=== PATIENT | female | born 1950 | race Caucasian/White ===

== ENCOUNTER 2019-10-21 15:59 | Outpatient (CLI) | payer MEDICARE, OTHER, SELFPAY ==
--- NOTE | ~2019-10-21 | XR_ITS ---
EXAMINATION: XR chest 2V EXAM DATE: 10/21/2019 17:05 INDICATION: Chronic cough. TECHNIQUE: Frontal and lateral projections of the chest obtained and reviewed. Comparison is made to prior examination from 03/25/2009. FINDINGS: The lungs are clear. There are no pleural effusions. The cardiomediastinal silhouette is within normal limits. There is no pneumothorax suspected. The bones and soft tissues are unremarkab le. IMPRESSION: Unremarkable chest x-ray exam. Reviewed, dictated and finalized at location A. AL ADMINISTRATOR
--- NOTE | ~2019-10-21 | XR_ITS ---
EXAMINATION: XR sinus <3V EXAM DATE: 10/21/2019 17:05 INDICATION: Chronic cough. TECHNIQUE: Frontal, lateral, submentovertex projections of the skull. There is no prior study for c omparison. FINDINGS: There is hyperostosis frontalis. Nearly completely opacified left maxillary sinus, with so me aeration identified at the cephalad most portion, could indicate that some of this opacity is flui d. There may be mild right maxillary sinus mucoperiosteal disease, but otherwise sinuses and mastoid air cells appear well-aerated. Orbits are unremarkable. Dental crowns. IMPRESSION: Nearly completely opacified left frontal sinus. Reviewed, dictated and finalized at location A. ESTRATOR
[2019-10-21 16:36] LABS: Basophils Absolute Auto 0.1 K/mm3 (0.0-0.1); Basophils Percent Auto 0.9 % (0.2-1.2); Eosinophils Absolute Auto 0.1 K/mm3 (0-0.3); Eosinophils Percent Auto 0.9 % (0-4.4); Hematocrit 39.3 % (37.0-47.0); Immature Granulocyte Absolute 0.04 K/mm3 (0.00-0.031); Immature Granulocyte Percent A 0.6 % (0-0.5); Lymphocytes Absolute Auto 0.99 K/mm3 (0.9-3.2); Lymphocytes Percent Auto 14.8 % (18.3-44.2); Mean Corpuscular HGB Conc 35.6 g/dl (32-36); Mean Corpuscular Hemoglobin 35.4 pg (26-34); Mean Corpuscular Volume 99.2 fl (80-100); Mean Platelet Volume 9.5 fl (7.4-10.4); Monocytes Absolute Auto 0.8 K/mm3 (0.1-0.6); Monocytes Percent Auto 11.9 % (2.6-8.5); Neutrophils Absolute Auto 4.8 K/mm3 (1.3-6.7); Neutrophils Percent Auto 70.9 % (45.5-73.1); Platelet Count Result 274 k/mm3 (150-375); Red Blood Count 3.96 M/mm3 (4.2-5.4); Red Cell Distribution Width 12.5 % (11.5-14.5); White Blood Count 6.7 K/mm3 (4.5-10.0)
[2019-10-21 16:48] LABS: Alanine Aminotransferase 70 U/L (4-35); Albumin Level 4.8 g/dL (3.5-5.1); Alkaline Phosphatase 156 U/L (38-126); Aspartate Amino Transferase 99 U/L (14-36); Bilirubin,Total 1.1 mg/dL (0.2-1.3); Blood Urea Nitrogen 12 mg/dL (7-17); Calcium 9.1 mg/dL (8.4-10.2); Carbon Dioxide 20 mmol/L (22-30); Chloride 87 mmol/L (98-107); Estimated Glomerular Filt Rate > 60; Glucose 95 mg/dL (65-105); Potassium 4.5 mmol/L (3.4-5.0); Sodium 124 mmol/L (137-145)
[2019-10-21 17:25] LABS: Free T4 Free Thyroxine 1.54 ng/mL (0.78-2.19)
[2019-10-21 17:59] LABS: Folic Acid > 20.0 ng/mL (2.76->20)
== END 2019-10-21 16:00 | disposition home or self-care (01) ==
LOC: ANHLAB 16:05
PROVIDERS: PCP Internal Medicine; Visit Provider Internal Medicine
DX: E53.8 Deficiency of other specified B group vitamins (principal); I10 Essential (primary) hypertension; Z79.899 Other long term (current) drug therapy; R05 Cough; J32.9 Chronic sinusitis, unspecified
CPT/HCPCS: 36415; 70210; 71046; 80053; 82607; 82746; 84439; 84443; 85025

== ENCOUNTER 2019-10-28 08:44 | Outpatient (CLI) | payer MEDICARE, OTHER, SELFPAY ==
--- NOTE | ~2019-10-28 | XR_ITS ---
XR UGIAC w barium swallow DATE: 10/28/2019 09:41 INDICATION: Cough, nausea TECHNIQUE: Single contrast upper gastrointestinal series COMPARISON: 11/11/2016 air contrast upper gastrointestinal series FINDINGS: There is a sliding hiatal hernia. Status post partial gastrectomy with patent afferent and efferent loops. No stricture, ulceration, o bstruction. The small bowel appears normal. IMPRESSION: Small sliding hiatal hernia Partial gastrectomy Status post lumbar surgical fusion Reviewed, dictated and finalized at Location A. Reviewed, dictated and finalized at location A.
== END 2019-10-28 08:45 | disposition home or self-care (01) ==
PROVIDERS: PCP Internal Medicine; Visit Provider Internal Medicine
DX: R05 Cough (principal); K44.9 Diaphragmatic hernia without obstruction or gangrene; Z90.49 Acquired absence of other specified parts of digestive tract; Z98.1 Arthrodesis status
CPT/HCPCS: 74246

== ENCOUNTER 2019-10-31 09:26 | Outpatient (CLI) | payer MEDICARE, OTHER, SELFPAY ==
--- NOTE | ~2019-10-31 | US_ITS ---
US abdomen complete DATE: 10/31/2019 10:15 INDICATION: Elevated liver enzymes TECHNIQUE: Real-time imaging and Doppler analysis of the abdomen COMPARISON: 05/15/2017 CT abdomen 02/14/2017 complete abdominal ultrasound examination FINDINGS: There is hepatic steatosis. No hepatic or pancreatic space-occupying mass lesion is evident . Normal hepatic portal venous flow direction. Status post cholecystectomy. The common bile duct measures approximately 4.5 mm-7 diameter, which may be within normal range considering cholecystectomy. Recommend correlation with serum bilirubin level . Right kidney measures approximately 9.6 cm length. Left kidney measures approximately 10 cm length. N o renal mass lesion or hydronephrosis. Normal caliber of the abdominal aorta. Inferior vena cava is u nremarkable. Normal splenic size. IMPRESSION: Hepatic steatosis Status post cholecystectomy; this may account for common bile duct diameter up to 7 mm. Recommend cor relation with serum bilirubin level. Reviewed, dictated and finalized at Location A. Reviewed, dictated and finalized at location A. IMPRESSION: Hepatic steatosis Status post cholecystectomy; this may account for common bile duct diameter up to 7 mm. Recommend correlation with serum bilirubin level.
== END 2019-10-31 09:27 | disposition home or self-care (01) ==
PROVIDERS: PCP Internal Medicine; Visit Provider Internal Medicine
DX: R74.8 Abnormal levels of other serum enzymes (principal); K76.0 Fatty (change of) liver, not elsewhere classified
CPT/HCPCS: 76700

== ENCOUNTER 2020-01-27 15:07 | Inpatient (IN) | payer MEDICARE, OTHER, SELFPAY ==
[2020-01-27] VITALS (25 sets, daily range): BP systolic 117–140; BP diastolic 68–114; PULSE 90–110; RESP 12–30; TEMP 36.2–37; O2SAT 98–100; BMI 28.5
--- NOTE | 2020-01-27 15:32 | ECG_ITS ---
Measurements Intervals [place] Rate: 101 P: 24 DC: 168 QRS: -16 QRSD: 88 T: 30 QT: 349 QTc: 454 Interpretive Statements SINUS TACHYCARDIA INCOMPLETE RIGHT BUNDLE BRANCH BLOCK LOW QRS VOLTAGE IN PRECORDIAL LEADS BORDERLINE R WAVE PROGRESSION, ANTERIOR LEADS MINIMAL Q WAVES- HIGH LATERAL LEADS BORDERLINE T WAVE ABNORMALITY- ANTERIOR LEADS ABNORMAL ECG Electronically Signed On 01-27-2020 15:49:25 CDT by Marciano Dominguez D.O.
--- NOTE | 2020-01-27 15:58 | ED.GIBLEED ---
HPI - GI Bleed General Chief complaint: GI Bleed Stated complaint: low blood pressure Time Seen by Provider: 01/27/20 15:28 Source: patient Mode of arrival: ambulatory Limitations: no limitations History of Present Illness HPI Narrative: This patient is a 69 year old female who prsents for evaluation for dark stools and lightheadness. Patient states she started noticing a change in her BM 3 weeks ago. She reports constipation and when she has a BM it is black. She reports her last BM was yesterday and it was black. She reports intermittent epigastic burning pain for 3 weeks as well. She has lightheadedness with position. She states before all these symptoms she was having issues with nausea and vomiting. She denies vomiting in 3 weeks. She also states she fell three weeks ago and she suffered a thoracic fracture. She was sent to ER by her PCP due to her appearing pale with HR 111. He also reports patient had blood pressure 86 systolic palp. She takes protonix daily. MD complaint: melena Related Data Home Medications Medication Instructions Recorded Confirmed albuterol sulfate 90 mcg/actuation 1 puff INHALATION Q4H PRN 06/22/19 10/21/19 aerosol inhaler bupropion HCl 150 mg tablet,12 hr 150 mg PO QAM 06/22/19 10/21/19 sustained-release fluticasone propionate 50 1 spray NASAL DAILY 06/22/19 10/21/19 mcg/actuation nasal spray,suspension folic acid 1 mg tablet 1 mg PO DAILY 06/22/19 10/21/19 mecobalamin (vitamin B12) 1,000 1,000 mcg SUBLINGUAL DAILY 06/22/19 10/21/19 mcg disintegrating tablet,sublingual multivitamin 1 tablet PO DAILY 06/22/19 10/21/19 ketoconazole 2 % shampoo 1 applic TOPICAL 2XW 10/21/19 10/21/19 pantoprazole 40 mg tablet,delayed 40 mg PO BID tablet 10/21/19 10/21/19 release vortioxetine 20 mg tablet 20 mg PO DAILY 10/21/19 10/21/19 oxycodone-acetaminophen 5 mg-325 1 tablet PO Q6H PRN 01/27/20 mg tablet pimecrolimus 1 % topical cream 1 applic TOPICAL BID 01/27/20 Allergies Allergy/AdvReac Type Severity Reaction Status Date / Time tetanus immune globulin Allergy Severe FEVER, FLU Verified 01/27/20 18:16 SX. adhesive tape Allergy Unknown Rash Verified 10/21/19 15:13 cefaclor Allergy Unknown Hives Verified 10/21/19 15:13 tetanus toxoid, adsorbed Allergy Unknown Unknown Verified 10/21/19 15:13 Tetanus Vaccines and Toxoid Allergy Unknown Unknown Verified 10/21/19 15:13 Review of Systems Review of Systems: All systems reviewed & are unremarkable except as noted in HPI and below Constitutional: Constitutional: Denies chills and Denies fever(s) ENT: Denies epistaxis Cardiovascular: Cardiovascular: Denies chest pain Respiratory: Respiratory: Denies cough and Denies dyspnea Gastrointestinal: Gastrointestinal: Reports abdominal pain, Reports melena, Reports constipation and Denies vomiting Neurologic: Reports dizziness and Denies focal weakness PMF Past Medical History Medical History (Updated 01/27/20 @ 19:49 by Leslie Galvan MD) Anxiety with depression Basal cell carcinoma of nose Benign essential hypertension Benign fundic gland polyps of stomach (~05/2017) Chronic sinusitis Eczema Gastroesophageal reflux disease Hyperplastic polyp of sigmoid colon Restless leg syndrome Vitamin B12 deficiency Vitamin D deficiency Surgical History Surgical History (Updated 01/27/20 @ 17:11 by Jyothi Silva PA-C) History of appendectomy History of cholecystectomy History of exploratory laparotomy (~10/2003) Removal of anterior abdominal wall mass (benign fibroid), adhesiolysis, and bilateral salpingo-oophorectomy with bladder repair. History of gastric bypass History of lumbar fusion History of vaginal hysterectomy Status post functional endoscopic sinus surgery And bilateral maxillary antrostomy. Status post surgical removal of malignant neoplasm of skin Excision basal cell carcinoma from the bridge of the nose. Family History Family History (Updat
[2020-01-27 16:17] LABS: Basophils Absolute Auto 0.1 K/mm3 (0.0-0.1); Basophils Percent Auto 0.8 % (0.2-1.2); Eosinophils Absolute Auto 0.2 K/mm3 (0-0.3); Eosinophils Percent Auto 1.4 % (0-4.4); Hematocrit 27.2 % (37.0-47.0); Hemoglobin 9.2 g/dL (12.0-15.0); Immature Granulocyte Absolute 0.18 K/mm3 (0.00-0.031); Immature Granulocyte Percent A 1.5 % (0-0.5); Lymphocytes Absolute Auto 0.88 K/mm3 (0.9-3.2); Lymphocytes Percent Auto 7.5 % (18.3-44.2); Mean Corpuscular HGB Conc 33.8 g/dl (32-36); Mean Corpuscular Hemoglobin 36.4 pg (26-34); Mean Corpuscular Volume 107.5 fl (80-100); Mean Platelet Volume 11.6 fl (7.4-10.4); Monocytes Absolute Auto 0.9 K/mm3 (0.1-0.6); Monocytes Percent Auto 7.5 % (2.6-8.5); Neutrophils Absolute Auto 9.6 K/mm3 (1.3-6.7); Neutrophils Percent Auto 81.3 % (45.5-73.1); Nucleated Red Blood Cells Perc 0.2 % (0.0-0.2); Platelet Count Result 456 k/mm3 (150-375); Red Blood Count 2.53 M/mm3 (4.2-5.4); Red Cell Distribution Width 14.5 % (11.5-14.5); White Blood Count 11.8 K/mm3 (4.5-10.0)
[2020-01-27 16:27] LABS: Prothrombin Time 12.6 Seconds (11.1-14.7)
[2020-01-27 16:28] LABS: Partial Thromboplastin Time 28.9 SECONDS (22.3-36.8)
[2020-01-27 16:30] LABS: Alanine Aminotransferase 14 U/L (4-35); Albumin Level 3.8 g/dL (3.5-5.1); Alkaline Phosphatase 152 U/L (38-126); Aspartate Amino Transferase 22 U/L (14-36); Bilirubin,Total 0.3 mg/dL (0.2-1.3); Blood Urea Nitrogen 9 mg/dL (7-17); Calcium 8.8 mg/dL (8.4-10.2); Carbon Dioxide 24 mmol/L (22-30); Chloride 101 mmol/L (98-107); Estimated CRCL calculation 52 ml/min; Estimated Glomerular Filt Rate 55; Glucose 100 mg/dL (65-105); Lactic Acid Reflex 0.9 mmol/L (0.7-2.1); Sodium 132 mmol/L (137-145)
--- NOTE | 2020-01-27 17:03 | PM.IMHP ---
H&P: HPI History of Present Illness Chief complaint: ?Low blood pressure.? Narrative: Juliet Weinstein is a 69-year-old female with a medical history significant for hypertension and GERD who presented to the emergency department earlier this afternoon from Dr. Klein' office for evaluation of ?low blood pressure.? She has had longstanding problems with constipation, and typically has a bowel movement 2 times per week, however has been more constipated recently. In the last 3 weeks, she has only had 2 bowel movements and she had to take stool softeners and milk of magnesia in order to make that happen. Her stools with both of those bowel movements were very dark, and she made an appointment with Dr. Klein today for evaluation of such. On arrival, her blood pressure was reportedly 88 over palpable and she was directed to the emergency department. There she was found to have a drop in her hemoglobin (14.0 --> 9.2) in approximately 3 months time. With further questioning, she is been having GI issues for the past several months and in fact had and upper GI with barium swallow on 10/28/2019 for evaluation of nausea and coughing with solids. That study was unremarkable, however she continues to have symptoms which also include belching and abdominal bloating. She does suffer from GERD, and says that is not necessarily any worse than usual, for which she takes a PPI and Tums on occasion. Coffee seems to upset her stomach and she has been avoiding that for the last several months. She drinks perhaps 1 glass of wine in evening. She also mentions having dizzy spells, mainly with position changes, and in fact she is wondering if her dizziness may have caused her fall several weeks ago, in which she sustained a compression fracture. She was given muscle relaxers and narcotics for pain without much benefit. Instead, she has been taking Advil 600 to 800 milligrams 3 times a day for the past 3 weeks. She has no history of peptic ulcers. She denies significant abdominal pain, only occasional upper abdominal burning which she attributes to GERD. No recent hematemesis but she does report a small amount of bright red blood while retching a couple of weeks ago. Review of Systems Review of Systems: Narrative: Twelve systems were reviewed with pertinent positives and negatives as per HPI. No fever, chills, or sweats. She does suffer from seasonal rhinitis this time of year. She denies cold and flu symptoms. No chest pain or palpitations. No shortness of breath. She has been a bit more fatigued recently. Except as documented, all other systems were reviewed and are negative. [facility] Past Medical History Medical History (Updated 01/27/20 @ 19:49 by Leslie Galvan MD) Anxiety with depression Basal cell carcinoma of nose Benign essential hypertension Benign fundic gland polyps of stomach (~05/2017) Chronic sinusitis Eczema Gastroesophageal reflux disease Hyperplastic polyp of sigmoid colon Restless leg syndrome Vitamin B12 deficiency Vitamin D deficiency Surgical History Surgical History History of appendectomy History of cholecystectomy History of exploratory laparotomy (~10/2003) Removal of anterior abdominal wall mass (benign fibroid), adhesiolysis, and bilateral salpingo-oophorectomy with bladder repair. History of gastric bypass History of lumbar fusion History of vaginal hysterectomy Status post functional endoscopic sinus surgery And bilateral maxillary antrostomy. Status post surgical removal of malignant neoplasm of skin Excision basal cell carcinoma from the bridge of the nose. Family History Family History Sibling Family history of lung cancer Patient's sister is Father Family history of malignant melanoma Acute myocardial infarction Family history of throat cancer Mother Family history of lung cancer Other Fa
[2020-01-27 17:44] LABS: Hematocrit 23.9 % (37.0-47.0)
--- NOTE | 2020-01-27 18:29 | ADMGEN ---
This patient, Juliet Weinstein, was admitted to Medical Room 243-. Patient/family oriented to hospital policies and general routines including ID bracelet, bed and alarms, visiting hours, pain management, procedures, bathroom and other care routines, personal items, smoking policy, room service/diet, and visiting hours. Valuables list has been completed. Information on how to activate the Rapid Response Team has been discussed. Patient/Family are encouraged to report perceived risks to care and to ask questions if they do not understand what they are told or what they should do.
[2020-01-27] MEDS: LACTATED RINGERS 1,000 ML 125 ML IV CONT (18:51)
[2020-01-27] MEDS: LORAZEPAM 1 MG TABLET PO (22:19)
[2020-01-27] MEDS: PANTOPRAZOLE SODIUM IV 40 MG VIAL IV PUSH (22:20)
[2020-01-27 23:25] LABS: Hematocrit 21.1 % (37.0-47.0)
[2020-01-27 23:27] LABS: Hemoglobin 6.9 g/dL (12.0-15.0)
[2020-01-27 23:40] LABS: Blood Urea Nitrogen 10 mg/dL (7-17); Calcium 7.8 mg/dL (8.4-10.2); Carbon Dioxide 24 mmol/L (22-30); Chloride 106 mmol/L (98-107); Estimated CRCL calculation 58 ml/min; Estimated Glomerular Filt Rate > 60; Glucose 117 mg/dL (65-105); Magnesium 1.9 mg/dL (1.6-2.3); Potassium 3.2 mmol/L (3.4-5.0); Sodium 134 mmol/L (137-145)
[2020-01-27 23:54] LABS: Iron 24 ug/dL (37-170)
[2020-01-28] VITALS (17 sets, daily range): BP systolic 106–151; BP diastolic 58–87; PULSE 68–80; RESP 16–20; TEMP 35.8–36.8; O2SAT 95–100; BMI 28.5
[2020-01-28 00:04] LABS: Percent Iron Saturation 9 % (20-50)
[2020-01-28] MEDS: SODIUM CHLORIDE 0.9% IV 250 ML 30 ML IV CONT (00:50)
[2020-01-28 00:52] LABS: Vitamin B12 > 1000.0 pg/mL (239-931)
[2020-01-28] MEDS: LACTATED RINGERS 1,000 ML 125 ML IV CONT (04:16)
[2020-01-28 08:18] LABS: Hematocrit 31.8 % (37.0-47.0); Hemoglobin 10.8 g/dL (12.0-15.0)
[2020-01-28] MEDS: KCL 20 MEQ/SW 100 ML 100 ML 50 MEQ IVPB (08:21)
[2020-01-28] MEDS: PANTOPRAZOLE SODIUM IV 40 MG VIAL IV PUSH ×2 (08:22→19:58)
[2020-01-28 08:31] LABS: Blood Urea Nitrogen 8 mg/dL (7-17); Carbon Dioxide 24 mmol/L (22-30); Chloride 109 mmol/L (98-107); Estimated CRCL calculation 65 ml/min; Estimated Glomerular Filt Rate > 60; Glucose 92 mg/dL (65-105); Potassium 3.6 mmol/L (3.4-5.0); Sodium 135 mmol/L (137-145)
--- NOTE | 2020-01-28 10:25 | PC.NURSE ---
Pt to GI lab via stretcher, IV intact. Judy sent with patient.
[2020-01-28] MEDS: LACTATED RINGERS 1,000 ML 150 ML IV CONT (10:34)
--- NOTE | 2020-01-28 10:35 | WPDANESEPPF ---
Anes - Initial Pre Proc Eval Procedure: Operation Date: 01/28/20 11:30 Proposed Procedures p Esophagogastroduodenoscopy - Adiel Lofton MD Date/Time: 01/28/20 10:35 Surgeon: Brianna Dick PA-C Pre Op Diagnosis: ?Low blood pressure.? Patient Data Age: 69 Gender: F Height: 5 ft 7 in Weight: 82.7 kg Last Vital Signs Temp 36.2 C L 01/28/20 06:58 Pulse 78 01/28/20 06:58 Resp 18 01/28/20 06:58 BP 123/71 01/28/20 06:58 Pulse Ox 99 01/28/20 06:58 Allergies Allergy/AdvReac Type Severity Reaction Status Date / Time tetanus immune globulin Allergy Severe FEVER, FLU Verified 01/28/20 10:31 SX. adhesive tape Allergy Unknown Rash Verified 01/28/20 10:31 cefaclor Allergy Unknown Hives Verified 01/28/20 10:31 tetanus toxoid, adsorbed Allergy Unknown Unknown Verified 01/28/20 10:31 Tetanus Vaccines and Toxoid Allergy Unknown Unknown Verified 01/28/20 10:31 Home Medications Medication Instructions Recorded Confirmed Type albuterol sulfate 90 mcg/actuation 1 puff INHALATION Q4H PRN 06/22/19 01/27/20 History aerosol inhaler bupropion HCl 150 mg tablet,12 hr 150 mg PO QAM 06/22/19 01/27/20 History sustained-release fluticasone propionate 50 1 spray NASAL DAILY 06/22/19 01/27/20 History mcg/actuation nasal spray,suspension folic acid 1 mg tablet 1 mg PO DAILY 06/22/19 01/27/20 History mecobalamin (vitamin B12) 1,000 1,000 mcg SUBLINGUAL DAILY 06/22/19 01/27/20 History mcg disintegrating tablet,sublingual multivitamin 1 tablet PO DAILY 06/22/19 01/27/20 History hydrochlorothiazide 12.5 mg tablet 12.5 mg PO DAILY #90 tablet 08/03/19 01/27/20 Rx ketoconazole 2 % shampoo 1 applic TOPICAL 2XW 10/21/19 01/27/20 History pantoprazole 40 mg tablet,delayed 40 mg PO DAILY tablet 10/21/19 01/27/20 History release vortioxetine 20 mg tablet 20 mg PO DAILY 10/21/19 01/27/20 History benazepril 40 mg tablet 40 mg PO DAILY #90 tablet 12/27/19 01/27/20 Rx Cetaphil 1 applic TOPICAL BID 01/27/20 01/27/20 History betamethasone dipropionate 1 applic TOPICAL BID 01/27/20 01/27/20 History brexpiprazole [Rexulti] 1 mg PO DAILY 01/27/20 01/27/20 History duloxetine 30 mg PO DAILY 01/27/20 01/27/20 History ibuprofen 200 mg PO Q6-8H PRN 01/27/20 01/27/20 History lorazepam 1 mg PO HS 01/27/20 01/27/20 History montelukast 10 mg PO HS 01/27/20 01/27/20 History oxycodone-acetaminophen 5 mg-325 1 tablet PO Q6H PRN 01/27/20 01/27/20 History mg tablet pimecrolimus 1 % topical cream 1 applic TOPICAL BID 01/27/20 01/27/20 History triamcinolone acetonide 1 applic TOPICAL BID 01/27/20 01/27/20 History vitamin B complex [B-Complex] 1 tablet PO DAILY 01/27/20 01/27/20 History Laboratory Tests 01/27/20 01/27/20 01/27/20 16:11 16:11 16:11 WBC 11.8 K/mm3 H K/mm3 (4.5-10.0) RBC 2.53 M/mm3 L M/mm3 (4.2-5.4) Hgb 9.2 g/dL L D g/dL (12.0-15.0) Hct 27.2 % L % (37.0-47.0) MCV 107.5 fl H fl (80-100) MCH 36.4 pg H pg (26-34) MCHC 33.8 g/dl g/dl (32-36) RDW 14.5 % % (11.5-14.5) Plt Count 456 k/mm3 H D k/mm3 (150-375) MPV 11.6 fl H fl (7.4-10.4) Immature Gran % (Auto) 1.5 % H % (0-0.5) Neut % (Auto) 81.3 % H % (45.5-73.1) Lymph % (Auto) 7.5 % L % (18.3-44.2) George % (Auto) 7.5 % % (2.6-8.5) Eos % (Auto) 1.4 % % (0-4.4) Baso % (Auto) 0.8 % % (0.2-1.2) Lymph # (Auto) 0.88 K/mm3 L K/mm3 (0.9-3.2) George # (Auto) 0.9 K/mm3 H K/mm3 (0.1-0.6) Eos # (Auto) 0.2 K/mm3 K/mm3 (0-0.3) Baso # (Auto) 0.1 K/mm3 K/mm3 (0.0-0.1) Abs Immat Gran (auto) 0.18 K/mm3 H K/mm3 (0.00-0.031) Absolute Neuts (auto) 9.6 K/mm3 H K/mm3 (1.3-6.7) Absolute Nucleated RBC 0.0 K/mm3 K/mm3 (0.0-0.012) Nucleated RBC % 0.2 % % (0.0-0.2) PT 12.6 Seconds Seconds (11.1-14.
--- NOTE | 2020-01-28 11:09 | WPDGICN ---
Assessment and Plan Assessment and plan (1) Acute upper GI bleed: Code(s): K92.2 - Gastrointestinal hemorrhage, unspecified Status: Acute Assessment and Plan: Patient is suspected of having upper GI bleeding because of black melenic stools that are Hemoccult positive. Significant decline in hemoglobin. Plan is to follow hemoglobin closely treat with proton pump inhibitor. EGD will be performed to assess this today. (2) Hx of gastric bypass: Code(s): Z98.84 - Bariatric surgery status Status: Acute Assessment and Plan: Patient has a prior history of gastric bypass. GI Consult Note Consult date/time: 01/28/20 11:09 HPI: Juliet Weinstein is a 69 year old female Seen in evaluation at the request of the hospitalist service. Patient followed by Dr. Klein as an outpatient. Patient reports progressive weakness over last several weeks. She present to the emergency room last evening found to have significant decline in hemoglobin. Black melenic stools have been noted for about 2 days. Patient's past history is significant for gastric bypass. Review of Systems Review of Systems: All systems reviewed & are unremarkable except as noted in HPI and below PMFSH Past Medical History Medical History Anxiety with depression Basal cell carcinoma of nose Benign essential hypertension Benign fundic gland polyps of stomach (~05/2017) Chronic sinusitis Eczema Gastroesophageal reflux disease Hyperplastic polyp of sigmoid colon Restless leg syndrome Vitamin B12 deficiency Vitamin D deficiency Surgical History Surgical History History of appendectomy History of cholecystectomy History of exploratory laparotomy (~10/2003) Removal of anterior abdominal wall mass (benign fibroid), adhesiolysis, and bilateral salpingo-oophorectomy with bladder repair. History of gastric bypass History of lumbar fusion History of vaginal hysterectomy Status post functional endoscopic sinus surgery And bilateral maxillary antrostomy. Status post surgical removal of malignant neoplasm of skin Excision basal cell carcinoma from the bridge of the nose. Family History Family History Sibling Family history of lung cancer Patient's sister is Father Family history of malignant melanoma Acute myocardial infarction Family history of throat cancer Mother Family history of lung cancer Other Family history of congestive heart failure Family history of malignant neoplasm Social History Social History Social History: Surrogate decision maker: Vernon Rapien, . Code status: Full code. Smoking status: Never smoker Alcohol intake: current Drinks per week: 8 Substance use: never Additional living arrangements comments: Lives with spouse in [place]. Their 13-year-old grandson also lives with them. 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 Gender identity (if verbalized by the patient): Female Spiritual care concerns: No Meds Home Medications and Allergies Home Medications Medication Instructions Recorded Confirmed Type albuterol sulfate 90 mcg/actuation 1 puff INHALATION Q4H PRN 06/22/19 01/27/20 History aerosol inhaler bupropion HCl 150 mg tablet,12 hr 150 mg PO QAM 06/22/19 01/27/20 History sustained-release fluticasone propionate 50 1 spray NASAL DAILY 06/22/19 01/27/20 History mcg/actuation nasal spray,suspension folic acid 1 mg tablet 1 mg PO DAILY 06/22/19 01/27/20 History mecobalamin (vitamin B12) 1,000 1,000 mcg SUBLINGUAL DAILY 06/22/19 01/27/20 History mcg disintegrating tablet,sublingual multivitamin 1 tablet PO DAILY 06/22/19 01/27/20 History
[2020-01-28] MEDS: BENZOCAINE (*SP) 60 ML SPRAY CAN (HURRICAINE) 1 SPRAY MUCOUS MEM (11:22)
[2020-01-28 12:29] LABS: Hematocrit 38.1 % (37.0-47.0); Hemoglobin 12.1 g/dL (12.0-15.0)
[2020-01-28] MEDS: CYANOCOBALAMIN 1,000 MCG TABLET 1000 MCG PO (12:37)
[2020-01-28] MEDS: DULOXETINE HCL 30 MG CAPSULE.DR PO (12:37)
[2020-01-28] MEDS: buPROPion HCL XL (24 HR) 150 MG TABCR PO (12:37)
[2020-01-28] MEDS: MULTIVITAMINS THERAPEUTIC TAB (*BKC) 1 TABLET PO (12:37)
[2020-01-28] MEDS: VITAMIN B COMPLEX CAPSULE 1 CAP PO (12:37)
[2020-01-28] MEDS: FOLIC ACID 1 MG TABLET PO (12:37)
[2020-01-28] MEDS: PEG (High)/E-LYTE SOLN 4,000 ML BTL 4000 ML PO (12:38)
--- NOTE | 2020-01-28 14:37 | PM.IMPN ---
Progress Note: A&P Assessment and Plan (1) Dark stools: Code(s): R19.5 - Other fecal abnormalities Status: Acute Assessment and Plan: -----patient has a significant drop from her hemoglobin in October which was 14.0 down to 6.9 last night. She was transfused 2 units and now her hemoglobin is 12.1. This makes me question the validity of the initial hemoglobin of 6.9. Nevertheless, the patient is doing well in the EGD was normal. Continue PPI. Plan for colonoscopy tomorrow. Likely discharge tomorrow. (2) Macrocytic anemia: Code(s): D53.9 - Nutritional anemia, unspecified Status: Acute Assessment and Plan: -----patient appears iron deficient and is probably not absorbing much because her gastric bypass. Will do IV iron today. May need IV iron transfusions 3 hematology outpatient if this continues. (3) Gastroesophageal reflux disease: Code(s): K21.9 - Gastro-esophageal reflux disease without esophagitis Status: Acute Assessment and Plan: -----continue PPI (4) Hypotension: Code(s): I95.9 - Hypotension, unspecified Status: Acute Assessment and Plan: -----Systolic blood pressure was reportedly [address] Klein' office. She has not had any recurrence of this and her last systolic blood pressure was 134. (5) Electrolyte imbalance: Code(s): E87.8 - Other disorders of electrolyte and fluid balance, not elsewhere classified Status: Acute Assessment and Plan: -----improved. Sodium today was 134 and her potassium was 3.6. (6) Benign essential hypertension: Code(s): I10 - Essential (primary) hypertension Status: Acute Assessment and Plan: -----still holding antihypertensives at this time. Will likely be discharged on her regular home meds (7) Anxiety with depression: Code(s): F41.8 - Other specified anxiety disorders Status: Acute Assessment and Plan: -----some her medications are not formulary, she will likely be discharged early tomorrow and can resume them at home Time Spent With Patient Time with patient: 25 - 35 minutes Subjective Date/time seen: 01/28/20 14:37 Interval history: Pt is a 69-year-old female here for melena and with significant anemia patient. Patient was seen today and says that she has some burning across her abdomen but other than that she feels okay. She said about 2 weeks ago she threw up bright red blood but has not had any issues since. She continues to have dark stool but has not had a bowel movement in a week. She had a colonoscopy a year ago which showed 1 polyp. Although she has had epigastric burning for a couple months, she has not tried to take any Tums or Prilosec. She denies lightheadedness, dizziness, chest pain, fevers, chills, nausea or vomiting. Review of Systems Review of Systems: All systems reviewed & are unremarkable except as noted in HPI and below Exam Narrative: Exam Narrative: General: Well developed well nourished patient resting comfortably in bed in NAD HEENT: normocephalic Neck: supple Neuro: Alert and oriented x 4. CV:RRR Resp:CTA Abd: Soft, non distended. No pain to palpation. Positive bowel sounds Extremities: No swelling, erythema, or pain to palpation. Objective Data Vital Signs Vital Signs: Vital Signs - 24 hr 01/27/20 15:13 01/27/20 15:17 01/27/20 15:18 Temperature 98.6 F Pulse Rate 110 H 106 H 104 H Respiratory Rate 16 18 17 Blood Pressure 140/91 H 135/82 Pulse Oximetry 100 01/27/20 15:30 01/27/20 15:31 01/27/20 15:32 Temperature Pulse Rate 100 101 H 100 Respiratory Rate 21 H 19 16 Blood Pressure 129/68 Pulse Oximetry 01/27/20 15:53 01/27/20 16:00 01/27/20 16:01 Temperature Pulse Rate 93 95 93 Respiratory Rate 21 H 18 22 H Blood Pressure 125/77 Pulse Oximetry 01/27/20 16:15 01/27/20 16:16 01/27/20 16:17 Temperature
[2020-01-28 14:58] LABS: IFOB Positive Control Positive; Immunochemical Fecal Occult Bl Negative (N)
[2020-01-28] MEDS: IRON SUCROSE COMPLEX 100 MG in SODIUM CHLORIDE 0.9% IV 50 ML 220 MG IVPB (15:18)
[2020-01-28] MEDS: LACTATED RINGERS 1,000 ML 80 ML IV CONT (17:57)
[2020-01-28 18:22] LABS: Hemoglobin 11.2 g/dL (12.0-15.0)
[2020-01-28] MEDS: LIDOCAINE 5% PATCH TRANSDERM (19:53)
[2020-01-28] MEDS: LORAZEPAM 1 MG TABLET PO (19:58)
[2020-01-29 06:00] VITALS: BP 118/70; PULSE 78; RESP 20; TEMP 36.4; O2SAT 98
[2020-01-29 06:06] LABS: Hematocrit 30.1 % (37.0-47.0); Hemoglobin 10.4 g/dL (12.0-15.0); Mean Corpuscular HGB Conc 34.6 g/dl (32-36); Mean Corpuscular Hemoglobin 35.3 pg (26-34); Mean Platelet Volume 9.7 fl (7.4-10.4); Platelet Count Result 359 k/mm3 (150-375); Red Blood Count 2.95 M/mm3 (4.2-5.4); White Blood Count 6.1 K/mm3 (4.5-10.0)
[2020-01-29 06:24] LABS: Blood Urea Nitrogen 5 mg/dL (7-17); Calcium 8.2 mg/dL (8.4-10.2); Carbon Dioxide 25 mmol/L (22-30); Chloride 106 mmol/L (98-107); Estimated CRCL calculation 73 ml/min; Estimated Glomerular Filt Rate > 60; Glucose 97 mg/dL (65-105); Lactate Dehydrogenase 380 U/L (313-618); Potassium 3.7 mmol/L (3.4-5.0); Sodium 135 mmol/L (137-145)
[2020-01-29 06:33] VITALS: BP 148/94; PULSE 80; RESP 20; TEMP 36.7; O2SAT 98
[2020-01-29] MEDS: LACTATED RINGERS 1,000 ML 150 ML IV CONT (06:39)
--- NOTE | 2020-01-29 06:58 | WPDANESEFPP ---
Anes - Eval Final PreProcedure Day of Procedure 01/29/20 06:58 Patient weight: overweight Heart: regular rate and rhythm Lungs: clear to auscultation Airway: Mallampati scale class II Neurological: alert and oriented Last oral intake: >/= 8 hours ASA classification: III Emergent: no Anesthetic plan: proceed Anesthesia type and monitoring: general GIVS and standard monitoring Informed Consent: The patient's anesthetic plan and its attendant risks and benefits were discussed with the patient/family/POA. Questions were solicited and answers provided to the satisfaction of the patient/family/POA.
[2020-01-29 07:11] VITALS: BP 98/56; PULSE 70; RESP 22; O2SAT 98
[2020-01-29 07:21] VITALS: BP 115/79; PULSE 68; RESP 18; O2SAT 100
[2020-01-29 07:31] VITALS: BP 123/65; PULSE 69; RESP 18; O2SAT 99
[2020-01-29 07:45] VITALS: BP 131/68; PULSE 67; RESP 16; TEMP 36.4; O2SAT 98
[2020-01-29] MEDS: buPROPion HCL XL (24 HR) 150 MG TABCR PO (09:33)
[2020-01-29] MEDS: LIDOCAINE 5% PATCH TRANSDERM (09:33)
[2020-01-29] MEDS: DULOXETINE HCL 30 MG CAPSULE.DR PO (09:34)
[2020-01-29] MEDS: FOLIC ACID 1 MG TABLET PO (09:34)
[2020-01-29] MEDS: MULTIVITAMINS THERAPEUTIC TAB (*BKC) 1 TABLET PO (09:34)
[2020-01-29] MEDS: FLUTICASONE PROPIONATE 0.05% NA SPR 16 GM BTL (*BKC) 1 SPRAY NASAL (09:34)
[2020-01-29] MEDS: CYANOCOBALAMIN 1,000 MCG TABLET 1000 MCG PO (09:34)
[2020-01-29] MEDS: VITAMIN B COMPLEX CAPSULE 1 CAP PO (09:34)
[2020-01-29] MEDS: PANTOPRAZOLE SODIUM IV 40 MG VIAL IV PUSH (09:34)
--- NOTE | 2020-01-29 10:59 | WPDANESPN ---
Anes - Prog Note Post-Op Date/Time: 01/29/20 10:59 Cardiovascular status: normal Respiratory status: normal Airway patency: baseline Mental status: baseline Post-Op hydration status: normal Vital Signs: Last Vital Signs Temp 36.4 C 01/29/20 07:45 Pulse 67 01/29/20 07:45 Resp 16 01/29/20 07:45 BP 131/68 01/29/20 07:45 Pulse Ox 98 01/29/20 07:45 I/O: Intake & Output 01/28/20 01/29/20 01/29/20 23:59 07:59 15:59 Intake Total 50 240 Balance 50 240 Laboratory Tests 01/29/20 06:01 01/29/20 06:01 01/28/20 01/28/20 01/28/20 12:23 14:27 17:59 WBC RBC Hgb 12.1 11.2 L Hct 38.1 33.0 L MCV MCH MCHC RDW Plt Count MPV Sodium Potassium Chloride Carbon Dioxide BUN Creatinine Estim Creat Clear Calc Estimated GFR Glucose Calcium Lactate Dehydrogenase Stl Occult Blood (IFOB) Negative 01/29/20 01/29/20 06:01 06:01 WBC 6.1 RBC 2.95 L Hgb 10.4 L Hct 30.1 L MCV 102.0 H D MCH 35.3 H MCHC 34.6 RDW 15.0 H Plt Count 359 MPV 9.7 Sodium 135 L Potassium 3.7 Chloride 106 Carbon Dioxide 25 BUN 5 L Creatinine 0.70 Estim Creat Clear Calc 73 Estimated GFR > 60 Glucose 97 Calcium 8.2 L Lactate Dehydrogenase 380 Stl Occult Blood (IFOB) Post-procedural complaints: none Patient Feedback: Patient satisfied with anesthetic care.
--- NOTE | 2020-01-29 12:13 | PM.DS ---
DS: Admitting Diagnosis Admitting Diagnosis Admitting Diagnosis: Other fecal abnormalities DS: Discharge Diagnosis Discharge Diagnosis (1) Dark stools: Code(s): R19.5 - Other fecal abnormalities Status: Acute (2) Macrocytic anemia: Code(s): D53.9 - Nutritional anemia, unspecified Status: Acute (3) Gastroesophageal reflux disease: Code(s): K21.9 - Gastro-esophageal reflux disease without esophagitis Status: Acute (4) Hypotension: Code(s): I95.9 - Hypotension, unspecified Status: Acute (5) Electrolyte imbalance: Code(s): E87.8 - Other disorders of electrolyte and fluid balance, not elsewhere classified Status: Acute (6) Benign essential hypertension: Code(s): I10 - Essential (primary) hypertension Status: Acute (7) Anxiety with depression: Code(s): F41.8 - Other specified anxiety disorders Status: Acute DS: Summary Hospital Course Reason for hospitalization: Dark stools, symptomatic anemia Hospital Course: Patient is 69-year-old female who presented emergency room for evaluation for dark stools, lightheadedness and dyspnea on exertion. Patient was seen in our system in October with a hemoglobin of 14.0. When she arrived to the ER on January 26, her hemoglobin was 9.2 and dropped down to 6.9. The patient was transfused 2 units which brought her hemoglobin up to 12.1, which makes me question the accuracy of the 6.9 hemoglobin. Nevertheless, the patient underwent an EGD and colonoscopy which were essentially negative for etiology. The colonoscopy did show some diverticulosis that were nonbleeding and hemorrhoids. She looks to be iron deficient and since she had a gastric bypass, she should continue on iron supplementation which I do not think she was doing. Her B12, LDH and folate were normal. No signs of hemolytic anemia. The patient sees Dr. Klein outpatient is going to have a repeat hemoglobin and hematocrit outpatient. If she drops again, she should see a cancer registrar. I discussed this with her. She also might consider a capsule study if she continues to be anemic as well. Overall, her shortness of breath and weakness had improved. She felt ready for discharge. Patient was educated about the worrisome signs and symptoms come back to emergency room for was discharged stable condition. Status at Discharge Functional status at discharge: independent ambulation Overall status at discharge: patient is back to baseline Time Spent with Patient Time attestation: Total time spent providing and/or coordinating discharge services:32 min Time spent: Greater than 30 minutes Exam Narrative: Exam Narrative: General: Well developed well nourished patient resting comfortably in bed in NAD HEENT: normocephalic Neck: supple Neuro: Alert and oriented x 4. CV:RRR Resp:CTA Abd: Soft, non distended. No pain to palpation. Positive bowel sounds Extremities: No swelling, erythema, or pain to palpation. DS: Data Data Completed and Pending Labs on day of discharge: Labs from last 24 hours 01/29/20 01/29/20 01/28/20 06:01 06:01 17:59 WBC 6.1 RBC 2.95 L Hgb 10.4 L 11.2 L Hct 30.1 L 33.0 L MCV 102.0 H D MCH 35.3 H MCHC 34.6 RDW 15.0 H Plt Count 359 MPV 9.7 Sodium 135 L Potassium 3.7 Chloride 106 Carbon Dioxide 25 BUN 5 L Creatinine 0.70 Estim Creat Clear Calc 73 Estimated GFR > 60 Glucose 97 Calcium 8.2 L Lactate Dehydrogenase 380 Stl Occult Blood (IFOB) 01/28/20 01/28/20 14:27 12:23 WBC RBC Hgb 12.1 Hct 38.1 MCV MCH MCHC RDW Plt Count MPV Sodium Potassium Chloride Carbon Dioxide BUN Creatinine Estim Creat Clear Calc Estimated GFR Glucose Calcium Lactate Dehydrogenase Stl Occult Blood (IFOB) Negative Discharge Plan Discharge Attending physician on discharge: Yaw Aguillon
== END 2020-01-29 12:55 | disposition home or self-care (01) | DRG 378 ==
LOC: ANHED 17:06 → ANH2MED 17:54
PROVIDERS: Internal Medicine Gastroenterology; Physician Assistant; Admitting Provider Family Medicine; Emergency Provider General Practice; PCP Internal Medicine; Visit Provider Family Medicine
PROC: 0DJ08ZZ Inspection of Upper Intestinal Tract, Via Natural or Artificial Opening Endoscopic (ICD-10-PCS; CPT 43235; principal; 2020-01-28 11:30)
PROC: 0DJD8ZZ Inspection of Lower Intestinal Tract, Via Natural or Artificial Opening Endoscopic (ICD-10-PCS; CPT 45378; principal; 2020-01-29 07:00)
DX: K92.2 Gastrointestinal hemorrhage, unspecified (principal); E87.1 Hypo-osmolality and hyponatremia; D50.9 Iron deficiency anemia, unspecified; K57.30 Diverticulosis of large intestine without perforation or abscess without bleeding; K64.8 Other hemorrhoids; D53.9 Nutritional anemia, unspecified; K21.9 Gastro-esophageal reflux disease without esophagitis; E87.6 Hypokalemia; G25.81 Restless legs syndrome; E55.9 Vitamin D deficiency, unspecified; E53.8 Deficiency of other specified B group vitamins; I95.9 Hypotension, unspecified; J32.9 Chronic sinusitis, unspecified; I10 Essential (primary) hypertension; L30.9 Dermatitis, unspecified; F41.8 Other specified anxiety disorders; Z85.828 Personal history of other malignant neoplasm of skin; Z90.49 Acquired absence of other specified parts of digestive tract; Z98.84 Bariatric surgery status; Z90.710 Acquired absence of both cervix and uterus; Z98.1 Arthrodesis status
CPT/HCPCS: 36415; 36430; 80048; 80053; 82274; 82607; 82728; 82746; 83540; 83550; 83605; 83615; 83735; 84443; 85014; 85018; 85025; 85027; 85610; 85730; 86850; 86900; 86901; 86923; 93005; 99285; A9270; C9113; J1756; J2704; J3480; J7050; J7120; P9016

== ENCOUNTER 2020-02-21 12:58 | Outpatient (CLI) | payer MEDICARE, SELFPAY ==
--- NOTE | ~2020-02-21 | MR_ITS ---
EXAMINATION: MR thoracic spine wo con DATE: 02/21/2020 14:11 INDICATION: Thoracic compression fracture. Back pain. TECHNIQUE: Magnetic resonance imaging (MRI) of the thoracic spine was performed without intravenous c ontrast. Sagittal localizer T1-weighted FSE of the cervical spine was obtained. Thoracic spine sequen melany included sagittal T2-weighted FSE, sagittal T1-weighted FSE, sagittal STIR FSE, and axial T2-weig hted FSE. COMPARISON: Lumbar spine MRI 07/22/2016 FINDINGS: There is 20 degrees levoscoliosis of thoracic spine. There is mild chronic anterior wedging of T5-T8 vertebral bodies. There is a burst fracture of T12 with 3/5 loss of height, bone marrow yancy ma, and retropulsion of bone 6 mm into central spinal canal with mild central canal stenosis. There i s mildly decreased disc height from T4-T5 through T9-T10. At T3-T4, there is a central extrusion with mild central canal stenosis and ventral indentation of the spinal cord. At T5-T6, there is a central extrusion with mild central canal stenosis and ventral indentation of the spinal cord. At T12-L1, th e disc is bulging with mild central canal stenosis. There is multilevel mild facet joint osteoarthrit is. No neural foraminal stenosis. The spinal cord signal intensity is normal. The conus medullaris is at T12-L1. IMPRESSION: 1. Acute/subacute T12 burst fracture. 2. Mild thoracic spondylosis. 3. Thoracic levoscoliosis. Reviewed, dictated and finalized at location A.
== END 2020-02-21 12:59 | disposition home or self-care (01) ==
LOC: ANHIMG 13:05
PROVIDERS: PCP Internal Medicine; Visit Provider Neurological Surgery
DX: S22.080A Wedge compression fracture of T11-T12 vertebra, initial encounter for closed fracture (principal); X58.XXXA Exposure to other specified factors, initial encounter; M47.894 Other spondylosis, thoracic region
CPT/HCPCS: 72146

== ENCOUNTER 2020-03-09 15:56 | Emergency (ER) | payer MEDICARE, SELFPAY ==
--- NOTE | 2020-03-09 15:59 | ECG_ITS ---
Measurements Intervals [place] Rate: 109 P: 20 [place]: 160 QRS: -28 QRSD: 102 T: 12 QT: 334 QTc: 452 Interpretive Statements SINUS TACHYCARDIA LOW QRS VOLTAGE IN PRECORDIAL LEADS POOR R WAVE PROGRESSION, ANTERIOR LEADS MINIMAL Q WAVES- HIGH LATERAL LEADS BORDERLINE T WAVE ABNORMALITY- ANT/INF LEADS BASELINE ARTIFACT- I, III, AVL ABNORMAL ECG Electronically Signed On 03-09-2020 20:14:21 CDT by Marciano Dominguez D.O.
[2020-03-09 16:02] VITALS: RESP 22; O2SAT 99
[2020-03-09 16:10] VITALS: BP 140/112; PULSE 110; RESP 23; TEMP 37.2; O2SAT 99
[2020-03-09 16:29] LABS: Basophils Absolute Auto 0.1 K/mm3 (0.0-0.1); Basophils Percent Auto 0.5 % (0.2-1.2); Eosinophils Percent Auto 0.1 % (0-4.4); Hematocrit 33.4 % (37.0-47.0); Hemoglobin 10.8 g/dL (12.0-15.0); Immature Granulocyte Absolute 0.08 K/mm3 (0.00-0.031); Immature Granulocyte Percent A 0.7 % (0-0.5); Lymphocytes Absolute Auto 0.74 K/mm3 (0.9-3.2); Lymphocytes Percent Auto 6.8 % (18.3-44.2); Mean Corpuscular HGB Conc 32.3 g/dl (32-36); Mean Corpuscular Hemoglobin 34.2 pg (26-34); Mean Corpuscular Volume 105.7 fl (80-100); Mean Platelet Volume 9.7 fl (7.4-10.4); Monocytes Absolute Auto 0.8 K/mm3 (0.1-0.6); Neutrophils Absolute Auto 9.2 K/mm3 (1.3-6.7); Neutrophils Percent Auto 84.9 % (45.5-73.1); Platelet Count Result 347 k/mm3 (150-375); Red Blood Count 3.16 M/mm3 (4.2-5.4); Red Cell Distribution Width 14.9 % (11.5-14.5); White Blood Count 10.9 K/mm3 (4.5-10.0)
[2020-03-09 16:40] LABS: Prothrombin Time 12.8 Seconds (11.1-14.7)
[2020-03-09 16:41] LABS: Partial Thromboplastin Time 32.6 SECONDS (22.3-36.8)
[2020-03-09 16:45] LABS: Lactic Acid Reflex 1.3 mmol/L (0.7-2.1)
[2020-03-09 16:47] LABS: Alanine Aminotransferase 46 U/L (4-35); Albumin Level 3.7 g/dL (3.5-5.1); Alkaline Phosphatase 154 U/L (38-126); Anion Gap 18.4 mmol/L (7-16); Aspartate Amino Transferase 56 U/L (14-36); Bilirubin,Total 0.6 mg/dL (0.2-1.3); Blood Urea Nitrogen 10 mg/dL (7-17); CRP 4.3 mg/dL (<1.0); Calcium 8.5 mg/dL (8.4-10.2); Carbon Dioxide 20 mmol/L (22-30); Chloride 93 mmol/L (98-107); Estimated CRCL calculation 57 ml/min; Estimated Glomerular Filt Rate > 60; Glucose 101 mg/dL (65-105); Lipase 86 U/L (23-300); Potassium 4.4 mmol/L (3.4-5.0); Sodium 127 mmol/L (137-145)
[2020-03-09 17:16] LABS: Add Urine Microscopic? YES; Appearance Urine Clear (Clear); Bilirubin Urine Negative (Negative); Blood Urine Negative (Negative); Color Urine Yellow (Yellow); Glucose Urine UA Negative (Negative); Hyaline Casts Urine 20-29 /lpf; Ketones Urine 1+ mg/dL (Negative); Leukocyte Esterase Ur Negative LEU/UL (Negative); Mucus Urine Rare /lpf; Nitrate Urine Negative (Negative); Protein Urine Negative (Negative); RBC Urine 0-2 /hpf (0-2); Specific Grav Ur 1.015 (1.001-1.035); Squamous Epithelial Cell Urine Few /hpf (Few); Urobilinogen Urine Negative mg/dL (<2.0); WBC Urine 0-3 /hpf
[2020-03-09] MEDS: SODIUM CHLORIDE 0.9% IV 1,000 ML 999 ML IV CONT ×2 (17:35→18:37)
--- NOTE | 2020-03-09 17:43 | ED.GENADULT ---
HPI - General Adult General Chief complaint: Recheck/Abnormal Lab/Rx Stated complaint: low blood count Time Seen by Provider: 03/09/20 17:25 Source: patient, old records reviewed and other Mode of arrival: ambulatory Limitations: no limitations History of Present Illness HPI narrative: 68-year-old female Complains of weakness and fatigue and poor appetite for at least a month Slightly over a month ago she had a GI bleed the source of which was never confirmed It sounds like she has not been super compulsive about keeping her scheduled follow-up appointments since that time She was in her doctor's office today with these complaints he thought she looked very pale their measured blood pressure was low and he was concerned for further GI blood loss and referred her over to the ER Interestingly in light of today's lab results, it appears that about 4 months ago she had a blood draw indicating moderate hyponatremia, but unclear what further work-up was pursued and it was normalized on subsequent draws She is also recently had normal thyroid function tests Onset (ago): week(s) Severity: moderate Associated symptoms: loss of appetite and malaise Related Data Home Medications Medication Instructions Recorded Confirmed albuterol sulfate 90 mcg/actuation 1 puff INHALATION Q4H PRN 06/22/19 03/09/20 aerosol inhaler bupropion HCl 150 mg tablet,12 hr 150 mg PO QAM 06/22/19 03/09/20 sustained-release fluticasone propionate 50 1 spray NASAL DAILY 06/22/19 03/09/20 mcg/actuation nasal spray,suspension folic acid 1 mg tablet 1 mg PO DAILY 06/22/19 03/09/20 mecobalamin (vitamin B12) 1,000 1,000 mcg SUBLINGUAL DAILY 06/22/19 03/09/20 mcg disintegrating tablet,sublingual multivitamin 1 tablet PO DAILY 06/22/19 03/09/20 ketoconazole 2 % shampoo 1 applic TOPICAL 2XW 10/21/19 03/09/20 pantoprazole 40 mg tablet,delayed 40 mg PO DAILY tablet 10/21/19 03/09/20 release vortioxetine 20 mg tablet 20 mg PO DAILY 10/21/19 03/09/20 Cetaphil 1 applic TOPICAL BID 01/27/20 03/09/20 Rexulti 1 mg PO DAILY 01/27/20 03/09/20 betamethasone dipropionate 1 applic TOPICAL BID 01/27/20 03/09/20 duloxetine 30 mg PO DAILY 01/27/20 03/09/20 ibuprofen 200 mg PO Q6-8H PRN 01/27/20 03/09/20 lorazepam 1 mg PO HS 01/27/20 03/09/20 montelukast 10 mg PO HS 01/27/20 03/09/20 oxycodone-acetaminophen 5 mg-325 1 tablet PO Q6H PRN 01/27/20 03/09/20 mg tablet pimecrolimus 1 % topical cream 1 applic TOPICAL BID 01/27/20 03/09/20 triamcinolone acetonide 1 applic TOPICAL BID 01/27/20 03/09/20 vitamin B complex [B-Complex] 1 tablet PO DAILY 01/27/20 03/09/20 Allergies Allergy/AdvReac Type Severity Reaction Status Date / Time tetanus immune globulin Allergy Severe FEVER, FLU Verified 03/09/20 15:22 SX. cefaclor Allergy Unknown Hives Verified 03/09/20 15:22 tetanus toxoid, adsorbed Allergy Unknown Unknown Verified 03/09/20 15:22 Tetanus Vaccines and Toxoid Allergy Unknown Unknown Verified 03/09/20 15:22 adhesive tape AdvReac Unknown Other Verified 03/09/20 15:22 Review of Systems Review of Systems: All systems reviewed & are unremarkable except as noted in HPI and below Constitutional: Constitutional: Reports fatigue and Reports weakness Eyes: Eyes: Reports no additional eye complaints Respiratory: Respiratory: Denies cough and Denies dyspnea Gastrointestinal: Gastrointestinal: Denies diarrhea and Denies vomiting Comments: No melena Musculoskeletal: Musculoskeletal: Reports myalgias Neurologic: Reports weakness Psychiatric: Psychiatric: Reports depression Hematologic/Lymphatic: Hematologic/Lymphatic: Denies easy bleeding [facility] Past Medical History Medical History (Updated 03/09/20 @ 18:59 by Adiel Adams MD) Anorexia Anxiety with depression Basal cell carcinoma of nose Benign essential hypertension Benign fundic gland polyps of stomach (~05/2017) Chronic sinusitis Diverticulosis Eczema Fatigue Gastroesophageal reflux disease
[2020-03-09 20:08] LABS: Hematocrit 33.1 % (37.0-47.0); Hemoglobin 10.7 g/dL (12.0-15.0)
[2020-03-09 20:49] VITALS: BP 138/96; PULSE 98; RESP 20; TEMP 36.6; O2SAT 99
== END 2020-03-09 20:50 | disposition home or self-care (01) ==
PROVIDERS: Emergency Medicine Emergency Medical Services; Emergency Provider Emergency Medicine; PCP Internal Medicine
DX: E87.1 Hypo-osmolality and hyponatremia (principal); R63.0 Anorexia; F32.9 Major depressive disorder, single episode, unspecified; F41.8 Other specified anxiety disorders; Z85.828 Personal history of other malignant neoplasm of skin; I10 Essential (primary) hypertension; K21.9 Gastro-esophageal reflux disease without esophagitis; D50.9 Iron deficiency anemia, unspecified; E53.8 Deficiency of other specified B group vitamins; E55.9 Vitamin D deficiency, unspecified; Z98.84 Bariatric surgery status; Z98.1 Arthrodesis status
CPT/HCPCS: 36415; 51701; 80053; 81001; 83605; 83690; 85014; 85018; 85025; 85610; 85730; 86140; 86850; 86900; 86901; 87040; 93005; 96360; 96361; 99283; J7030

== ENCOUNTER 2020-03-22 14:04 | Outpatient (CLI) | payer MEDICARE, OTHER, SELFPAY ==
--- NOTE | ~2020-03-22 | CT_ITS ---
EXAMINATION: CT abdomen pelvis w con INDICATION: Generalized abdominal pain and nausea TECHNIQUE: Computed tomographic images of the abdomen and pelvis were obtained after the administrati on of 100 cc of Omnipaque 350 intravenous contrast. The dose-length product (DLP) was 851.86 mGy-cm. Automated exposure control and iterative reconstruction technique were employed. COMPARISON: 05/15/2017 FINDINGS: Minimal dependent atelectasis is present in the lung bases. The heart size is normal. The l iver is diffusely low in attenuation when compared with the spleen, consistent with hepatic steatosis . Surgical changes in the stomach are consistent with gastric bypass. There is a small sliding hiatal hernia. The gallbladder is surgically absent. There is mild enlargement of the common bile duct and central intrahepatic ducts which is likely due to post cholecystectomy state. Punctate calcifications in an otherwise normal spleen likely represent healed granulomatous disease. The pancreas and adrena l glands are normal. The kidneys are unremarkable. No pathologically enlarged abdominal or pelvic lym ph nodes are identified. There is no free intraperitoneal gas or evidence of bowel obstruction. Colon ic diverticulosis is present without evidence of diverticulitis. There are changes of hysterectomy an d bilateral oophorectomy. 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 A subacute T12 burst fracture is again noted. There are changes of anterior and posterior fusion at L4-5. IMPRESSION: 1. No definite correlate for abdominal pain and nausea. 2. 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 3. Diffuse hepatic steatosis. Reviewed, dictated and finalized at location A.
--- NOTE | ~2020-03-22 | XR_ITS ---
EXAMINATION: XR chest 2V DATE: 03/22/2020 14:53 INDICATION: Shortness of breath TECHNIQUE: PA and lateral views of the chest are obtained. COMPARISON: 10/21/2019 FINDINGS: The lungs are free of acute opacities. Calcified pulmonary nodules are consistent with old granulomatous disease. There is no pleural effusion or pneumothorax. The cardiomediastinal silhouett e is normal. There is thoracolumbar dextroscoliosis. IMPRESSION: 1. No acute cardiopulmonary abnormality. Reviewed, dictated and finalized at location A.
[2020-03-22 15:06] LABS: Alanine Aminotransferase 63 U/L (4-35); Albumin Level 3.7 g/dL (3.5-5.1); Alkaline Phosphatase 120 U/L (38-126); Anion Gap 15.7 mmol/L (7-16); Aspartate Amino Transferase 54 U/L (14-36); Bilirubin,Total 0.7 mg/dL (0.2-1.3); Blood Urea Nitrogen 18 mg/dL (7-17); Calcium 8.7 mg/dL (8.4-10.2); Carbon Dioxide 22 mmol/L (22-30); Chloride 93 mmol/L (98-107); Estimated Glomerular Filt Rate > 60; Glucose 116 mg/dL (65-105); Potassium 4.7 mmol/L (3.4-5.0); Sodium 126 mmol/L (137-145)
[2020-03-22 15:09] LABS: Estimated Glomerular Filt Rate > 60
== END 2020-03-22 14:05 | disposition home or self-care (01) ==
PROVIDERS: PCP Internal Medicine; Visit Provider Internal Medicine
DX: I10 Essential (primary) hypertension (principal); Z79.899 Other long term (current) drug therapy; R10.84 Generalized abdominal pain; K76.0 Fatty (change of) liver, not elsewhere classified
CPT/HCPCS: 36415; 71046; 74177; 80048; 80076; Q9967

== ENCOUNTER 2020-03-28 13:41 | Outpatient (CLI) | payer MEDICARE, OTHER, SELFPAY ==
[2020-03-28 14:37] LABS: Anion Gap 13 mmol/L (8-16); Blood Urea Nitrogen 18 mg/dL (7-17); Calcium 8.8 mg/dL (8.4-10.2); Carbon Dioxide 21 mmol/L (22-30); Chloride 96 mmol/L (98-107); Estimated Glomerular Filt Rate > 60; Glucose 110 mg/dL (65-105); Potassium 3.4 mmol/L (3.4-5.0); Sodium 130 mmol/L (137-145)
== END 2020-03-28 13:42 | disposition home or self-care (01) ==
PROVIDERS: PCP Internal Medicine; Visit Provider Internal Medicine
DX: I10 Essential (primary) hypertension (principal)
CPT/HCPCS: 36415; 80048

== ENCOUNTER 2020-05-12 12:03 | Emergency (ER) | payer MEDICARE, OTHER, SELFPAY ==
--- NOTE | ~2020-05-12 | XR_ITS ---
XR lumbar spine 2-3V 05/12/2020 13:10 Indication: Low back pain after fall Procedure: 3 views lumbar spine Comparison: CT dated 03/22/2020 Findings: There is a chronic burst fracture of T12 with vertebroplasty changes. There is surgical nancy nge consistent with fusion at L4-5 with grade 1 spondylolisthesis at this level. Hardware appears to be intact. Osteopenia. There is dextrocurvature of the thoracolumbar spine. There is mild age-indeter minate superior endplate compression deformity of T11. There is disc narrowing at L5-S1. Impression: 1: Mild age-indeterminate superior endplate compression deformity of T11. 2: Chronic burst fracture T12 with vertebroplasty changes. Reviewed, dictated and finalized at location A. Impression: 1: Mild age-indeterminate superior endplate compression deformity of T11. 2: Chronic burst fracture T12 with vertebroplasty changes.
--- NOTE | ~2020-05-12 | XR_ITS ---
EXAMINATION: XR hip LT 2V w AP pelvis DATE: 05/12/2020 13:10 INDICATION: Left hip pain. TECHNIQUE: An anteroposterior view of the pelvis and 2 views of left hip on 3 radiographs were obtain ed. COMPARISON: None. FINDINGS: Bone alignment is normal. No fracture. There are changes of posterior fusion procedure at L 5-S1 with pedicle screws. There is mild osteoarthritis of the hips. Surgical clips overlie the pelvis . IMPRESSION: 1. Mild osteoarthritis of the hips. Reviewed, dictated and finalized at location A.
[2020-05-12 12:05] VITALS: BP 128/94; PULSE 118; RESP 18; TEMP 35.9; O2SAT 100
[2020-05-12 14:09] VITALS: BP 138/90; PULSE 106; RESP 18; O2SAT 100
--- NOTE | 2020-05-12 14:47 | ED.FALL ---
HPI - Fall General Chief Complaint: Fall <Ryan Nina PA-C - Last Filed: 05/12/20 15:06> Stated Complaint: fall, back pain <Ryan Nina PA-C - Last Filed: 05/12/20 15:06> Time Seen by Provider: 05/12/20 14:10 <Ryan Nina PA-C - Last Filed: 05/12/20 15:06> History of Present Illness HPI Narrative: Patient presents with CC of diffuse low back pain and lateral left hip pain after slipping on her new laminate floors while wearing slick socks on Friday. She reports she falls frequently due to chronic intermittent dizziness, muscle weakness, and neuropathy which is being evaluated by her PCP Ernie. Patient reports 2 years ago she had a lumbar fusion as well as caging. Patient states 2 weeks ago she had a glue applied to a thoracic disc in order to repair it. Patient denies any thoracic pain at this time. Patient reports diffuse lower lumbar discomfort that is not painful with palpation only with range of motion. Patient also reports pain to the lateral aspect of her left hip. She is able to abduct her left hip and ambulate with a walker. Patient denies loss of bowel or bladder function or changes in sensation or strength to her lower extremities. Patient reports her urination and bowel movements have been normal for her. Patient denies head impact, loss of consciousness or changes in vision or hearing. Patient reports that her procedure 2 weeks ago was at [facility] in [place] but states that she does not recall the surgeon's name. <Ryan iNna PA-C - Last Filed: 05/12/20 15:06> Related Data Home Medications: Home Medications Medication Instructions Recorded Confirmed albuterol sulfate 90 mcg/actuation 1 puff INHALATION Q4H PRN 06/22/19 04/20/20 aerosol inhaler fluticasone propionate 50 1 spray NASAL DAILY 06/22/19 04/20/20 mcg/actuation nasal spray,suspension folic acid 1 mg tablet 1 mg PO DAILY 06/22/19 04/20/20 mecobalamin (vitamin B12) 1,000 1,000 mcg SUBLINGUAL DAILY 06/22/19 04/20/20 mcg disintegrating tablet,sublingual multivitamin 1 tablet PO DAILY 06/22/19 04/20/20 Cetaphil 1 applic TOPICAL BID 01/27/20 04/20/20 ibuprofen 200 mg PO Q6-8H PRN 01/27/20 04/20/20 vitamin B complex [B-Complex] 1 tablet PO DAILY 01/27/20 04/20/20 mineral oil 10 ml PO DAILY ml 04/14/20 04/20/20 polyethylene glycol 3350 17 gram 17 gm PO DAILY 04/14/20 04/20/20 oral powder packet alprazolam See Rx Instructions .ROUTE .COMPLEX 05/12/20 05/12/20 <Ryan Nina PA-C - Last Filed: 05/12/20 15:06> Allergies/Adverse Reactions: Allergies Allergy/AdvReac Type Severity Reaction Status Date / Time tetanus immune globulin Allergy Severe FEVER, FLU Verified 05/12/20 12:11 SX. cefaclor Allergy Unknown Hives Verified 05/12/20 12:11 tetanus toxoid, adsorbed Allergy Unknown Unknown Verified 05/12/20 12:11 Tetanus Vaccines and Toxoid Allergy Unknown Unknown Verified 05/12/20 12:11 adhesive tape AdvReac Unknown Other Verified 05/12/20 12:11 <Ryan Nina PA-C - Last Filed: 05/12/20 15:06> Review of Systems Review of Systems: Narrative: CONSTITUTIONAL: Denies fever, chills, or sweats. EYES: Denies visual changes, redness, or discharge. ENT: Denies rhinorrhea, congestion, sore throat, or otalgia. CARDIOVASCULAR: Denies chest pain, palpitations, or edema. RESPIRATORY: Denies cough or dyspnea. GASTROINTESTINAL: Denies abdominal pain, nausea, vomiting, or diarrhea. GENITOURINARY: Denies dysuria or hematuria. SKIN: Denies rash or itching. MUSCULOSKELETAL: Reports back pain and left hip Denies myalgia, or joint pain NEUROLOGIC: Denies headache, numbness, dizziness, or weakness. PSYCHIATRIC: Denies anxiety or depression. <Ryan Nina PA-C - Last Filed: 05/12/20 15:06> [facility] Past Medical History Medical History: Medical History (Updated 05/13/20 @ 00:01 by Background Daemon) Abdominal pain Anorexia Anxiety with depression Basal cell carcinoma of nose Benign ess
[2020-05-12 15:13] VITALS: BP 138/93; PULSE 100; RESP 16; O2SAT 99
== END 2020-05-12 15:27 | disposition home or self-care (01) ==
PROVIDERS: Emergency Provider Emergency Medicine; PCP Internal Medicine
DX: S39.92XA Unspecified injury of lower back, initial encounter (principal); M25.552 Pain in left hip; F41.8 Other specified anxiety disorders; Z85.828 Personal history of other malignant neoplasm of skin; I10 Essential (primary) hypertension; K21.9 Gastro-esophageal reflux disease without esophagitis; J45.909 Unspecified asthma, uncomplicated; G25.81 Restless legs syndrome; E53.8 Deficiency of other specified B group vitamins; E55.9 Vitamin D deficiency, unspecified; Z98.84 Bariatric surgery status; Z98.1 Arthrodesis status; M16.0 Bilateral primary osteoarthritis of hip; W01.0XXA Fall on same level from slipping, tripping and stumbling without subsequent striking against object, initial encounter
CPT/HCPCS: 72100; 73502; 99284

== ENCOUNTER 2020-05-29 15:23 | Outpatient (CLI) | payer MEDICARE, OTHER, SELFPAY ==
[2020-05-29 15:52] LABS: Basophils Absolute Auto 0.1 K/mm3 (0.0-0.1); Basophils Percent Auto 0.5 % (0.2-1.2); Eosinophils Percent Auto 0.1 % (0-4.4); Hematocrit 38.1 % (37.0-47.0); Hemoglobin 11.9 g/dL (12.0-15.0); Immature Granulocyte Absolute 0.08 K/mm3 (0.00-0.031); Immature Granulocyte Percent A 0.8 % (0-0.5); Lymphocytes Absolute Auto 0.75 K/mm3 (0.9-3.2); Lymphocytes Percent Auto 7.7 % (18.3-44.2); Mean Corpuscular HGB Conc 31.2 g/dl (32-36); Mean Corpuscular Hemoglobin 26.6 pg (26-34); Mean Platelet Volume 9.7 fl (7.4-10.4); Monocytes Absolute Auto 0.6 K/mm3 (0.1-0.6); Monocytes Percent Auto 6.2 % (2.6-8.5); Neutrophils Absolute Auto 8.2 K/mm3 (1.3-6.7); Neutrophils Percent Auto 84.7 % (45.5-73.1); Platelet Count Result 543 k/mm3 (150-375); Red Blood Count 4.48 M/mm3 (4.2-5.4); Red Cell Distribution Width 16.1 % (11.5-14.5); White Blood Count 9.7 K/mm3 (4.5-10.0)
[2020-05-29 16:06] LABS: Alanine Aminotransferase 19 U/L (4-35); Albumin Level 4.7 g/dL (3.5-5.1); Alkaline Phosphatase 175 U/L (38-126); Anion Gap 15 mmol/L (8-16); Aspartate Amino Transferase 25 U/L (14-36); Bilirubin,Total 0.7 mg/dL (0.2-1.3); Blood Urea Nitrogen 15 mg/dL (7-17); Calcium 10.2 mg/dL (8.4-10.2); Carbon Dioxide 20 mmol/L (22-30); Chloride 90 mmol/L (98-107); Estimated Glomerular Filt Rate > 60; Glucose 108 mg/dL (65-105); Potassium 5.1 mmol/L (3.4-5.0); Sodium 125 mmol/L (137-145)
[2020-05-29 16:13] LABS: Prealbumin 22.7 mg/dL (17.6-36.0)
[2020-05-29 16:26] LABS: Iron 94 ug/dL (37-170)
[2020-05-29 16:35] LABS: Percent Iron Saturation 21 % (20-50)
[2020-05-29 17:13] LABS: Folic Acid 3.6 ng/mL (2.76->20)
[2020-06-02 11:49] LABS: Vitamin B6 <2.0 ng/mL (2.1-21.7)
[2020-06-03 11:21] LABS: Vitamin B1 <6 nmol/L (8-30)
[2020-06-03 17:09] LABS: Vitamin B2 <5.0 nmol/L (6.2-39.0)
== END 2020-05-29 15:24 | disposition home or self-care (01) ==
LOC: ANHLAB 15:26
PROVIDERS: PCP Internal Medicine; Visit Provider Internal Medicine
DX: R53.1 Weakness (principal); Z98.84 Bariatric surgery status; Z79.899 Other long term (current) drug therapy; D64.9 Anemia, unspecified; I10 Essential (primary) hypertension; E53.8 Deficiency of other specified B group vitamins
CPT/HCPCS: 36415; 80053; 82607; 82728; 82746; 83540; 83550; 84134; 84207; 84252; 84425; 85025

== ENCOUNTER 2020-06-01 17:06 | Inpatient (IN) | payer MEDICARE, OTHER, SELFPAY ==
[2020-06-01] VITALS (7 sets, daily range): BP systolic 132–168; BP diastolic 72–117; PULSE 80–134; RESP 18–20; TEMP 36.2–36.9; O2SAT 96–100; BMI 22.5
--- NOTE | ~2020-06-01 | MR_ITS ---
EXAMINATION: MR lumbar spine wo/w con EXAM DATE: 06/05/2020 15:23 INDICATION: lower extremity weakness TECHNIQUE: Multi-sequential, multiplanar MR images of the lumbar spine were obtained without contrast . Sagittal T1, T2, T2 fat saturation images. Axial T2 weighted images. Axial T1 weighted sequence. Patient was then injected with 13 mL Multihance intravenous contrast and reimaged. Postcontrast axi al and sagittal T1-weighted fat saturation sequences were obtained. Comparison is made to prior exami nation from 07/22/2016. Correlation was made with lumbar x-ray from 05/12/2020. FINDINGS: There is chronic a moderate burst fracture of the T12 vertebral body which has been treated with methylmethacrylate. There is subacute mild to moderate compression fracture of the T11 vertebra l body, with bone marrow edema. These findings were present on a lumbar x-ray last month, but are new compared to 2016 MRI examination. There is posterior and interbody fusion at the L4-5 level, grade 1 anterolisthesis. There is a rudimentary L5-S1 disc. Mild lumbar disc disease. L4-5 laminectomies. Th e conus medullaris terminates at the T12-L1 level and has normal signal intensity and morphology. Postcontrast sagittal sequence significantly limited from motion. There is enhancement in the T11 and T12 vertebral bodies, which could be due to the edema from recently compressed, treated respectively . Paraspinal soft tissue is unremarkable. Level by level evaluation: T11-12: There is a mild diffuse disc bulge. Facet arthropathy: Mild. Neural foraminal stenosis: No stenosis. Central canal stenosis: Mild, from T12 superior endplate retropulsion. T12-L1: There is a mild diffuse disc bulge. Facet arthropathy: Mild. Neural foraminal stenosis: No stenosis. Central canal stenosis: No stenosis. L1-L2: There is a mild diffuse disc bulge. Facet arthropathy: Mild. Neural foraminal stenosis: No stenosis. Central canal stenosis: No stenosis. L2-L3: There is a mild diffuse disc bulge. Facet arthropathy: Mild to moderate. Neural foraminal stenosis: No stenosis. Central canal stenosis: No stenosis. L3-L4: There is a mild diffuse disc bulge. Facet arthropathy: Mild. Neural foraminal stenosis: Mild bilateral. Central canal stenosis: No stenosis. L4-L5: This level is fused. Facet arthropathy: Poorly visualized. Neural foraminal stenosis: Probably moderate right, mild left. Central canal stenosis: Posterior decompression. L5-S1: There is a congenitally narrowed disc space. Facet arthropathy: Mild bilateral. Neural foraminal stenosis: No stenosis. Central canal stenosis: No stenosis. IMPRESSION: 1. Edema, enhancement in the T11 compression and T12 treated burst fractures. 2. L4-5 grade 1 anterolisthesis, moderate right neural foraminal stenosis. Reviewed, dictated and finalized at location A.
--- NOTE | ~2020-06-01 | XR_ITS ---
EXAMINATION: XR chest 1V portable DATE: 06/02/2020 13:15 INDICATION: Hyponatremia. TECHNIQUE: A single frontal view of the chest was obtained. COMPARISON: Chest 2 views 03/22/2020, CT abdomen and pelvis 09/22/2019 FINDINGS: The chest demonstrates clear lungs without pneumonia, pleural effusion, or pneumothorax. Th e heart size is normal. There are changes of vertebroplasty at T12. IMPRESSION: 1. No acute cardiopulmonary disease. Reviewed, dictated and finalized at location A.
--- NOTE | ~2020-06-01 | CT_ITS ---
EXAMINATION: CT brain wo con EXAM DATE: 06/01/2020 20:56 INDICATION: Frequent falls. Weakness. TECHNIQUE: Spiral CT of the head was performed without contrast. Axial, coronal and sagittal images were reviewed. The dose-length product (DLP) for this examination was 1135.00 mGy-cm. The exposure was tailored according to patient size, and iterative reconstruction (ASIR) was used as additional do se reduction technique. There is no prior study for comparison. FINDINGS: There is no acute intraparenchymal hemorrhage. No evidence of intraparenchymal brain mass lesion. No evidence of acute infarction. Please note that initial head CT has limited sensitivity f or small or acute infarctions. There is mild to moderate periventricular and subcortical hypodensity, nonspecific but probably related to small vessel ischemic disease. There is moderate prominence of the sulci and ventricles related to cerebral atrophy. There is intracranial carotid arterioscleros is. There are no extra-axial collections. There is no mass effect or midline shift. The orbits are unremarkable. Soft tissue is unremarkable. Bilateral maxillary sinus window procedures. The left m axillary sinus is nearly opacified. Mastoid air cells are well aerated. IMPRESSION: 1. No acute intracranial findings. 2. Chronic age related findings. 3. Nearly opacified left maxillary sinus. Reviewed, dictated and finalized at location A.
--- NOTE | ~2020-06-01 | MR_ITS ---
EXAMINATION: MR cervical spine wo/w con DATE: 06/05/2020 15:22 INDICATION: Lower extremity weakness. TECHNIQUE: Magnetic resonance imaging (MRI) of the cervical spine was performed without and with 13 m L MultiHance intravenous contrast. Sequences included sagittal and axial T2-weighted FSE, sagittal ST IR FSE, and sagittal and axial T1-weighted FSE. Postcontrast sequences included sagittal and axial T1 -weighted FS FSE. COMPARISON: Cervical spine MRI 09/23/2011 FINDINGS: There is levoscoliosis of thoracic spine. Vertebral body heights are normal. There is mildl y decreased disc height at C2-C3. The spinal cord signal intensity is normal. The following disc leve ls are specifically discussed: C2-C3: The disc does not extend beyond the endplate margin. There is no uncovertebral joint osteoarth ritis. There is ankylosis of the facet joints without hypertrophy. There is no neural foraminal steno sis. There is no central canal stenosis. C3-C4: There is a central protrusion. There is mild left uncovertebral joint osteoarthritis. There is mild right and severe left facet joint osteoarthritis. There is mild left neural foraminal stenosis. There is no central canal stenosis. C4-C5: The disc does not extend beyond the endplate margin. There is no uncovertebral joint osteoarth ritis. There is mild bilateral facet joint osteoarthritis. There is no neural foraminal stenosis. The re is no central canal stenosis. C5-C6: There is a central protrusion. There is mild bilateral uncovertebral joint osteoarthritis. The re is mild right and moderate left facet joint osteoarthritis. There is mild left neural foraminal st enosis. There is mild central canal stenosis. C6-C7: There is a central protrusion. There is no uncovertebral joint osteoarthritis. There is no fac et joint osteoarthritis. There is no neural foraminal stenosis. There is no central canal stenosis. C7-T1: The disc does not extend beyond the endplate margin. There is no uncovertebral joint osteoarth ritis. There is mild bilateral facet joint osteoarthritis. There is no neural foraminal stenosis. The re is no central canal stenosis. IMPRESSION: 1. Mild cervical spondylosis, stable from 09/23/2011. Reviewed, dictated and finalized at location A.
--- NOTE | ~2020-06-01 | MR_ITS ---
EXAMINATION: MR brain/brain stem wo con EXAM DATE: 06/02/2020 18:04 INDICATION: Unsteady gait and bilateral lower extremity weakness. TECHNIQUE: Magnetic resonance imaging (MRI) of the brain/brain stem obtained without contrast. Sagitt al T1, axial diffusion, gradient echo (T2*), T1, T2, FLAIR sequences obtained. Comparison is made to prior examination from 07/21/2007. FINDINGS: There are no areas of restricted diffusion to suggest acute infarction. There is no acute hemorrhage seen on the T2*, a hemosiderin sensitive sequence. No intraparenchymal brain mass lesion. There is mild to moderate periventricular and subcortical T2/FLAIR signal hyperintensity, nonspecifi c but probably related to small vessel ischemic disease (microangiopathy). There is mild prominence of the sulci and ventricles related to cerebral atrophy. There are no extra-axial collections. Fl ow voids are seen in the cerebral arteries on the T2-weighted sequences consistent with their expecte d patency. The orbits are unremarkable. Soft tissue is unremarkable. Nearly Opacified left maxilla ry sinus. IMPRESSION: 1. No acute intracranial findings. 2. Chronic age related findings. Reviewed, dictated and finalized at location A.
--- NOTE | 2020-06-01 17:16 | ECG_ITS ---
Measurements Intervals [place] Rate: 110 P: 34 [place]: 143 QRS: 92 QRSD: 88 T: -1 QT: 331 QTc: 450 Interpretive Statements SINUS TACHYCARDIA RIGHT AXIS DEVIATION BORDERLINE ST-T WAVE ABNORMALITY- INFERIOR LEADS BASELINE ARTIFACT- I, II, AVR, AVL, AVF, V3, V6 ABNORMAL ECG Electronically Signed On 06-01-2020 19:33:49 CDT by Marciano Dominguez D.O.
--- NOTE | 2020-06-01 17:17 | ED.GENADULT ---
HPI - General Adult General Chief complaint: Weakness Stated complaint: WEAKNESS Time Seen by Provider: 06/01/20 17:13 Source: patient and family () Mode of arrival: wheelchair Limitations: no limitations History of Present Illness HPI narrative: Patient is a 70-year-old female who presents reporting generalized weakness. Patient sees Dr. Klein, who sent patient in because of low sodium per . Patient denies pain, denies nausea, vomiting or diarrhea. She reports weakness in bilateral legs and is having a hard time getting around because of weakness. She denies pain or other complaints. complaint: Weakness Related Data Home Medications Medication Instructions Recorded Confirmed albuterol sulfate 90 mcg/actuation 1 puff INHALATION Q4H PRN 06/22/19 05/31/20 aerosol inhaler fluticasone propionate 50 1 spray NASAL DAILY 06/22/19 05/31/20 mcg/actuation nasal spray,suspension mecobalamin (vitamin B12) 1,000 1,000 mcg SUBLINGUAL DAILY 06/22/19 05/31/20 mcg disintegrating tablet,sublingual multivitamin 1 tablet PO DAILY 06/22/19 05/31/20 ibuprofen 200 mg PO Q6-8H PRN 01/27/20 05/31/20 vitamin B complex [B-Complex] 1 tablet PO DAILY 01/27/20 05/31/20 polyethylene glycol 3350 17 gram 17 gm PO DAILY 04/14/20 05/31/20 oral powder packet alprazolam See Rx Instructions .ROUTE .COMPLEX 05/12/20 05/31/20 Allergies Allergy/AdvReac Type Severity Reaction Status Date / Time tetanus immune globulin Allergy Severe FEVER, FLU Verified 05/30/20 15:12 SX. cefaclor Allergy Unknown Hives Verified 05/30/20 15:12 tetanus toxoid, adsorbed Allergy Unknown Unknown Verified 05/30/20 15:12 Tetanus Vaccines and Toxoid Allergy Unknown Unknown Verified 05/30/20 15:12 adhesive tape AdvReac Unknown Other Verified 05/30/20 15:12 Review of Systems Review of Systems: Narrative: CONSTITUTIONAL: Denies fever, chills, or sweats. EYES: Denies visual changes, redness, or discharge. ENT: Denies rhinorrhea, congestion, sore throat, or otalgia. CARDIOVASCULAR: Denies chest pain, palpitations, or edema. RESPIRATORY: Denies cough or dyspnea. GASTROINTESTINAL: Denies abdominal pain, nausea, vomiting, or diarrhea. GENITOURINARY: Denies dysuria or hematuria. SKIN: Denies rash or itching. MUSCULOSKELETAL: Denies back pain, joint pain, or myalgia. NEUROLOGIC: Denies headache, numbness, dizziness, or weakness. PSYCHIATRIC: Denies anxiety or depression. [facility] Past Medical History Medical History Abdominal pain Anorexia Anxiety with depression Basal cell carcinoma of nose Benign essential hypertension Benign fundic gland polyps of stomach (~05/2017) BMI 25.0-25.9,adult Burst fracture of T12 vertebra Chronic nausea Chronic sinusitis Debility Diverticulosis Eczema Elevated homocysteine Elevated LFTs Fatigue Follow up Gastroesophageal reflux disease History of hypertension Hyperplastic polyp of sigmoid colon Hyponatremia Iron deficiency anemia Mild reactive airways disease Physical debility Restless leg syndrome Sinusitis SOB (shortness of breath) Unsteady gait Vitamin B12 deficiency Vitamin D deficiency Weakness Weight loss Surgical History Surgical History History of appendectomy History of cholecystectomy History of exploratory laparotomy (~10/2003) Removal of anterior abdominal wall mass (benign fibroid), adhesiolysis, and bilateral salpingo-oophorectomy with bladder repair. History of gastric bypass History of lumbar fusion History of vaginal hysterectomy Status post functional endoscopic sinus surgery And bilateral maxillary antrostomy. Status post surgical removal of malignant neoplasm of skin Excision basal cell carcinoma from the bridge of the nose. Family History Family History Sibling Family history of lung cancer Patient's sister is de
[2020-06-01 17:50] LABS: Basophils Percent Auto 0.4 % (0.2-1.2); Eosinophils Percent Auto 0.1 % (0-4.4); Hematocrit 36.8 % (37.0-47.0); Hemoglobin 11.5 g/dL (12.0-15.0); Immature Granulocyte Absolute 0.08 K/mm3 (0.00-0.031); Immature Granulocyte Percent A 0.9 % (0-0.5); Lymphocytes Absolute Auto 0.88 K/mm3 (0.9-3.2); Lymphocytes Percent Auto 9.8 % (18.3-44.2); Mean Corpuscular HGB Conc 31.3 g/dl (32-36); Mean Corpuscular Volume 86.4 fl (80-100); Mean Platelet Volume 9.7 fl (7.4-10.4); Monocytes Absolute Auto 0.7 K/mm3 (0.1-0.6); Monocytes Percent Auto 7.5 % (2.6-8.5); Neutrophils Absolute Auto 7.3 K/mm3 (1.3-6.7); Neutrophils Percent Auto 81.3 % (45.5-73.1); Platelet Count Result 464 k/mm3 (150-375); Red Blood Count 4.26 M/mm3 (4.2-5.4); Red Cell Distribution Width 16.5 % (11.5-14.5)
[2020-06-01 18:02] LABS: Alanine Aminotransferase 18 U/L (4-35); Albumin Level 4.5 g/dL (3.5-5.1); Alkaline Phosphatase 163 U/L (38-126); Anion Gap 17 mmol/L (8-16); Aspartate Amino Transferase 23 U/L (14-36); Bilirubin,Total 0.5 mg/dL (0.2-1.3); Blood Urea Nitrogen 21 mg/dL (7-17); Carbon Dioxide 20 mmol/L (22-30); Chloride 96 mmol/L (98-107); Estimated CRCL calculation 73 ml/min; Estimated Glomerular Filt Rate > 60; Glucose 111 mg/dL (65-105); Potassium 4.4 mmol/L (3.4-5.0); Sodium 133 mmol/L (137-145)
[2020-06-01] MEDS: SODIUM CHLORIDE 0.9% IV 1,000 ML 999 ML IV CONT (19:50)
[2020-06-01 19:58] LABS: Add Urine Microscopic? YES; Appearance Urine Clear (Clear); Bacteria Urine Trace /hpf; Bilirubin Urine Negative (Negative); Blood Urine Negative (Negative); Color Urine Yellow (Yellow); Glucose Urine UA Negative (Negative); Ketones Urine 1+ mg/dL (Negative); Leukocyte Esterase Ur Negative LEU/UL (Negative); Mucus Urine Heavy /lpf; Nitrate Urine Negative (Negative); Protein Urine Negative (Negative); RBC Urine 0-2 /hpf (0-2); Specific Grav Ur 1.024 (1.001-1.035); Squamous Epithelial Cell Urine Occasional /hpf (Few); WBC Urine 0-3 /hpf
--- NOTE | 2020-06-01 22:50 | ADMGEN ---
This patient, Juliet Weinstein, was admitted to [facility] Surg Room 302-01. Patient/family oriented to hospital policies and general routines including ID bracelet, bed and alarms, visiting hours, pain management, procedures, bathroom and other care routines, personal items, smoking policy, room service/diet, and visiting hours. Information on how to activate the Rapid Response Team has been discussed. Patient/Family are encouraged to report perceived risks to care and to ask questions if they do not understand what they are told or what they should do.
[2020-06-02] MEDS: SODIUM CHLORIDE 0.9% IV 1,000 ML 125 ML IV CONT ×3 (00:15→16:57)
[2020-06-02 06:00] VITALS: BP 123/83; PULSE 82; RESP 20; TEMP 36.4; O2SAT 96
--- NOTE | 2020-06-02 07:35 | PM.IMHP ---
H&P: HPI History of Present Illness Date/Time: 06/02/20 07:35 This is a 70 yo female with PMHx significant for Anorexia, Gastric Bypass, HTN, Chronic abdominal pain/nausea, Anxiety and depression, Chronic vertebrae fx, Chronic Hyponatremia, Restless leg syndrome, vit B 12 deficiency, unsteady gait. Patient presented to ED faster she was found to have low levels of sodium by her PCP whom she has seen for the past several weeks for unsteady gait and falls. Patient had a sodium level at 125 no fevers, no rigors, no chills, no sob, no cough, no sputum production no chest pain. She states that she is very weak, no LOC, no syncope, no near syncope. Preliminary work up is essentially non revealing. Chief complaint: weakness Narrative: Juliet Weinstein is a 70 year old female with PMHx significant for Gastric bypass, multiple problems. Sodium level was found to be 125. Review of Systems Review of Systems: Narrative: Feeling very weak, states that can't walk. Constitutional: Comments: no chills, no rigors, no fevers. Eyes: Comments: no visual changes. ENT: Comments: no ear ache, no throat ache, no nasal discharge or congestion. Cardiovascular: Comments: no pnd, no sob, no leg swelling. Respiratory: Comments: no cough, no sputum production, no sob. Gastrointestinal: Comments: nausea, vomiting, abdominal pain. Genitourinary: Comments: urinary retention. Musculoskeletal: Musculoskeletal: Reports abnormal gait and Reports numbness Integumentary/Breasts: Comments: no rashes, no discoloration. Neurologic: Reports numbness and Reports weakness Comments: B/L LE weakness. Hematologic/Lymphatic: Comments: No LAP PMFSH Past Medical History Medical History Abdominal pain Anorexia Anxiety with depression Basal cell carcinoma of nose Benign essential hypertension Benign fundic gland polyps of stomach (~05/2017) BMI 25.0-25.9,adult Burst fracture of T12 vertebra Chronic nausea Chronic sinusitis Debility Diverticulosis Eczema Elevated homocysteine Elevated LFTs Fatigue Follow up Gastroesophageal reflux disease History of hypertension Hyperplastic polyp of sigmoid colon Hyponatremia Iron deficiency anemia Mild reactive airways disease Physical debility Restless leg syndrome Sinusitis SOB (shortness of breath) Unsteady gait Vitamin B12 deficiency Vitamin D deficiency Weakness Weight loss Surgical History Surgical History History of appendectomy History of cholecystectomy History of exploratory laparotomy (~10/2003) Removal of anterior abdominal wall mass (benign fibroid), adhesiolysis, and bilateral salpingo-oophorectomy with bladder repair. History of gastric bypass History of lumbar fusion History of vaginal hysterectomy Status post functional endoscopic sinus surgery And bilateral maxillary antrostomy. Status post surgical removal of malignant neoplasm of skin Excision basal cell carcinoma from the bridge of the nose. Family History Family History (Updated 06/01/20 @ 23:40 by Kaylynn Potter RN) Sibling Family history of lung cancer Patient's sister is Father Family history of malignant melanoma Acute myocardial infarction Family history of throat cancer Family history of congestive heart failure Family history of type 1 diabetes mellitus Mother Family history of lung cancer Family history of congestive heart failure Family history of type 1 diabetes mellitus Other Family history of malignant neoplasm Social History Social History Social History: Surrogate decision maker: Vernon Fletcherien, . Code status: Full code. Smoking status: Never smoker Second hand tobacco smoke exposure: No Alcohol intake: current Drinks per week: 3 Substance use: never Additional living arrangements comments: Lives with spou
[2020-06-02 13:12] LABS: Sodium 130 mmol/L (137-145)
[2020-06-02 14:00] VITALS: BP 110/76; PULSE 94; RESP 16; TEMP 36.6; O2SAT 100
[2020-06-02 14:15] LABS: Creatine Kinase 36 U/L (30-135)
--- NOTE | 2020-06-02 15:04 | PM.CNNEP ---
Assessment and Plan Assessment and plan (1) Hyponatremia: Code(s): E87.1 - Hypo-osmolality and hyponatremia Status: Chronic Assessment and Plan: chronic issue/problems since earlier this year (appears to be have started/noted in October 2019) has fluctuated anywhere from 124 - 135mmol/L etiology of weakness and falls(?) risk factors include narcotic use and reactive airway disease along with suboptimal oral intake; urinary retention playing a role? will check SPEP, UPEP, TSH, cortisol level, serum/urine immunofixation as well as urine electrolytes - if these tests are unrevealing, may need to consider malignancy work-up CXR and head CT is negative sodium appears relatively stable (2) Generalized weakness: Code(s): R53.1 - Weakness Status: Acute Assessment and Plan: related to #1(?) further testing ordered (aldolase, MRI of brain/spine, EMG) given hx of gastric bypass surgery - possible vitamin deficiency(?) Neurology consulted as well (3) Anorexia: Code(s): R63.0 - Anorexia Status: Acute Assessment and Plan: playing a role with #1 follow-up on urine electrolytes on gentle IVFs at this time (4) Anemia: Code(s): D64.9 - Anemia, unspecified Status: Acute Assessment and Plan: check iron studies, B12, and folate follow trend of H/H (5) Benign essential hypertension: Code(s): I10 - Essential (primary) hypertension Status: Chronic Assessment and Plan: BP well controlled continue current medications diuretics on hold due to #1 Will continue to follow. History of Present Illness Reason for Consult Consult date: 06/02/20 Reason for consult: hyponatremia Chief Complaint Chief complaint: weakness History of Present Illness Narrative: The patient is a 70-year-old female with a past medical history as outlined below who presented to [facility] ER with complaints of generalized weakness. For about the last month, she has been having issues with ambulation associated with gait instability with near falls. On the day of admission, her reportedly caught the patient before another fall. She denied any other symptoms with regard to nausea, vomiting, diarrhea, fevers or chills. She does admit to bilateral lower extremity weakness making it difficult to walk. Apparently, she a bit noncompliant with the vitamins she is suppose to take secondary to her gastric bypass surgery and her PCP reports that she does not eat that well in general. Work-up and evaluation in the ER demonstrated the patient to be hemodynamically stable but she refused to stand due to her weakness and hence, orthostatic vitals were not obtained. Routine blood work demonstrated consistent with her hyponatremia as well as mild anemia. IVFs were started and given the severity of her weakness, she was admitted to the hospital for further evaluation. Renal consultation was requested due to her hyponatremia and concern this maybe the etiology of her weakness and falls.Is difficult to assess if her hyponatremia correlates with her weakness as it seems that her weakness was more profound than last month were asked her how low sodium level became an issue in October of 2019. Potential risk factors for her hyponatremia include poor oral intake, narcotic use and possible volume depletion. aside from the generalized weakness, she has no other neurological sequelae from the chronic hyponatremia with regard to altered mental status, confusion, seizure disorder, or forgetfulness. Currently, at the time my visit, she appears to be in no acute distress. Review of Systems Review of Systems: Narrative: As per HPI. [facility] Past Medical History Medical History Abdominal pain Anorexia Anxiety with depression Basal cell carcinoma of nose Benign essential hypertension Benign fundic gland kaylene
--- NOTE | 2020-06-02 16:18 | WPDNEURCNPN ---
Assessment and Plan Assessment and plan (1) Generalized weakness: Code(s): R53.1 - Weakness Status: Acute (2) History of hypertension: Code(s): Z86.79 - Personal history of other diseases of the circulatory system Status: Acute (3) Unsteady gait: Code(s): R26.81 - Unsteadiness on feet Status: Acute (4) Debility: Code(s): R53.81 - Other malaise Status: Acute (5) Elevated homocysteine: Code(s): R79.89 - Other specified abnormal findings of blood chemistry Status: Acute (6) Abdominal pain: Qualifiers: Abdominal location: generalized Qualified Code(s): R10.84 - Generalized abdominal pain Code(s): R10.9 - Unspecified abdominal pain Status: Acute (7) Weight loss: Code(s): R63.4 - Abnormal weight loss Status: Acute (8) Iron deficiency anemia: Qualifiers: Iron deficiency anemia type: unspecified iron deficiency Qualified Code(s): D50.9 - Iron deficiency anemia, unspecified Code(s): D50.9 - Iron deficiency anemia, unspecified Status: Acute (9) Anxiety with depression: Code(s): F41.8 - Other specified anxiety disorders Status: Acute (10) Gastroesophageal reflux disease: Code(s): K21.9 - Gastro-esophageal reflux disease without esophagitis Status: Acute (11) Vitamin B12 deficiency: Code(s): E53.8 - Deficiency of other specified B group vitamins Status: Acute (12) Hx of gastric bypass: Code(s): Z98.84 - Bariatric surgery status Status: Acute Additional Plan if the brain MRI and cervical MRI is negative then the pursue a laguna for neuromuscular disease will be warranted likewise an MRI of the lumbosacral spine may be warranted to see exactly what is going on in her lower back I will be following periodically she does have a clinical evidence of the neuropathy superimposed from multiple radiculopathies from the previous back surgeries and previous history of having had lumbar burst fracture Consult date: 06/02/20 Time Seen: 13:30 HPI: Juliet Weinstein is a 70 year old female who is disoriented and is admitted because of generalized weakness the was present and he mentions that this has been going on for several months particularly the confusional state and generalized weakness which is primarily much more evident in the lower extremities more so than the upper extremities she is status post multiple back surgeries when os specifically she complains of the back discomfort in the back pain and she had had catheterization to remove 1300 cubic centimeters of the urine from or bladder the patient is also status post gastric bypass and has been followed by the primary care physician according to the the patient has had scans of her back done on and nothing daily stand out to be corrected more important thing as I am seeing her is the fact that her mental status is not quite as good as 1 would like to see in a 70-year-old and also the fact that is it FUR DRESSER disease or primary neuromuscular disease affecting lower extremities more so than the upper extremities superimposed on the multiple back surgeries with the absent reflexes on the physical examination in the lower extremities and bladder distension Review of Systems Review of Systems: All systems reviewed & are unremarkable except as noted in HPI and below PMFSH Past Medical History Medical History Abdominal pain Anorexia Anxiety with depression Basal cell carcinoma of nose Benign essential hypertension Benign fundic gland polyps of stomach (~05/2017) BMI 25.0-25.9,adult Burst fracture of T12 vertebra Chronic nausea Chronic sinusitis Debility Diverticulosis Eczema Elevated homocysteine Elevated LFTs Fatigue Follow up Gastroesophageal reflux disease History of hypertension Hyperplastic polyp of sigmoid colon Hyponatremia Iron deficiency anemia Mild
[2020-06-02 16:20] LABS: Creatinine Urine 29.6 mg/dL; Total Protein Urine Random 11 mg/dL
[2020-06-02 16:23] LABS: Sodium Urine Random 71 meq/L
[2020-06-02] MEDS: DOXYCYCLINE HYCLATE 100 MG TABLET PO (16:57)
[2020-06-02] MEDS: PANTOPRAZOLE 40 MG TABLET PO (16:57)
[2020-06-02 22:00] VITALS: BP 119/75; PULSE 84; RESP 16; TEMP 36.3; O2SAT 100
[2020-06-03] MEDS: SODIUM CHLORIDE 0.9% IV 1,000 ML 125 ML IV CONT ×3 (01:54→17:29)
[2020-06-03 06:00] VITALS: BP 147/84; PULSE 78; RESP 18; TEMP 36.2; O2SAT 100
[2020-06-03 06:49] LABS: Albumin Level 3.5 g/dL (3.5-5.1); Anion Gap 12 mmol/L (8-16); Blood Urea Nitrogen 11 mg/dL (7-17); Calcium 8.9 mg/dL (8.4-10.2); Carbon Dioxide 18 mmol/L (22-30); Chloride 104 mmol/L (98-107); Estimated CRCL calculation 86 ml/min; Estimated Glomerular Filt Rate > 60; Glucose 92 mg/dL (65-105); Phosphorus 3.3 mg/dL (2.5-4.5); Potassium 3.5 mmol/L (3.4-5.0); Sodium 134 mmol/L (137-145)
--- NOTE | 2020-06-03 07:43 | PM.IMPN ---
Progress Note: A&P Assessment and Plan (1) Weakness generalized: Code(s): R53.1 - Weakness Status: Acute Assessment and Plan: PT/OT consult Patient is deconditioned Overall poor functional status Appreciate Neurology note Will consider repeat MRI of Lumbar area. (2) History of hypertension: Code(s): Z86.79 - Personal history of other diseases of the circulatory system Status: Acute Assessment and Plan: Continue to monitor (3) Unsteady gait: Code(s): R26.81 - Unsteadiness on feet Status: Acute Assessment and Plan: PT/OT will try and get patient out of bed I did discuss with patient he need to work so we can make further decisions. (4) Weakness: Code(s): R53.1 - Weakness Status: Acute Assessment and Plan: Supportive care. Seems to be more pronounced of the proximal flexors at the hip and pelvic area. Patient states that this has been present now for about a year (5) Mild reactive airways disease: Qualifiers: Asthma persistence: unspecified Qualified Code(s): J45.909 - Unspecified asthma, uncomplicated Code(s): J45.909 - Unspecified asthma, uncomplicated Status: Acute Assessment and Plan: Stable. (6) Hyponatremia: Code(s): E87.1 - Hypo-osmolality and hyponatremia Status: Chronic Assessment and Plan: Improved Appreciate Nephrology note. (7) Abdominal pain: Qualifiers: Abdominal location: generalized Qualified Code(s): R10.84 - Generalized abdominal pain Code(s): R10.9 - Unspecified abdominal pain Status: Acute Assessment and Plan: Did not complain of abdominal pain today Stated that she feels well. (8) Burst fracture of T12 vertebra: Code(s): S22.081A - Stable burst fracture of T11-T12 vertebra, initial encounter for closed fracture Status: Acute Assessment and Plan: S/p multiple surgeries Will consider MRI (9) Urinary retention: Code(s): R33.9 - Retention of urine, unspecified Status: Acute Assessment and Plan: Sommers was placed had 1300 cc out. Patient and state that prior to coming to the hospital she was urinating just once a day and that this has been going on for the last 6 months or so. Subjective Date/time seen: 06/03/20 07:43 Review of Systems Review of Systems: Narrative: Unsteady gait. All systems reviewed & are unremarkable except as noted in HPI and below (HPI) Constitutional: Comments: no fevers, no rigors, no chills. Eyes: Comments: no vision changes. ENT: Comments: no ear ache, no throat ache, no nasal discharge or congestion. Cardiovascular: Comments: no chest pain, no sob, no leg swelling. Respiratory: Comments: no sob, no cough, no sputum production. Gastrointestinal: Comments: no n/v/diarrhea. Musculoskeletal: Musculoskeletal: Reports abnormal gait and Reports back pain Integumentary/Breasts: Comments: no rashes. Neurologic: Comments: B/L LE subjective weakness. Hematologic/Lymphatic: Comments: No LAP Exam Narrative: Exam Narrative: Chronically ill looking.Generalized pallor. Const: General: cooperative, comfortable, no acute distress, alert and awake Nutritional Appearance: average body habitus and well nourished Orientation/consciousness: patient oriented x3 HENMT: Head: normal to inspection and normocephalic Ears: hearing grossly normal bilaterally General nose exam: Normal external nose present Face and sinus: normal facial exam Mouth: Yes Normal oral and palatal mucosa present Eyes: General: appearance normal, both eyes and all related structures Pupils: Equal, round and reactive pupils present EOM: EOMs intact bilaterally Neck: Neck: normal visual inspection, no lymphadenopathy and no JVD Resp: Auscultation: clear to auscultation bilaterally Cardio: Jugular venous distension: no JVD Rate: regular rate Rhythm: regular rhythm Heart sounds: S1
--- NOTE | 2020-06-03 08:39 | PCOTNOTE ---
Attempted to see patient for occupational therapy treatment session at 8:37. Attempted to arouse patient with calling her name, sitting her bed up and asking her date of . Pt. would open eyes minimally and shake head, but would not answer questions appropriately d/t drowsiness. will attempt again later today.
[2020-06-03] MEDS: lisinopriL 20 MG TABLET 40 MG PO (09:33)
[2020-06-03] MEDS: FERROUS SULFATE 324 MG TABLET PO (09:34)
[2020-06-03] MEDS: PANTOPRAZOLE 40 MG TABLET PO ×2 (09:34→15:46)
[2020-06-03] MEDS: MULTIVITAMINS THERAPEUTIC TAB (*BKC) 1 TABLET PO (09:34)
[2020-06-03] MEDS: polyethylene glycoL 3350 17 GM POWD.PACK PO (09:34)
[2020-06-03] MEDS: FOLIC ACID 1 MG TABLET PO (09:34)
[2020-06-03] MEDS: DOXYCYCLINE HYCLATE 100 MG TABLET PO ×2 (09:34→15:46)
--- NOTE | 2020-06-03 10:45 | P.PNNP_ITS ---
Progress Note: A&P Assessment and Plan (1) Hyponatremia: Code(s): E87.1 - Hypo-osmolality and hyponatremia Status: Chronic Assessment and Plan: * chronic issue/problems since earlier this year (appears to be have started/noted in October 2019) * has fluctuated anywhere from 124 - 135mmol/L * It seems to rise and fall quickly. * CXR and head CT is negative * The patient is up-to-date for cancer screening except that she does have a colonoscopy which is pending. * TSH okay. * Cortisol level borderline low. Considering her weakness and anorexia will check a Cortrosyn stim. * SPEP is pending. * Etiology could be pre renal azotemia from her anorexia, or possibly something going on in the colon. * Narcotics could be playing a role as well or possibly chronic pain. * She was not taking diuretics at home. * sodium appears to be slowly improving although zigzag course continues. * Check another level this afternoon and tomorrow. (2) Generalized weakness: Code(s): R53.1 - Weakness Status: Acute Assessment and Plan: * related to #1(?) * further testing ordered (aldolase, MRI of brain/spine, EMG) * given hx of gastric bypass surgery - possible vitamin deficiency(?) * Neurology on board (3) Anorexia: Code(s): R63.0 - Anorexia Status: Acute Assessment and Plan: * playing a role with #1 * follow-up on urine electrolytes * on gentle IVFs at this time (4) Anemia: Code(s): D64.9 - Anemia, unspecified Status: Acute Assessment and Plan: * T sat, B12, folate are okay. * Hemoglobin stable (5) Benign essential hypertension: Code(s): I10 - Essential (primary) hypertension Status: Chronic Assessment and Plan: * BP well controlled * continue current medications * diuretics on hold due to #1 Subjective Date/time seen: 06/03/20 10:45 Interval history: Patient is alert. She is feeling okay today. Eating and drinking okay. No chest pain or shortness of breath Review of Systems Cardiovascular: Cardiovascular: Reports no additional cardiovascular complaints Respiratory: Respiratory: Reports no additional respiratory complaints Gastrointestinal: Gastrointestinal: Reports no additional gastrointestinal complaints Genitourinary: Genitourinary: Reports no additional female genitourinary complaints Exam Narrative: Exam Narrative: WDWN in NAD skin no rash head ncat lungs clear cor reg no rub or gallop abd BS+ nontender and soft ext no edema or cyanosis. Objective Data Vital Signs Vital Signs: Vital Signs - 24 hr 06/02/20 14:00 06/02/20 22:00 06/03/20 06:00 Temperature 36.6 C 36.3 C L 36.2 C L Pulse Rate 94 84 78 Respiratory Rate 16 16 18 Blood Pressure 110/76 119/75 147/84 H Pulse Oximetry 100 100 100 Intake/Output Intake/Output: Intake & Output 05/31/20 06/01/20 06/02/20 06/03/20 23:59 23:59 23:59 23:59 Intake Total 1000 3420 2050 Output Total 2900 850 Balance 4005 820 2778 Meds/Results Medications: Active Medications Generic Name Dose Route Start Last Admin Trade Name Freq PRN Reason Stop Dose Admin Albuterol 2 puff 06/02/20 12:44 Albuterol Sulfate (*Sp) Aerosol 1 Puff INHALATIO
--- NOTE | 2020-06-03 10:45 | PM.PNNEP ---
Progress Note: A&P Assessment and Plan (1) Hyponatremia: Code(s): E87.1 - Hypo-osmolality and hyponatremia Status: Chronic Assessment and Plan: chronic issue/problems since earlier this year (appears to be have started/noted in October 2019) has fluctuated anywhere from 124 - 135mmol/L It seems to rise and fall quickly. CXR and head CT is negative The patient is up-to-date for cancer screening except that she does have a colonoscopy which is pending. TSH okay. Cortisol level borderline low. Considering her weakness and anorexia will check a Cortrosyn stim. SPEP is pending. Etiology could be pre renal azotemia from her anorexia, or possibly something going on in the colon. Narcotics could be playing a role as well or possibly chronic pain. She was not taking diuretics at home. sodium appears to be slowly improving although zigzag course continues. Check another level this afternoon and tomorrow. (2) Generalized weakness: Code(s): R53.1 - Weakness Status: Acute Assessment and Plan: related to #1(?) further testing ordered (aldolase, MRI of brain/spine, EMG) given hx of gastric bypass surgery - possible vitamin deficiency(?) Neurology on board (3) Anorexia: Code(s): R63.0 - Anorexia Status: Acute Assessment and Plan: playing a role with #1 follow-up on urine electrolytes on gentle IVFs at this time (4) Anemia: Code(s): D64.9 - Anemia, unspecified Status: Acute Assessment and Plan: T sat, B12, folate are okay. Hemoglobin stable (5) Benign essential hypertension: Code(s): I10 - Essential (primary) hypertension Status: Chronic Assessment and Plan: BP well controlled continue current medications diuretics on hold due to #1 Subjective Date/time seen: 06/03/20 10:45 Interval history: Patient is alert. She is feeling okay today. Eating and drinking okay. No chest pain or shortness of breath Review of Systems Cardiovascular: Cardiovascular: Reports no additional cardiovascular complaints Respiratory: Respiratory: Reports no additional respiratory complaints Gastrointestinal: Gastrointestinal: Reports no additional gastrointestinal complaints Genitourinary: Genitourinary: Reports no additional female genitourinary complaints Exam Narrative: Exam Narrative: WDWN in NAD skin no rash head ncat lungs clear cor reg no rub or gallop abd BS+ nontender and soft ext no edema or cyanosis. Objective Data Vital Signs Vital Signs: Vital Signs - 24 hr 06/02/20 14:00 06/02/20 22:00 06/03/20 06:00 Temperature 36.6 C 36.3 C L 36.2 C L Pulse Rate 94 84 78 Respiratory Rate 16 16 18 Blood Pressure 110/76 119/75 147/84 H Pulse Oximetry 100 100 100 Intake/Output Intake/Output: Intake & Output 05/31/20 06/01/20 06/02/20 06/03/20 23:59 23:59 23:59 23:59 Intake Total 1000 3420 2050 Output Total 2900 850 Balance 6674 145 6499 Meds/Results Medications: Active Medications Generic Name Dose Route Start Last Admin Trade Name Freq PRN Reason Stop Dose Admin Albuterol 2 puff 06/02/20 12:44 Albuterol Sulfate (*Sp) Aerosol 1 Puff INHALATION Q4-6H PRN Shortness Of Breath Alprazolam 0.25 mg 06/02/20 12:44 Alprazolam (*Crx) 0.25 Mg Tablet PO BID PRN Anxiety Doxycycline Hyclate 100 mg 06/02/20 17:00 06/03/20 09:34 Doxycycline Hyclate 100 Mg Tablet PO 06/08/20 17:01 100 mg BID RASHID Administration Ferrous Sulfate 324 mg 06/03/20 09:00 06/03/20 09:34 Ferrous Sulfate 324 Mg Tablet PO 324 mg DAILY RASHID Administration Folic Acid 1 mg 06/03/20 09:00 06/03/20 09:34 Folic Acid 1 Mg Tablet PO 1 mg DAILY RASHID Administration Sodium Chloride 1,000 mls @ 125 mls/hr 06/01/20 21:35 06/03/20 09:33 Normal Saline Iv IV CONT 125 mls/hr .Q8H RASHID Administration Ibuprofen 200 mg 06/02/20 12:44 Ibuprofen 200 Mg Tablet
[2020-06-03 14:00] VITALS: BP 95/67; PULSE 102; RESP 18; TEMP 36.6; O2SAT 100
[2020-06-03] MEDS: ALPRAZolam (*CRX) 0.25 MG TABLET PO (15:45)
[2020-06-03] MEDS: traMADol HCL (*CRX) 50 MG TABLET PO (15:45)
--- NOTE | 2020-06-03 16:13 | WPDNEUROPN ---
Progress Note: A&P Assessment and Plan (1) Generalized weakness: Code(s): R53.1 - Weakness Status: Acute (2) Unsteady gait: Code(s): R26.81 - Unsteadiness on feet Status: Acute (3) Debility: Code(s): R53.81 - Other malaise Status: Acute (4) Hyponatremia: Code(s): E87.1 - Hypo-osmolality and hyponatremia Status: Chronic (5) Burst fracture of T12 vertebra: Code(s): S22.081A - Stable burst fracture of T11-T12 vertebra, initial encounter for closed fracture Status: Acute (6) Weight loss: Code(s): R63.4 - Abnormal weight loss Status: Acute (7) Anorexia: Code(s): R63.0 - Anorexia Status: Acute (8) Anxiety with depression: Code(s): F41.8 - Other specified anxiety disorders Status: Acute (9) Electrolyte imbalance: Code(s): E87.8 - Other disorders of electrolyte and fluid balance, not elsewhere classified Status: Acute Additional Plan knowing the improvement in her physical state I think she will benefit from the PT and OT and if she does not then repeat MRI of her lumbosacral spine might be warranted to see what is happening in her lumbar area which she has had multiple surgeries performed and also has a history of a burst fracture in 1 of the lumbar vertebra Review of Systems Review of Systems: All systems reviewed & are unremarkable except as noted in HPI and below Exam Narrative: Exam Narrative: patient is awake and alert oriented x3 follows all commands she has not any distress has relatively running low blood pressure her eyes ears nose throat normal neck is supple Kernig's and Brudzinski signs are negative lungs are clear to auscultation abdomen is soft not tender extremities reveal no deformities she does have evidence of peripheral neuropathy with absent reflexes in the lower extremities and only trace in the upper extremities overall significant improvement by my examination between yesterday and today Objective Data Vital Signs Vital Signs: Vital Signs - 24 hr 06/02/20 22:00 06/03/20 06:00 06/03/20 14:00 Temperature 36.3 C L 36.2 C L 36.6 C Pulse Rate 84 78 102 H Respiratory Rate 16 18 18 Blood Pressure 119/75 147/84 H 95/67 L Pulse Oximetry 100 100 100 Intake/Output Intake/Output: Intake & Output 05/31/20 06/01/20 06/02/20 06/03/20 23:59 23:59 23:59 23:59 Intake Total 1000 3420 2290 Output Total 2900 850 Balance 2490 067 6747 Meds/Results Medications: Active Medications Generic Name Dose Route Start Last Admin Trade Name Freq PRN Reason Stop Dose Admin Albuterol 2 puff 06/02/20 12:44 Albuterol Sulfate (*Sp) Aerosol 1 Puff INHALATION Q4-6H PRN Shortness Of Breath Alprazolam 0.25 mg 06/02/20 12:44 06/03/20 15:45 Alprazolam (*Crx) 0.25 Mg Tablet PO 0.25 mg BID PRN Administration Anxiety Doxycycline Hyclate 100 mg 06/02/20 17:00 06/03/20 15:46 Doxycycline Hyclate 100 Mg Tablet PO 06/08/20 17:01 100 mg BID RASHID Administration Ferrous Sulfate 324 mg 06/03/20 09:00 06/03/20 09:34 Ferrous Sulfate 324 Mg Tablet PO 324 mg DAILY RASHID Administration Folic Acid 1 mg 06/03/20 09:00 06/03/20 09:34 Folic Acid 1 Mg Tablet PO 1 mg DAILY RASHID Administration Sodium Chloride 1,000 mls @ 125 mls/hr 06/01/20 21:35 06/03/20 09:33 Normal Saline Iv IV CONT 125 mls/hr .Q8H RASHID Administration Ibuprofen 200 mg 06/02/20 12:44 Ibuprofen 200 Mg Tablet PO Q6-8H PRN Pain 1-3 Lisinopril 40 mg 06/03/20 09:00 06/03/20 09:33 Lisinopril 20 Mg Tablet PO 07/03/20 09:01 40 mg DAILY RASHID Administration Lorazepam 1 mg 06/02/20 17:10 Lorazepam (*Crx) 1 Mg Tablet PO 07/02/20 21:01 HS PRN Restless LEG SYNDROME Multivitamins Therapeutic 1 tablet 06/03/20 09:00 06/03/20 09:34 Multivitamins Therapeutic Tab (*Bkc) PO 1 tablet DAILY RASHID Administration Oxycodone/Acetaminophen 1 tabl
[2020-06-03 21:00] VITALS: PULSE 78; RESP 18; O2SAT 99
[2020-06-03 22:00] VITALS: BP 115/75; PULSE 78; RESP 18; TEMP 36.2; O2SAT 99
[2020-06-04] MEDS: SODIUM CHLORIDE 0.9% IV 1,000 ML 125 ML IV CONT (00:51)
[2020-06-04] MEDS: ALPRAZolam (*CRX) 0.25 MG TABLET PO (00:52)
[2020-06-04 06:00] VITALS: BP 99/78; PULSE 64; RESP 18; TEMP 36.3; O2SAT 100
[2020-06-04] MEDS: polyethylene glycoL 3350 17 GM POWD.PACK PO (08:47)
[2020-06-04] MEDS: PANTOPRAZOLE 40 MG TABLET PO ×2 (08:47→17:28)
[2020-06-04] MEDS: DOXYCYCLINE HYCLATE 100 MG TABLET PO ×2 (08:48→17:28)
[2020-06-04] MEDS: FERROUS SULFATE 324 MG TABLET PO (08:48)
[2020-06-04] MEDS: MULTIVITAMINS THERAPEUTIC TAB (*BKC) 1 TABLET PO (08:48)
[2020-06-04] MEDS: FOLIC ACID 1 MG TABLET PO (08:48)
[2020-06-04] MEDS: COSYNTROPIN 0.25 MG/ML VIAL IV PUSH (10:35)
[2020-06-04 10:55] LABS: Anion Gap 9 mmol/L (8-16); Blood Urea Nitrogen 14 mg/dL (7-17); Calcium 8.7 mg/dL (8.4-10.2); Carbon Dioxide 18 mmol/L (22-30); Chloride 108 mmol/L (98-107); Estimated CRCL calculation 64 ml/min; Estimated Glomerular Filt Rate > 60; Glucose 119 mg/dL (65-105); Sodium 135 mmol/L (137-145)
--- NOTE | 2020-06-04 11:18 | P.PNNP_ITS ---
Progress Note: A&P Assessment and Plan (1) Hyponatremia: Code(s): E87.1 - Hypo-osmolality and hyponatremia Status: Chronic Assessment and Plan: * chronic issue/problems since earlier this year (appears to be have started/noted in October 2019) * CXR and head CT is negative * The patient is up-to-date for cancer screening except that she does have a colonoscopy which is pending. * TSH okay. * Cortisol level borderline low. Considering her weakness and anorexia will check a Cortrosyn stim. * SPEP is pending. * Etiology could be pre renal azotemia from her anorexia, or possibly something going on in the colon. * Narcotics could be playing a role as well or possibly chronic pain. * Sodium level has improved. Currently is up to 135 * currently on IV fluids and fluid restriction. Will stop IV fluids. If sodiu m level is okay and Cortrosyn stimulation test is okay she can go home tomorrow. (2) Generalized weakness: Code(s): R53.1 - Weakness Status: Acute Assessment and Plan: * related to #1(?) * further testing ordered (aldolase, MRI of brain/spine, EMG) * given hx of gastric bypass surgery - possible vitamin deficiency(?) * Neurology on board (3) Anorexia: Code(s): R63.0 - Anorexia Status: Acute Assessment and Plan: * playing a role with #1 (4) Anemia: Code(s): D64.9 - Anemia, unspecified Status: Acute Assessment and Plan: * T sat, B12, folate are okay. * Hemoglobin stable (5) Benign essential hypertension: Code(s): I10 - Essential (primary) hypertension Status: Chronic Assessment and Plan: * BP well controlled * continue current medications * diuretics on hold due to #1 Subjective Date/time seen: 06/04/20 11:18 Interval history: Patient is alert. She is feeling okay today. Working with physical therapy to help mobilize Review of Systems Cardiovascular: Cardiovascular: Reports no additional cardiovascular complaints Respiratory: Respiratory: Reports no additional respiratory complaints Gastrointestinal: Gastrointestinal: Reports no additional gastrointestinal complaints Genitourinary: Genitourinary: Reports no additional female genitourinary complaints Exam Narrative: Exam Narrative: WDWN in NAD skin no rash head ncat lungs clear cor reg no rub or gallop abd BS+ nontender and soft ext no edema or cyanosis. Objective Data Vital Signs Vital Signs: Vital Signs - 24 hr 06/03/20 14:00 06/03/20 21:00 06/03/20 22:00 Temperature 36.6 C 36.2 C L Pulse Rate 102 H 78 78 Respiratory Rate 18 18 18 Blood Pressure 95/67 L 115/75 Pulse Oximetry 100 99 99 06/04/20 06:00 Temperature 36.3 C L Pulse Rate 64 Respiratory Rate 18 Blood Pressure 99/78 L Pulse Oximetry 100 Intake/Output Intake/Output: Intake & Output 06/01/20 06/02/20 06/03/20 06/04/20 23:59 23:59 23:59 23:59 Intake Total 1000 3420 3790 1440 Output Total 2900 2200 300 Balance 6382 330 5622 1140 Meds/Results Medications: Active Medications Generic Name Dose Route Start Last Admin Trade Name Freq PRN Reason Stop Dose Admin Albuterol 2 puff 05/18
--- NOTE | 2020-06-04 11:18 | PM.PNNEP ---
Progress Note: A&P Assessment and Plan (1) Hyponatremia: Code(s): E87.1 - Hypo-osmolality and hyponatremia Status: Chronic Assessment and Plan: chronic issue/problems since earlier this year (appears to be have started/noted in October 2019) CXR and head CT is negative The patient is up-to-date for cancer screening except that she does have a colonoscopy which is pending. TSH okay. Cortisol level borderline low. Considering her weakness and anorexia will check a Cortrosyn stim. SPEP is pending. Etiology could be pre renal azotemia from her anorexia, or possibly something going on in the colon. Narcotics could be playing a role as well or possibly chronic pain. Sodium level has improved. Currently is up to 135 currently on IV fluids and fluid restriction. Will stop IV fluids. If sodium level is okay and Cortrosyn stimulation test is okay she can go home tomorrow. (2) Generalized weakness: Code(s): R53.1 - Weakness Status: Acute Assessment and Plan: related to #1(?) further testing ordered (aldolase, MRI of brain/spine, EMG) given hx of gastric bypass surgery - possible vitamin deficiency(?) Neurology on board (3) Anorexia: Code(s): R63.0 - Anorexia Status: Acute Assessment and Plan: playing a role with #1 (4) Anemia: Code(s): D64.9 - Anemia, unspecified Status: Acute Assessment and Plan: T sat, B12, folate are okay. Hemoglobin stable (5) Benign essential hypertension: Code(s): I10 - Essential (primary) hypertension Status: Chronic Assessment and Plan: BP well controlled continue current medications diuretics on hold due to #1 Subjective Date/time seen: 06/04/20 11:18 Interval history: Patient is alert. She is feeling okay today. Working with physical therapy to help mobilize Review of Systems Cardiovascular: Cardiovascular: Reports no additional cardiovascular complaints Respiratory: Respiratory: Reports no additional respiratory complaints Gastrointestinal: Gastrointestinal: Reports no additional gastrointestinal complaints Genitourinary: Genitourinary: Reports no additional female genitourinary complaints Exam Narrative: Exam Narrative: WDWN in NAD skin no rash head ncat lungs clear cor reg no rub or gallop abd BS+ nontender and soft ext no edema or cyanosis. Objective Data Vital Signs Vital Signs: Vital Signs - 24 hr 06/03/20 14:00 06/03/20 21:00 06/03/20 22:00 Temperature 36.6 C 36.2 C L Pulse Rate 102 H 78 78 Respiratory Rate 18 18 18 Blood Pressure 95/67 L 115/75 Pulse Oximetry 100 99 99 06/04/20 06:00 Temperature 36.3 C L Pulse Rate 64 Respiratory Rate 18 Blood Pressure 99/78 L Pulse Oximetry 100 Intake/Output Intake/Output: Intake & Output 06/01/20 06/02/20 06/03/20 06/04/20 23:59 23:59 23:59 23:59 Intake Total 1000 3420 3790 1440 Output Total 2900 2200 300 Balance 2121 056 9430 1140 Meds/Results Medications: Active Medications Generic Name Dose Route Start Last Admin Trade Name Freq PRN Reason Stop Dose Admin Albuterol 2 puff 06/02/20 12:44 Albuterol Sulfate (*Sp) Aerosol 1 Puff INHALATION Q4-6H PRN Shortness Of Breath Alprazolam 0.25 mg 06/02/20 12:44 06/04/20 00:52 Alprazolam (*Crx) 0.25 Mg Tablet PO 0.25 mg BID PRN Administration Anxiety Doxycycline Hyclate 100 mg 06/02/20 17:00 06/04/20 08:48 Doxycycline Hyclate 100 Mg Tablet PO 06/08/20 17:01 100 mg BID RASHID Administration Ferrous Sulfate 324 mg 06/03/20 09:00 06/04/20 08:48 Ferrous Sulfate 324 Mg Tablet PO 324 mg DAILY RASHID Administration Folic Acid 1 mg 06/03/20 09:00 06/04/20 08:48 Folic Acid 1 Mg Tablet PO 1 mg DAILY RASHID Administration Ibuprofen 200 mg 06/02/20 12:44 Ibuprofen 200 Mg Tablet PO Q6-8H PRN Pain 1-3 Lisinopril 40 mg 06/03/20 09:00 06/03/20 09:33 Lisinopril
--- NOTE | 2020-06-04 11:46 | PM.IMPN ---
Progress Note: A&P Assessment and Plan (1) Weakness generalized: Code(s): R53.1 - Weakness Status: Acute Assessment and Plan: Seems to be chronic generalized weakness that has been getting worse over last 1 year that has to do with her multiple back surgeries and deconditioning over time. PT/OT consult and recommend her going to an SNF for further therapy. Family is looking into [facility] recommends getting MRI Cervical and Lumbar with/without contrast for further evaluation of lower extremity weakness. Continue monitoring (2) Unsteady gait: Code(s): R26.81 - Unsteadiness on feet Status: Acute Assessment and Plan: Could be secondary to chronic back pain in issues from surgeries verses deconditioning verses new acute changes to her lower back or cervical spine. PT/OT continue working with the patient Will get MRI of cervical and lumbar spine for further evaluation Continue monitoring. (3) Hypokalemia: Code(s): E87.6 - Hypokalemia Status: Acute Assessment and Plan: Potassium was low at 3.0 today. This was replenished. Mag was normal at 1.8. Will recheck Potassium in the morning. Most likely due to dilution. (4) Hyponatremia: Code(s): E87.1 - Hypo-osmolality and hyponatremia Status: Chronic Assessment and Plan: Could be secondary to anorexia versus dehydration. She was receiving IV fluids which improved her sodium to 135 today. Nephrology is on board and recommends discontinuing IV fluids at this time Nephrology found her cortisol level was borderline and is doing a Cortrosyn stim test. Will recheck BMP in the morning and ensure sodium does not drop significantly. Continue monitoring. Appreciate Nephrology note. (5) Mild reactive airways disease: Qualifiers: Asthma persistence: unspecified Qualified Code(s): J45.909 - Unspecified asthma, uncomplicated Code(s): J45.909 - Unspecified asthma, uncomplicated Status: Acute Assessment and Plan: Stable. Continue inhalers as needed (6) Abdominal pain: Qualifiers: Abdominal location: generalized Qualified Code(s): R10.84 - Generalized abdominal pain Code(s): R10.9 - Unspecified abdominal pain Status: Acute Assessment and Plan: Did not complain of abdominal pain today Stated that she feels well. Eating and drinking without any issues. (7) Burst fracture of T12 vertebra: Code(s): S22.081A - Stable burst fracture of T11-T12 vertebra, initial encounter for closed fracture Status: Acute Assessment and Plan: Chronic. S/p multiple surgeries We are getting an MRI of her cervical and lumbar spines (8) Urinary retention: Code(s): R33.9 - Retention of urine, unspecified Status: Acute Assessment and Plan: Patient and state that prior to coming to the hospital she was urinating just once a day and that this has been going on for the last 6 months or so. Sommers was placed had 1650 cc out. Continue monitoring intake and output. She may need to leave Sommers catheter in place and follow-up with urology as an outpatient for further testing. (9) History of hypertension: Code(s): Z86.79 - Personal history of other diseases of the circulatory system Status: Acute Assessment and Plan: Blood pressure has been running well. This morning it was slightly low at 99/78 but she was not symptomatic with any lightheadedness or dizziness. Continue to monitor Time Spent W
[2020-06-04 12:14] LABS: Magnesium 1.8 mg/dL (1.6-2.3)
[2020-06-04] MEDS: POTASSIUM CHLORIDE 20 MEQ TABLET 40 MEQ PO (12:34)
[2020-06-04] MEDS: traMADol HCL (*CRX) 50 MG TABLET PO (12:34)
[2020-06-04 14:00] VITALS: BP 101/81; PULSE 70; RESP 18; TEMP 36.5; O2SAT 100
--- NOTE | 2020-06-04 16:28 | WPDNEUROPN ---
Progress Note: A&P Assessment and Plan (1) Hypokalemia: Code(s): E87.6 - Hypokalemia Status: Acute (2) Urinary retention: Code(s): R33.9 - Retention of urine, unspecified Status: Acute (3) Generalized weakness: Code(s): R53.1 - Weakness Status: Acute (4) Weakness generalized: Code(s): R53.1 - Weakness Status: Acute (5) History of hypertension: Code(s): Z86.79 - Personal history of other diseases of the circulatory system Status: Acute (6) Unsteady gait: Code(s): R26.81 - Unsteadiness on feet Status: Acute (7) Debility: Code(s): R53.81 - Other malaise Status: Acute (8) Hyponatremia: Code(s): E87.1 - Hypo-osmolality and hyponatremia Status: Chronic (9) Burst fracture of T12 vertebra: Code(s): S22.081A - Stable burst fracture of T11-T12 vertebra, initial encounter for closed fracture Status: Acute (10) Weight loss: Code(s): R63.4 - Abnormal weight loss Status: Acute (11) Anorexia: Code(s): R63.0 - Anorexia Status: Acute (12) Fatigue: Code(s): R53.83 - Other fatigue Status: Acute (13) Gastroesophageal reflux disease: Code(s): K21.9 - Gastro-esophageal reflux disease without esophagitis Status: Acute (14) Vitamin B12 deficiency: Code(s): E53.8 - Deficiency of other specified B group vitamins Status: Acute (15) Hx of gastric bypass: Code(s): Z98.84 - Bariatric surgery status Status: Acute (16) Benign essential hypertension: Code(s): I10 - Essential (primary) hypertension Status: Chronic Additional Plan I have discussed this with the hospitalist we should get the MRI of the cervical and the lumbar spine rest of the management as before Review of Systems Review of Systems: All systems reviewed & are unremarkable except as noted in HPI and below Exam Narrative: Exam Narrative: patient is awake and alert well oriented mild short-term memory deficit fluent speech with normal cranial examination normal midline tongue generalized weakness lower extremities more so than the upper extremities but better in the past couple of days absent reflexes in the lower extremities with sensory deficit and also diminished reflexes in the upper extremities Objective Data Vital Signs Vital Signs: Vital Signs - 24 hr 06/03/20 21:00 06/03/20 22:00 06/04/20 06:00 Temperature 36.2 C L 36.3 C L Pulse Rate 78 78 64 Respiratory Rate 18 18 18 Blood Pressure 115/75 99/78 L Pulse Oximetry 99 99 100 Intake/Output Intake/Output: Intake & Output 06/01/20 06/02/20 06/03/20 06/04/20 23:59 23:59 23:59 23:59 Intake Total 1000 3420 3790 1560 Output Total 2900 2200 300 Balance 4844 617 5785 1260 Meds/Results Medications: Active Medications Generic Name Dose Route Start Last Admin Trade Name Freq PRN Reason Stop Dose Admin Albuterol 2 puff 06/02/20 12:44 Albuterol Sulfate (*Sp) Aerosol 1 Puff INHALATION Q4-6H PRN Shortness Of Breath Alprazolam 0.25 mg 06/02/20 12:44 06/04/20 00:52 Alprazolam (*Crx) 0.25 Mg Tablet PO 0.25 mg BID PRN Administration Anxiety Docusate Sodium 100 mg 06/04/20 21:00 Docusate Sodium 100 Mg Capsule PO Q12HR RASHID Doxycycline Hyclate 100 mg 06/02/20 17:00 06/04/20 08:48 Doxycycline Hyclate 100 Mg Tablet PO 06/08/20 17:01 100 mg BID RASHID Administration Ferrous Sulfate 324 mg 06/03/20 09:00 06/04/20 08:48 Ferrous Sulfate 324 Mg Tablet PO 324 mg DAILY RASHID Administration Folic Acid 1 mg 06/03/20 09:00 06/04/20 08:48 Folic Acid 1 Mg Tablet PO 1 mg DAILY RASHID Administration Ibuprofen 200 mg 06/02/20 12:44 Ibuprofen 200 Mg Tablet PO Q6-8H PRN Pain 1-3 Lisinopril 40 mg 06/03/20 09:00 06/03/20 09:33 Lisinopril 20 Mg Tablet PO 07/03/20 09:01 40 mg DAILY RASHID Administration Lorazepam 1 mg 06/02
[2020-06-04] MEDS: DOCUSATE SODIUM 100 MG CAPSULE PO (20:49)
[2020-06-04 22:00] VITALS: BP 106/65; PULSE 80; RESP 20; TEMP 36.6; O2SAT 100
[2020-06-05 04:22] LABS: Osmolality, Urine 312 mOsm/kg (50-1200)
[2020-06-05 06:00] VITALS: BP 124/82; PULSE 75; RESP 18; TEMP 36.6; O2SAT 98
[2020-06-05 06:50] LABS: Anion Gap 6 mmol/L (8-16); Blood Urea Nitrogen 13 mg/dL (7-17); Calcium 8.5 mg/dL (8.4-10.2); Carbon Dioxide 20 mmol/L (22-30); Chloride 109 mmol/L (98-107); Estimated CRCL calculation 73 ml/min; Estimated Glomerular Filt Rate > 60; Glucose 86 mg/dL (65-105); Magnesium 1.8 mg/dL (1.6-2.3); Potassium 3.4 mmol/L (3.4-5.0); Sodium 135 mmol/L (137-145)
[2020-06-05] MEDS: FOLIC ACID 1 MG TABLET PO (08:15)
[2020-06-05] MEDS: MULTIVITAMINS THERAPEUTIC TAB (*BKC) 1 TABLET PO (08:15)
[2020-06-05] MEDS: FERROUS SULFATE 324 MG TABLET PO (08:15)
[2020-06-05] MEDS: PANTOPRAZOLE 40 MG TABLET PO ×2 (08:15→17:02)
[2020-06-05] MEDS: DOCUSATE SODIUM 100 MG CAPSULE PO ×2 (08:15→20:07)
[2020-06-05] MEDS: polyethylene glycoL 3350 17 GM POWD.PACK PO (08:15)
[2020-06-05] MEDS: DOXYCYCLINE HYCLATE 100 MG TABLET PO ×2 (08:15→17:02)
[2020-06-05 14:00] VITALS: BP 138/88; PULSE 100; RESP 18; TEMP 36.7; O2SAT 100
--- NOTE | 2020-06-05 14:04 | PC.NURSE ---
Patient to MRI per stretcher.
--- NOTE | 2020-06-05 15:25 | PC.NURSE ---
Pt returned from MRI.
--- NOTE | 2020-06-05 15:44 | P.PNNP_ITS ---
Progress Note: A&P Assessment and Plan (1) Hyponatremia: Code(s): E87.1 - Hypo-osmolality and hyponatremia Status: Chronic Assessment and Plan: * chronic issue/problems since earlier this year (appears to be have started/noted in October 2019) * CXR and head CT is negative * The patient is up-to-date for cancer screening except that she does have a colonoscopy which is pending. * TSH okay. * Cortisol level borderline low. Considering her weakness and anorexia will check a Cortrosyn stim. * SPEP is pending. * Etiology could be pre renal azotemia from her anorexia, or possibly something going on in the colon. * Narcotics could be playing a role as well or possibly chronic pain. * Sodium level has improved. Currently is stable at 135 * the patient is on fluid restriction only. * At this point we will just continue the fluid restriction. * She can go home and any time from the kidney standpoint * she can follow up in my office or follow-up with her primary care physician for treatment of hyponatremia going forward. (2) Generalized weakness: Code(s): R53.1 - Weakness Status: Acute Assessment and Plan: * related to #1(?) * further testing ordered (aldolase, MRI of brain/spine, EMG) * given hx of gastric bypass surgery - possible vitamin deficiency(?) * Neurology on board * Getting physical therapy (3) Anorexia: Code(s): R63.0 - Anorexia Status: Acute Assessment and Plan: * playing a role with #1 (4) Anemia: Code(s): D64.9 - Anemia, unspecified Status: Acute Assessment and Plan: * T sat, B12, folate are okay. * Hemoglobin stable last check (5) Benign essential hypertension: Code(s): I10 - Essential (primary) hypertension Status: Chronic Assessment and Plan: * BP well controlled * continue current medications * diuretics on hold due to #1 Subjective Date/time seen: 06/05/20 15:44 Interval history: Patient is alert. Eating and drinking well. No chest pain or shortness of breath Review of Systems Cardiovascular: Cardiovascular: Reports no additional cardiovascular complaints Respiratory: Respiratory: Reports no additional respiratory complaints Gastrointestinal: Gastrointestinal: Reports no additional gastrointestinal complaints Genitourinary: Genitourinary: Reports no additional female genitourinary complaints Exam Narrative: Exam Narrative: WDWN in NAD skin no rash head ncat lungs clear bilaterally cor reg no rub or gallop abd BS+ nontender and soft ext no edema or cyanosis. Objective Data Vital Signs Vital Signs: Vital Signs - 24 hr 06/04/20 22:00 06/05/20 06:00 Temperature 36.6 C 36.6 C Pulse Rate 80 75 Respiratory Rate 20 18 Blood Pressure 106/65 124/82 Pulse Oximetry 100 98 Intake/Output Intake/Output: Intake & Output 06/02/20 06/03/20 06/04/20 06/05/20 23:59 23:59 23:59 23:59 Intake Total 3420 3790 2080 340 Output Total 2900 2200 650 200 Balance 520 1590 1430 140 Meds/Results Medications: Active Medications Generic Name Dose Route Start Last Admin Trade Name Freq PRN Reason Stop Dose Admin Albuterol 2 puff 06/02/20 12:44 Albuterol Sul
--- NOTE | 2020-06-05 15:44 | PM.PNNEP ---
Progress Note: A&P Assessment and Plan (1) Hyponatremia: Code(s): E87.1 - Hypo-osmolality and hyponatremia Status: Chronic Assessment and Plan: chronic issue/problems since earlier this year (appears to be have started/noted in October 2019) CXR and head CT is negative The patient is up-to-date for cancer screening except that she does have a colonoscopy which is pending. TSH okay. Cortisol level borderline low. Considering her weakness and anorexia will check a Cortrosyn stim. SPEP is pending. Etiology could be pre renal azotemia from her anorexia, or possibly something going on in the colon. Narcotics could be playing a role as well or possibly chronic pain. Sodium level has improved. Currently is stable at 135 the patient is on fluid restriction only. At this point we will just continue the fluid restriction. She can go home and any time from the kidney standpoint she can follow up in my office or follow-up with her primary care physician for treatment of hyponatremia going forward. (2) Generalized weakness: Code(s): R53.1 - Weakness Status: Acute Assessment and Plan: related to #1(?) further testing ordered (aldolase, MRI of brain/spine, EMG) given hx of gastric bypass surgery - possible vitamin deficiency(?) Neurology on board Getting physical therapy (3) Anorexia: Code(s): R63.0 - Anorexia Status: Acute Assessment and Plan: playing a role with #1 (4) Anemia: Code(s): D64.9 - Anemia, unspecified Status: Acute Assessment and Plan: T sat, B12, folate are okay. Hemoglobin stable last check (5) Benign essential hypertension: Code(s): I10 - Essential (primary) hypertension Status: Chronic Assessment and Plan: BP well controlled continue current medications diuretics on hold due to #1 Subjective Date/time seen: 06/05/20 15:44 Interval history: Patient is alert. Eating and drinking well. No chest pain or shortness of breath Review of Systems Cardiovascular: Cardiovascular: Reports no additional cardiovascular complaints Respiratory: Respiratory: Reports no additional respiratory complaints Gastrointestinal: Gastrointestinal: Reports no additional gastrointestinal complaints Genitourinary: Genitourinary: Reports no additional female genitourinary complaints Exam Narrative: Exam Narrative: WDWN in NAD skin no rash head ncat lungs clear bilaterally cor reg no rub or gallop abd BS+ nontender and soft ext no edema or cyanosis. Objective Data Vital Signs Vital Signs: Vital Signs - 24 hr 06/04/20 22:00 06/05/20 06:00 Temperature 36.6 C 36.6 C Pulse Rate 80 75 Respiratory Rate 20 18 Blood Pressure 106/65 124/82 Pulse Oximetry 100 98 Intake/Output Intake/Output: Intake & Output 06/02/20 06/03/20 06/04/20 06/05/20 23:59 23:59 23:59 23:59 Intake Total 3420 3790 2080 340 Output Total 2900 2200 650 200 Balance 520 1590 1430 140 Meds/Results Medications: Active Medications Generic Name Dose Route Start Last Admin Trade Name Freq PRN Reason Stop Dose Admin Albuterol 2 puff 06/02/20 12:44 Albuterol Sulfate (*Sp) Aerosol 1 Puff INHALATION Q4-6H PRN Shortness Of Breath Alprazolam 0.25 mg 06/02/20 12:44 06/04/20 00:52 Alprazolam (*Crx) 0.25 Mg Tablet PO 0.25 mg BID PRN Administration Anxiety Docusate Sodium 100 mg 06/04/20 21:00 06/05/20 08:15 Docusate Sodium 100 Mg Capsule PO 100 mg Q12HR RASHID Administration Doxycycline Hyclate 100 mg 06/02/20 17:00 06/05/20 08:15 Doxycycline Hyclate 100 Mg Tablet PO 06/08/20 17:01 100 mg BID RASHID Administration Ferrous Sulfate 324 mg 06/03/20 09:00 06/05/20 08:15 Ferrous Sulfate 324 Mg Tablet PO 324 mg DAILY RASHID Administration Folic Acid 1 mg 06/03/20 09:00 06/05/20 08:15 Folic Acid 1 Mg Tablet PO 1 mg DAILY RASHID Administration
--- NOTE | 2020-06-05 16:50 | PM.IMPN ---
Progress Note: A&P Assessment and Plan (1) Weakness generalized: Code(s): R53.1 - Weakness Status: Acute Assessment and Plan: Seems to be chronic generalized weakness that has been getting worse over last 1 year that has to do with her multiple back surgeries and deconditioning over time. PT/OT consult and recommend her going to an SNF for further therapy. Family is looking into [facility] recommends getting MRI Cervical and Lumbar with/without contrast which showed mild cervical spondylosis which is stable from 09/23/2011 and lumbar spine showed edema, enhancement in the T11 compression in T12 treated burst fractures. L4-L5 grade 1 anterior listhesis and moderate right neural foraminal stenosis. I called the patient's neurosurgeon at [facility], Dr. Felice Luna who knows the patient well and saw her a few months ago. At that time he states she had become gradually weaker and she was found to have lumbar compression fractures which were treated with kyphoplasty. I went over the patient's MRI results with him and he recommended due to her T11 and T12 compression fractures that she have a TLSO brace placed for support and help with pain control. He has an appointment set up for her already scheduled on 06/08/2020 and he would like for a follow-up at that time for further evaluation and she may need to be sent for another kyphoplasty for her compression fractures. He also recommended workup for osteoporosis due to her multiple spinal fractures and starting her on vitamin D. He also recommended a bone scan which can be completed as an outpatient by her primary care provider. We are ordering the TLSO brace from [facility] which will take 24 hours as well as further testing for osteoporosis Hopefully tomorrow if we get the back brace she can then be discharged to her SNF for further evaluation, PT/OT and make sure that she follows up with her neurosurgeon on . (2) Burst fracture of T12 vertebra: Code(s): S22.081A - Stable burst fracture of T11-T12 vertebra, initial encounter for closed fracture Status: Acute Assessment and Plan: Chronic. S/p multiple surgeries See under generalized weakness. (3) Hyponatremia: Code(s): E87.1 - Hypo-osmolality and hyponatremia Status: Chronic Assessment and Plan: Could be secondary to anorexia versus dehydration. She was receiving IV fluids which improved her sodium to 135 today. Nephrology is on board and recommends discontinuing IV fluids at this time Nephrology found her cortisol level was borderline and is doing a Cortrosyn stim test. Will recheck BMP in the morning and ensure sodium does not drop significantly. Continue monitoring. Appreciate Nephrology note. (4) Unsteady gait: Code(s): R26.81 - Unsteadiness on feet Status: Acute Assessment and Plan: Could be secondary to chronic back pain in issues from surgeries verses deconditioning verses new acute changes to her lower back or cervical spine. PT/OT continue working with the patient Continue monitoring. (5) Hypokalemia: Code(s): E87.6 - Hypokalemia Status: Acute Assessment and Plan: Potassium was low normal at 3.4 today. Mag was normal at 1.8. Will recheck Potassium and magnesium in the morning. Most likely due to dilution. (6) Mild reactive airways disease: Qualifiers: Asthma persistence: unspecified Qualified Code(s): J45.909 - Unspecified asthma, uncomplicated Code(s): J45.909 - Unspecified asthma, uncomplicated Status: Acute Assessment and Plan: Stable. Continue inhalers as needed (7) Abdominal pain:
[2020-06-05 18:28] LABS: Vitamin D 25 Hydroxy 18.4 ng/mL
[2020-06-05] MEDS: traMADol HCL (*CRX) 50 MG TABLET PO (20:07)
[2020-06-05 22:00] VITALS: BP 135/82; PULSE 85; RESP 18; TEMP 36.9; O2SAT 97
[2020-06-06 06:00] VITALS: BP 132/87; PULSE 74; RESP 18; TEMP 37.1; O2SAT 98
[2020-06-06 06:04] LABS: Potassium 3.7 mmol/L (3.4-5.0)
[2020-06-06 06:11] LABS: Anion Gap 4 mmol/L (8-16); Blood Urea Nitrogen 13 mg/dL (7-17); Calcium 8.8 mg/dL (8.4-10.2); Carbon Dioxide 27 mmol/L (22-30); Chloride 106 mmol/L (98-107); Estimated CRCL calculation 73 ml/min; Estimated Glomerular Filt Rate > 60; Glucose 87 mg/dL (65-105); Magnesium 1.8 mg/dL (1.6-2.3); Sodium 137 mmol/L (137-145)
[2020-06-06] MEDS: polyethylene glycoL 3350 17 GM POWD.PACK PO (09:00)
[2020-06-06] MEDS: PANTOPRAZOLE 40 MG TABLET PO (09:00)
[2020-06-06] MEDS: CHOLECALCIFEROL 1,000 UNITS TABLET 1000 UNITS PO (09:00)
[2020-06-06] MEDS: FOLIC ACID 1 MG TABLET PO (09:00)
[2020-06-06] MEDS: DOCUSATE SODIUM 100 MG CAPSULE PO (09:00)
[2020-06-06] MEDS: MULTIVITAMINS THERAPEUTIC TAB (*BKC) 1 TABLET PO (09:00)
[2020-06-06] MEDS: DOXYCYCLINE HYCLATE 100 MG TABLET PO (09:00)
[2020-06-06] MEDS: FERROUS SULFATE 324 MG TABLET PO (09:00)
--- NOTE | 2020-06-06 10:30 | PM.DS ---
DS: Admitting Diagnosis Admitting Diagnosis Admitting Diagnosis: weakness DS: Discharge Diagnosis Discharge Diagnosis (1) Weakness generalized: Code(s): R53.1 - Weakness Status: Acute Assessment and Plan: Seems to be chronic generalized weakness that has been getting worse over last 1 year that has to do with her multiple back surgeries and deconditioning over time. PT/OT consulted and recommend SNF for further therapy. Neurology consulted and recommended MRI cervical/lumbar spine w/wo contrast which showed mild cervical spondylosis, stable from 09/23/2011 and lumbar spine showed edema and enhancement in the T11 compression and T12 treated burst fractures; this was discussed with Dr. Luna who knows patient well and recommended a TLSO brace which was delivered today; He recommended f/u with him on 06/08/20 for further management. Today, patient states she is feeling better. D/c today to SNF for PT/OT F/u with Dr. Luna on 06/08/20 F/u with PCP (2) Burst fracture of T12 vertebra: Code(s): S22.081A - Stable burst fracture of T11-T12 vertebra, initial encounter for closed fracture Status: Acute Assessment and Plan: Chronic. S/p multiple surgeries. see above a/p (3) Hyponatremia: Code(s): E87.1 - Hypo-osmolality and hyponatremia Status: Chronic Assessment and Plan: Could be secondary to anorexia versus dehydration. Na 137 today. Nephrology following and appreciate recommendations. Nephrology found her cortisol level was borderline and is doing a Cortrosyn stim test. Will recheck BMP later this week Will do 1200 mL fluid restriction per Nephrology recommendations F/u with PCP (4) Unsteady gait: Code(s): R26.81 - Unsteadiness on feet Status: Acute Assessment and Plan: Could be secondary to chronic back pain in issues from surgeries verses deconditioning verses new acute changes to her lower back or cervical spine. PT/OT SNF placement F/u with PCP and Dr. Luna (5) Hypokalemia: Code(s): E87.6 - Hypokalemia Status: Acute Assessment and Plan: Potassium was low normal at 3.7 today. Mag was normal at 1.8. Will do BMP later this week for further evaluation. (6) Mild reactive airways disease: Qualifiers: Asthma persistence: unspecified Qualified Code(s): J45.909 - Unspecified asthma, uncomplicated Code(s): J45.909 - Unspecified asthma, uncomplicated Status: Acute Assessment and Plan: Stable. Continue inhalers as needed (7) Abdominal pain: Qualifiers: Abdominal location: generalized Qualified Code(s): R10.84 - Generalized abdominal pain Code(s): R10.9 - Unspecified abdominal pain Status: Acute Assessment and Plan: Stable, no pain today. Tolerating PO today. F/u with PCP (8) Urinary retention: Code(s): R33.9 - Retention of urine, unspecified Status: Acute Assessment and Plan: Patient and state that prior to coming to the hospital she was urinating just once a day and that this has been going on for the last 6 months or so. Sommers was placed during stay. Will instruct SNF facility to perform voiding trial in 1-2 days and to follow up with Urology for further testing if needed. (9) History of hypertension: Code(s): Z86.79 - Personal history of other diseases of the circulatory system Status: Acute Assessment and Plan: Blood pressure has stable - 130s sys today. F/u with PCP (10) Vi
[2020-06-06 14:18] LABS: Creatinine, Random Urine 30 mg/dL (20-275); Total Protein/Creatinine Ratio 167 mg/g creat (21-161)
[2020-06-06 16:27] LABS: Chloride Rand Ur 76 mmol/L (32-290); Chloride/Creatinine Rand Ur 253 (38-318); Creatinine Random Urine 30 mg/dL (20-275)
--- NOTE | 2020-06-06 20:57 | P.PNNP_ITS ---
Progress Note: A&P Assessment and Plan (1) Hyponatremia: Code(s): E87.1 - Hypo-osmolality and hyponatremia Status: Chronic Assessment and Plan: * chronic issue/problems since earlier this year (appears to be have started/noted in October 2019) * CXR and head CT is negative * The patient is up-to-date for cancer screening except that she does have a colonoscopy which is pending. * TSH okay. * Cortisol level borderline low. Considering her weakness and anorexia will check a Cortrosyn stim. * SPEP is pending. * Etiology could be pre renal azotemia from her anorexia, or possibly something going on in the colon. * Narcotics could be playing a role as well or possibly chronic pain. * Sodium level has improved. Currently is now normal. * okay to drink a little more fluid * She can go home and any time from the kidney standpoint * she can follow up in my office or follow-up with her primary care physician for treatment of hyponatremia going forward. (2) Generalized weakness: Code(s): R53.1 - Weakness Status: Acute Assessment and Plan: * Getting physical therapy (3) Anorexia: Code(s): R63.0 - Anorexia Status: Acute (4) Anemia: Code(s): D64.9 - Anemia, unspecified Status: Acute Assessment and Plan: * T sat, B12, folate are okay. * Hemoglobin stable last check (5) Benign essential hypertension: Code(s): I10 - Essential (primary) hypertension Status: Chronic Assessment and Plan: * BP well controlled * continue current medications * avoid diuretics going forward. If pushed in this regard for edema, try only loop diuretics once a day and follow sodium closely Subjective Date/time seen: 06/06/20 20:52 Interval history: Patient is alert. Eating and drinking well. not thirsty especially Review of Systems Cardiovascular: Cardiovascular: Reports no additional cardiovascular complaints Respiratory: Respiratory: Reports no additional respiratory complaints Gastrointestinal: Gastrointestinal: Reports no additional gastrointestinal complaints Genitourinary: Genitourinary: Reports no additional female genitourinary complaints Exam Narrative: Exam Narrative: WDWN in NAD skin no rash or sq ndules head ncat lungs clear bilaterally cor reg no rub or gallop abd BS+ nontender ext no edema or cyanosis. Objective Data Vital Signs Vital Signs: Vital Signs - 24 hr 06/05/20 22:00 06/06/20 06:00 Temperature 36.9 C 37.1 C Pulse Rate 85 74 Respiratory Rate 18 18 Blood Pressure 135/82 132/87 Pulse Oximetry 97 98 Intake/Output Intake/Output: Intake & Output 06/03/20 06/04/20 06/05/20 06/06/20 23:59 23:59 23:59 23:59 Intake Total 3790 2080 1370 340 Output Total 2200 650 1050 200 Balance 1590 1430 320 140 Meds/Results Radiology Results: ITS Impressions Head CT 06/01/20 20:58 IMPRESSION: 1. No acute intracranial findings. 2. Chronic age related findings. 3. Nearly opacified left maxillary sinus. Chest X-Ray 06/02/20 13:27 IMPRESSION: 1. No acute cardiopulmonary disease. Brain MRI 06/02/20 18:09
--- NOTE | 2020-06-06 20:57 | PM.PNNEP ---
Progress Note: A&P Assessment and Plan (1) Hyponatremia: Code(s): E87.1 - Hypo-osmolality and hyponatremia Status: Chronic Assessment and Plan: chronic issue/problems since earlier this year (appears to be have started/noted in October 2019) CXR and head CT is negative The patient is up-to-date for cancer screening except that she does have a colonoscopy which is pending. TSH okay. Cortisol level borderline low. Considering her weakness and anorexia will check a Cortrosyn stim. SPEP is pending. Etiology could be pre renal azotemia from her anorexia, or possibly something going on in the colon. Narcotics could be playing a role as well or possibly chronic pain. Sodium level has improved. Currently is now normal. okay to drink a little more fluid She can go home and any time from the kidney standpoint she can follow up in my office or follow-up with her primary care physician for treatment of hyponatremia going forward. (2) Generalized weakness: Code(s): R53.1 - Weakness Status: Acute Assessment and Plan: Getting physical therapy (3) Anorexia: Code(s): R63.0 - Anorexia Status: Acute (4) Anemia: Code(s): D64.9 - Anemia, unspecified Status: Acute Assessment and Plan: T sat, B12, folate are okay. Hemoglobin stable last check (5) Benign essential hypertension: Code(s): I10 - Essential (primary) hypertension Status: Chronic Assessment and Plan: BP well controlled continue current medications avoid diuretics going forward. If pushed in this regard for edema, try only loop diuretics once a day and follow sodium closely Subjective Date/time seen: 06/06/20 20:52 Interval history: Patient is alert. Eating and drinking well. not thirsty especially Review of Systems Cardiovascular: Cardiovascular: Reports no additional cardiovascular complaints Respiratory: Respiratory: Reports no additional respiratory complaints Gastrointestinal: Gastrointestinal: Reports no additional gastrointestinal complaints Genitourinary: Genitourinary: Reports no additional female genitourinary complaints Exam Narrative: Exam Narrative: WDWN in NAD skin no rash or sq ndules head ncat lungs clear bilaterally cor reg no rub or gallop abd BS+ nontender ext no edema or cyanosis. Objective Data Vital Signs Vital Signs: Vital Signs - 24 hr 06/05/20 22:00 06/06/20 06:00 Temperature 36.9 C 37.1 C Pulse Rate 85 74 Respiratory Rate 18 18 Blood Pressure 135/82 132/87 Pulse Oximetry 97 98 Intake/Output Intake/Output: Intake & Output 06/03/20 06/04/20 06/05/20 06/06/20 23:59 23:59 23:59 23:59 Intake Total 3790 2080 1370 340 Output Total 2200 650 1050 200 Balance 1590 1430 320 140 Meds/Results Radiology Results: ITS Impressions Head CT 06/01/20 20:58 IMPRESSION: 1. No acute intracranial findings. 2. Chronic age related findings. 3. Nearly opacified left maxillary sinus. Chest X-Ray 06/02/20 13:27 IMPRESSION: 1. No acute cardiopulmonary disease. Brain MRI 06/02/20 18:09 IMPRESSION: 1. No acute intracranial findings. 2. Chronic age related findings. Cervical Spine MRI 06/05/20 15:44 IMPRESSION: 1. Mild cervical spondylosis, stable from 09/23/2011. Lumbar Spine MRI 06/05/20 15:45 IMPRESSION: 1. Edema, enhancement in the T11 compression and T12 treated burst fractures. 2. L4-5 grade 1 anterolisthesis, moderate right neural foraminal stenosis. Labs Labs: Laboratory Results - last 24 hr 06/02/20 06/02/20 06/06/20 15:59 15:59 05:33 Sodium 137 Potassium 3.7 Chloride 106 Carbon Dioxide 27 Anion Gap 4 L BUN 13 Creatinine 0.60 L Estim Creat Clear Calc 73 Estimated GFR > 60 Glucose 87 Calcium 8.8 Magnesium 1.8 Ur Random Creatinine 30 30 U Random Total Protein 5 Ur Random Chloride 76
[2020-06-06 22:50] LABS: Albumin 3.2 g/dL (3.8-4.8); Alpha 1 Globulin 0.4 g/dL (0.2-0.3); Alpha 2 Globulin 0.8 g/dL (0.5-0.9); Beta 1 Globulin 0.5 g/dL (0.4-0.6); Gamma Globulin 0.8 g/dL (0.8-1.7); Protein, Total 5.9 g/dL (6.1-8.1)
[2020-06-07 01:51] LABS: Aldolase 4.9 U/L (<=8.1)
[2020-06-09 04:43] LABS: Ionized Calcium 5.3 mg/dL (4.8-5.6)
== END 2020-06-06 12:55 | DRG 552 ==
LOC: ANHED 21:44 → ANH3MEDSUR 23:41
PROVIDERS: Internal Medicine; Internal Medicine Nephrology; Physician Assistant; Admitting Provider Internal Medicine; Emergency Provider Nurse Practitioner; PCP Internal Medicine; Visit Provider Physician Assistant
DX: S22.081A Stable burst fracture of T11-T12 vertebra, initial encounter for closed fracture (principal); E87.1 Hypo-osmolality and hyponatremia; R53.1 Weakness; M47.892 Other spondylosis, cervical region; G89.29 Other chronic pain; M54.89 Other dorsalgia; Z23 Encounter for immunization; J45.909 Unspecified asthma, uncomplicated; E87.6 Hypokalemia; R26.81 Unsteadiness on feet; R10.84 Generalized abdominal pain; R33.9 Retention of urine, unspecified; N31.9 Neuromuscular dysfunction of bladder, unspecified; E53.9 Vitamin B deficiency, unspecified; E55.9 Vitamin D deficiency, unspecified; I10 Essential (primary) hypertension; F41.8 Other specified anxiety disorders; L30.9 Dermatitis, unspecified; K21.9 Gastro-esophageal reflux disease without esophagitis; G25.81 Restless legs syndrome; D50.9 Iron deficiency anemia, unspecified; R63.0 Anorexia; Z98.84 Bariatric surgery status; Z68.22 Body mass index [BMI] 22.0-22.9, adult; Z85.828 Personal history of other malignant neoplasm of skin; Z90.49 Acquired absence of other specified parts of digestive tract; Z98.1 Arthrodesis status
CPT/HCPCS: 36415; 70450; 70551; 71045; 72156; 72158; 80048; 80053; 80069; 81001; 81050; 82085; 82306; 82330; 82436; 82533; 82550; 82570; 82607; 82728; 82746; 83540; 83550; 83735; 83930; 83935; 84134; 84155; 84156; 84165; 84166; 84207; 84252; 84295; 84300; 84425; 84443; 85025; 86335; 90471; 90653; 93005; 96360; 97110; 97162; 97166; 97530; 99285; A9270; A9577; G0008; J0834; J7030; J7040

== ENCOUNTER 2020-06-19 04:16 | Emergency (ER) | payer MEDICARE, OTHER, SELFPAY ==
--- NOTE | ~2020-06-19 | CT_ITS ---
EXAMINATION: CT cervical spine wo con DATE: 06/19/2020 05:01 INDICATION: Neck pain TECHNIQUE: Computed tomography (CT) of the cervical spine was performed without intravenous contrast. The dose-length product (DLP) was 214.10 mGy-cm. Automated exposure control and iterative reconstruc tion technique were employed. COMPARISON: 06/05/2020 FINDINGS: There is no fracture, dislocation, or subluxation. The vertebral body heights are normal. T here is mild loss of intervertebral disc space height at C2-3 with bilateral facet fusion. Mild to mo derate facet and uncovertebral joint osteoarthritis is seen throughout the remainder of the cervical spine. The odontoid is intact. The prevertebral soft tissues are normal. There is near complete opaci fication of the left maxillary sinus. IMPRESSION: 1. Mild cervical spondylosis without acute findings or significant interval change. Reviewed, dictated and finalized at location A. LE CHECKER IMPRESSION: 1. Mild cervical spondylosis without acute findings or significant interval nancy nge.
--- NOTE | ~2020-06-19 | CT_ITS ---
EXAMINATION: CT brain wo con INDICATION: Headache COMPARISON: 06/01/2020 TECHNIQUE: Standard unenhanced head CT. The dose-length product (DLP) was 605.33 mGy-cm. The mA was a djusted according to patient size. Iterative reconstruction technique was employed. FINDINGS: There is no acute intraparenchymal hemorrhage. No evidence of mass lesion. No evidence of a cute infarction. There is mild periventricular and subcortical hypodensity probably related to small vessel ischemic disease. There is mild prominence of the sulci and ventricles related to cerebral atr ophy. Intracranial calcified cerebral atherosclerosis is noted. There are no extra-axial collections. There is no mass effect or midline shift. The orbits and soft tissues are unremarkable. There is ne ar complete opacification of the left maxillary sinus with changes of maxillary antrostomy. IMPRESSION: 1. No acute intracranial abnormality. 2. Age related findings. Reviewed, dictated and finalized at location A. DY DEVELOPER
[2020-06-19 04:17] VITALS: BP 150/81; PULSE 96; RESP 18; TEMP 36.4; O2SAT 99
--- NOTE | 2020-06-19 04:22 | ED.HEATRA ---
HPI - Head Injury General Chief complaint: Head Injury Stated complaint: fall from bed History of Present Illness HPI Narrative: Brought in by EMS fro [facility] home after a fall. She reportedly rolled out of bed this evening while she was sleeping. She struck her head and sustained a small laceration above the left eye. EMS reports logan she was also complaining of pain in multiple other areas. She tells me that she only has pain in her head. Related Data Home Medications Medication Instructions Recorded Confirmed multivitamin 1 tablet PO DAILY 06/22/19 06/02/20 ibuprofen 200 mg PO Q6-8H PRN 01/27/20 06/02/20 polyethylene glycol 3350 17 gram 17 gm PO DAILY 04/14/20 06/02/20 oral powder packet alprazolam 0.25 mg PO DIRECTED PRN 05/12/20 06/02/20 albuterol sulfate [Ventolin HFA] 2 puff INHALATION Q4-6H PRN 06/02/20 06/02/20 lorazepam 1 - 2 mg PO HS 06/02/20 06/02/20 Allergies Allergy/AdvReac Type Severity Reaction Status Date / Time tetanus immune globulin Allergy Severe FEVER, FLU Verified 06/05/20 11:30 SX. cefaclor Allergy Unknown Hives Verified 06/05/20 11:30 tetanus toxoid, adsorbed Allergy Unknown Unknown Verified 06/05/20 11:30 Tetanus Vaccines and Toxoid Allergy Unknown Unknown Verified 06/05/20 11:30 adhesive tape AdvReac Unknown Other Verified 06/05/20 11:30 Review of Systems Review of Systems: ROS unobtainable: Yes unobtainable due to mental status Cardiovascular: Cardiovascular: Denies chest pain Respiratory: Respiratory: Denies dyspnea Gastrointestinal: Gastrointestinal: Denies nausea Neurologic: Reports headache(s) PMFSH Past Medical History Medical History Abdominal pain Anorexia Anxiety with depression Basal cell carcinoma of nose Benign essential hypertension Benign fundic gland polyps of stomach (~05/2017) BMI 25.0-25.9,adult Burst fracture of T12 vertebra Chronic nausea Chronic sinusitis Debility Diverticulosis Eczema Elevated homocysteine Elevated LFTs Fatigue Follow up Gastroesophageal reflux disease History of hypertension Hyperplastic polyp of sigmoid colon Hyponatremia Iron deficiency anemia Mild reactive airways disease Physical debility Restless leg syndrome Sinusitis SOB (shortness of breath) Unsteady gait Vitamin B12 deficiency Vitamin D deficiency Weakness Weight loss Surgical History Surgical History History of appendectomy History of cholecystectomy History of exploratory laparotomy (~10/2003) Removal of anterior abdominal wall mass (benign fibroid), adhesiolysis, and bilateral salpingo-oophorectomy with bladder repair. History of gastric bypass History of lumbar fusion History of vaginal hysterectomy Status post functional endoscopic sinus surgery And bilateral maxillary antrostomy. Status post surgical removal of malignant neoplasm of skin Excision basal cell carcinoma from the bridge of the nose. Family History Family History Sibling Family history of lung cancer Patient's sister is Father Family history of malignant melanoma Acute myocardial infarction Family history of throat cancer Family history of congestive heart failure Family history of type 1 diabetes mellitus Mother Family history of lung cancer Family history of congestive heart failure Family history of type 1 diabetes mellitus Other Family history of malignant neoplasm Social History Social History Social History: Surrogate decision maker: Vernon Fletcherien, . Code status: Full code. Smoking status: Never smoker Second hand tobacco smoke exposure: No Alcohol intake: current Drinks per week: 3 Substance use: never Additional living arrangements comments: Lives with spouse in [place]. Their 13-year-old grandson
[2020-06-19 05:00] VITALS: BP 133/76; PULSE 91; O2SAT 95
[2020-06-19 05:29] LABS: Add Urine Microscopic? YES; Appearance Urine Cloudy (Clear); Bacteria Urine Trace /hpf; Bilirubin Urine Negative (Negative); Blood Urine 1+ (Negative); Color Urine Yellow (Yellow); Glucose Urine UA Negative (Negative); Ketones Urine Negative (Negative); Leukocyte Esterase Ur 2+ LEU/UL (Negative); Nitrate Urine Negative (Negative); Protein Urine Negative (Negative); Specific Grav Ur 1.008 (1.001-1.035); Squamous Epithelial Cell Urine Few /hpf (Few); Urobilinogen Urine Negative mg/dL (<2.0); WBC Urine 51-75 /hpf
[2020-06-19 06:10] VITALS: BP 145/80; PULSE 95; RESP 18; O2SAT 98
[2020-06-19] MEDS: NITROFURANTOIN MONOHYD MACROCR 100 MG CAP PO (06:13)
--- NOTE | 2020-06-19 06:28 | PC.NURSE ---
[facility] accepted return to alf ETA 08:00 Trip # [id number]
--- NOTE | 2020-06-19 06:34 | PC.NURSE ---
Discharge report called to Marylin CARRASCO at [facility] ([place]) Transport called ETA [phone] Patient watching TV, Call dang in reach
--- NOTE | 2020-06-19 07:22 | PC.NURSE ---
Assumed care of pt, pt is alert and upright. Discussed POC. Will order breakfast tray for pt. VSS.
[2020-06-19 07:23] VITALS: BP 115/86; PULSE 98; RESP 16; O2SAT 98
--- NOTE | 2020-06-19 07:29 | PC.NURSE ---
Dietary tray ordered for pt, spoke to Sawyer.
--- NOTE | 2020-06-19 09:04 | PC.NURSE ---
du was called at 0818 to find out the eta. francesco new eta was [phone]. called again at 0905 and was told the eta is at 1030 if there is no more 911 calls
--- NOTE | 2020-06-19 09:18 | PC.NURSE ---
[facility] was contacted and did accept to transfer patient home. eta [id number]
[2020-06-19 09:49] VITALS: BP 122/84; PULSE 68; RESP 19; O2SAT 97
--- NOTE | 2020-06-19 10:00 | PC.NURSE ---
[facility] has arrived.
== END 2020-06-19 10:16 ==
PROVIDERS: Emergency Provider Emergency Medicine; PCP Internal Medicine
DX: S01.112A Laceration without foreign body of left eyelid and periocular area, initial encounter (principal); S09.90XA Unspecified injury of head, initial encounter; F41.8 Other specified anxiety disorders; I10 Essential (primary) hypertension; K21.9 Gastro-esophageal reflux disease without esophagitis; J45.909 Unspecified asthma, uncomplicated; G25.81 Restless legs syndrome; E53.8 Deficiency of other specified B group vitamins; E55.9 Vitamin D deficiency, unspecified; Z98.84 Bariatric surgery status; Z98.1 Arthrodesis status; Z85.828 Personal history of other malignant neoplasm of skin; W06.XXXA Fall from bed, initial encounter
CPT/HCPCS: 70450; 72125; 81001; 87086; 87088; 99284; A9270

== ENCOUNTER 2020-07-17 11:19 | Outpatient (CLI) | payer MEDICARE, OTHER, SELFPAY ==
[2020-07-17 12:14] LABS: Albumin Level 3.3 g/dL (3.5-5.1); Anion Gap 7 mmol/L (8-16); Blood Urea Nitrogen 6 mg/dL (7-17); Calcium 8.6 mg/dL (8.4-10.2); Carbon Dioxide 29 mmol/L (22-30); Chloride 104 mmol/L (98-107); Estimated Glomerular Filt Rate > 60; Glucose 109 mg/dL (65-105); Phosphorus 3.7 mg/dL (2.5-4.5); Potassium 3.4 mmol/L (3.4-5.0); Sodium 140 mmol/L (137-145)
== END 2020-07-17 11:20 | disposition home or self-care (01) ==
LOC: ANHLAB 11:23
PROVIDERS: PCP Internal Medicine; Visit Provider Internal Medicine Nephrology
DX: E87.1 Hypo-osmolality and hyponatremia (principal)
CPT/HCPCS: 36415; 80069; 83930

== ENCOUNTER 2020-07-28 06:51 | Outpatient (CLI) | payer MEDICARE, OTHER, SELFPAY ==
--- NOTE | ~2020-07-28 | CT_ITS ---
EXAMINATION: CT lumbar spine wo con DATE: 07/28/2020 08:17 INDICATION: Low back pain. TECHNIQUE: Computed tomography (CT) of the lumbar spine was performed without intravenous contrast. A utomated exposure control and iterative reconstruction technique were employed. The dose-length produ ct was 886.31 mGy-cm. COMPARISON: Lumbar spine MRI 06/05/2020, chest single view 06/02/2020 FINDINGS: L5 is a transitional segment. There is 5 degrees levocurvature of lumbar spine. There is 6 mm anterolisthesis of L4 on L5. There are changes of anterior and posterior fusion procedures at L4-L 5 with interbody devices and pedicle screws. There are chronic bilateral L4 pars defects. There is a chronic burst fracture of T12 with 3/5 loss of height, changes of vertebroplasty, and retropulsion of bone 5 mm into central spinal canal. Partially visualized is a subacute burst fracture of T11. Inter vertebral disc heights are normal. The following disc levels are specifically discussed: L1-L2: The disc is bulging. There is mild bilateral facet joint osteoarthritis. There is mild bilater al neural foraminal stenosis. There is mild central canal stenosis. L2-L3: The disc is bulging. There is mild bilateral facet joint osteoarthritis. There is mild bilater al neural foraminal stenosis. There is mild central canal stenosis. L3-L4: The disc is bulging. There is mild bilateral facet joint hypertrophy. There is mild bilateral neural foraminal stenosis. There is mild central canal stenosis. L4-L5: There is no facet joint hypertrophy. There is mild right neural foraminal stenosis. There is n o central canal stenosis. There are changes of posterior decompression. L5-S1: The disc does not extend beyond the endplate margin. There is severe bilateral facet joint ost eoarthritis. There is no neural foraminal stenosis. There is no central canal stenosis. IMPRESSION: 1. Partially visualized subacute T11 burst fracture. 2. Stable mild lumbar spondylosis. 3. Anterior and posterior fusion procedures at L4-L5. Reviewed, dictated and finalized at location B. L TELEPHONE OPERATOR
--- NOTE | 2020-08-03 10:29 | WPDNEUROLOGY ---
Neurology EEG Report General Information Date of Study: 07/28/20 TEST EEG DIAGNOSIS confusion CONDITION OF RECORDING awake drowsy and sleep EEG NUMBER [id number] CLINICAL HISTORY patient reported she has been having a lot of confusion in the last couple of months EEG DESCRIPTION basic resting occipital frequency consists of moderate amount of medium voltage 8 to 10 hertz per 2nd alpha admixed with low-voltage 15 to 18 hertz per 2nd beta activity low-voltage beta activity seen diffusely admixed with waxing and waning posterior alpha rhythm. Throughout the tracing right-sided low to medium voltage fast activity seen admixed with the muscle artifacts. Hyperventilation not done. Photic stimulation produced normal drive but again with the persistence of right-sided muscle artifact. Non paroxysmal. Nonfocal. Nonlateralizing. IMPRESSION No significant abnormalities noted
== END 2020-07-28 06:52 | disposition home or self-care (01) ==
PROVIDERS: PCP Internal Medicine; Visit Provider Psychiatry & Neurology Neurology
DX: R41.0 Disorientation, unspecified (principal); M47.896 Other spondylosis, lumbar region; Z98.1 Arthrodesis status
CPT/HCPCS: 72131; 95816

== ENCOUNTER 2020-07-30 17:11 | Inpatient (IN) | payer MEDICARE, OTHER, SELFPAY ==
[2020-07-30] VITALS (7 sets, daily range): BP systolic 100–147; BP diastolic 60–96; PULSE 94–112; RESP 14–24; TEMP 36.4; O2SAT 97–100; BMI 24.0
--- NOTE | ~2020-07-30 | XR_ITS ---
EXAMINATION: XR chest 1V portable INDICATION: Shortness of breath, cough and dizziness TECHNIQUE: Portable AP chest at 1732 hours COMPARISON: 06/02/2020 FINDINGS: Patchy opacities have developed throughout the right lung and in the left lung base. No ple ural effusion or pneumothorax is identified. The cardiomediastinal silhouette is normal. Vertebroplas ty change is noted in the lower thoracic spine. IMPRESSION: 1. Patchy bilateral airspace opacities, right greater than left, likely pneumonia. Reviewed, dictated and finalized at location A. FARM HELPER IMPRESSION: 1. Patchy bilateral airspace opacities, right greater than left, likely pneumon ia.
--- NOTE | ~2020-07-30 | CT_ITS ---
EXAMINATION: CT brain wo con INDICATION: Altered mental status COMPARISON: 06/19/2020 TECHNIQUE: Standard unenhanced head CT. The dose-length product (DLP) was 605.33 mGy-cm. The mA was a djusted according to patient size. Iterative reconstruction technique was employed. FINDINGS: There is no acute intraparenchymal hemorrhage. No evidence of mass lesion. No evidence of a cute infarction. There is mild periventricular and subcortical hypodensity probably related to small vessel ischemic disease. There is mild prominence of the sulci and ventricles related to cerebral atr ophy. Intracranial calcified cerebral atherosclerosis is noted. There are no extra-axial collections. There is no mass effect or midline shift. The orbits and soft tissues are unremarkable. Again noted is chronic left maxillary sinusitis with changes of maxillary antrostomy. IMPRESSION: 1. No acute intracranial abnormality. 2. Age related findings. Reviewed, dictated and finalized at location A. LY MEDICINE PHYSICIAN ASSISTANT
--- NOTE | ~2020-07-30 | CT_ITS ---
EXAMINATION: CTA chest PE protocol DATE: 07/30/2020 19:12 INDICATION: Shortness of breath TECHNIQUE: Computed tomography angiography (CTA) of the chest was performed with 100 mL Omnipaque-350 intravenous contrast timed to evaluate the pulmonary arteries. Coronal maximum intensity projection 3D-reconstructions were created by the technologist. The dose-length product (DLP) was 450.24 mGy-cm. Automated exposure control and iterative reconstruction technique were employed. COMPARISON: None. FINDINGS: The pulmonary arteries are well-opacified. Respiratory motion artifact limits evaluation of peripheral subsegmental pulmonary arterial branches. No pulmonary embolus is identified. There are g roundglass opacities of the right upper lobe and to a lesser extent in the lower lobes. No pleural ef fusion or pneumothorax is identified. No pathologically enlarged thoracic lymph nodes are identified. The heart size is normal. There are chronic burst fractures of T11 and T12 with vertebroplasty valdivia e seen at T12. IMPRESSION: 1. No pulmonary embolism identified, sensitivity slightly limited by motion artifact. 2. Airspace opacities of the right upper lobe and lung bases, likely pneumonia. Reviewed, dictated and finalized at location A. NEERING DESIGN MANAGER IMPRESSION: 1. No pulmonary embolism identified, sensitivity slightly limited by motion art ifact. 2. Airspace opacities of the right upper lobe and lung bases, likely pneumonia.
--- NOTE | 2020-07-30 17:20 | ECG_ITS ---
Measurements Intervals Central Rate: 110 P: 27 DC: 154 QRS: -21 QRSD: 86 T: 41 QT: 360 QTc: 487 Interpretive Statements SINUS TACHYCARDIA BASELINE WANDER- V3-V4 ABNORMAL ECG Electronically Signed On 07-31-2020 6:56:05 TRAINING AND DEVELOPMENT MANAGER by Marciano Dominguez D.O.
[2020-07-30 17:42] LABS: Basophils Percent Auto 0.5 % (0.2-1.2); Eosinophils Percent Auto 0.4 % (0-4.4); Hematocrit 34.5 % (37.0-47.0); Immature Granulocyte Absolute 0.03 K/mm3 (0.00-0.031); Immature Granulocyte Percent A 0.4 % (0-0.5); Lymphocytes Absolute Auto 0.99 K/mm3 (0.9-3.2); Lymphocytes Percent Auto 13.2 % (18.3-44.2); Mean Corpuscular HGB Conc 31.9 g/dl (32-36); Mean Corpuscular Hemoglobin 29.5 pg (26-34); Mean Corpuscular Volume 92.5 fl (80-100); Mean Platelet Volume 10.7 fl (7.4-10.4); Monocytes Absolute Auto 0.6 K/mm3 (0.1-0.6); Neutrophils Absolute Auto 5.8 K/mm3 (1.3-6.7); Neutrophils Percent Auto 77.5 % (45.5-73.1); Platelet Count Result 409 k/mm3 (150-375); Red Blood Count 3.73 M/mm3 (4.2-5.4); Red Cell Distribution Width 18.2 % (11.5-14.5); White Blood Count 7.5 K/mm3 (4.5-10.0)
[2020-07-30 17:47] LABS: Add Urine Microscopic? YES; Appearance Urine Clear (Clear); Bilirubin Urine Negative (Negative); Blood Urine Negative (Negative); Color Urine Yellow (Yellow); Glucose Urine UA Negative (Negative); Ketones Urine Negative (Negative); Leukocyte Esterase Ur 1+ LEU/UL (Negative); Mucus Urine Rare /lpf; Nitrate Urine Negative (Negative); Protein Urine Negative (Negative); Specific Grav Ur 1.011 (1.001-1.035); Squamous Epithelial Cell Urine Many /hpf (Few)
[2020-07-30 17:51] LABS: Alveolar/Arterial O2 Gradient 27.6 mmHg; Base Excess ABG 1.7 mEq/l (+/-2.0); Fractional Inspired Oxygen 21 %; HCO3 ABG 21.1 mEq/l (22.0-26.0); Oxygen Content ABG 15.4 %vol (16.0-22.0); Oxygen Saturation ABG 98.5 % (95.0-100.0); Oxyhemoglobin 97.1 % THb (90.0-100.0); PCO2 ABG 19.9 mmHg (35.0-45.0); PO2 ABG 98.3 mmHg (80.0-100.0); PO2 FiO2 Ratio Arterial Blood 4.68 %; Total Hemoglobin 11.2 g/dL (12.0-18.0)
[2020-07-30 17:52] LABS: Prothrombin Time 13.3 Seconds (11.1-14.7)
[2020-07-30 17:52] LABS: Device ROOM AIR; Modified Allen's Test Pass; Site Drawn RIGHT RADIAL; pH ABG 7.643 (7.350-7.450)
[2020-07-30 17:53] LABS: Partial Thromboplastin Time 33.3 SECONDS (22.3-36.8)
[2020-07-30 17:56] LABS: D Dimer 0.78 ug/mL (<0.48)
[2020-07-30 18:01] LABS: Albumin Level 3.6 g/dL (3.5-5.1); Alkaline Phosphatase 111 U/L (38-126); Anion Gap 12 mmol/L (8-16); Aspartate Amino Transferase 24 U/L (14-36); Bilirubin,Total 0.5 mg/dL (0.2-1.3); Blood Urea Nitrogen 7 mg/dL (7-17); Carbon Dioxide 22 mmol/L (22-30); Chloride 105 mmol/L (98-107); Estimated CRCL calculation 52 ml/min; Estimated Glomerular Filt Rate > 60; Glucose 118 mg/dL (65-105); Potassium 3.2 mmol/L (3.4-5.0); Sodium 139 mmol/L (137-145)
[2020-07-30 18:03] LABS: Alanine Aminotransferase 21 U/L (4-35)
[2020-07-30 18:08] LABS: NT Pro B Type Natriuretic Pept 857 PG/ML (5-100); Troponin I < 0.012 ng/mL (0.000-0.034)
--- NOTE | 2020-07-30 18:11 | ED.GENADULT ---
HPI - General Adult General Chief complaint: Shortness of Breath/Dyspnea <Azar Christopher MD - Last Filed: 07/30/20 18:54> Stated complaint: SOB <Azar hCristopher MD - Last Filed: 07/30/20 18:54> Time Seen by Provider: 07/30/20 17:18 <Azar Christopher MD - Last Filed: 07/30/20 18:54> Source: patient <Azar Christopher MD - Last Filed: 07/30/20 18:54> History of Present Illness HPI narrative: Patient is 70 years old white female presents with anxiety, not feeling well the last few days and hyperventilation. Patient reports that she have a lot of stress at home, kids, grandkids and her who is drinking daily. 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 Patient denies any fever, chills, nausea, vomiting, diarrhea, chest pain, headache. <Azar Christopher MD - Last Filed: 07/30/20 18:54> Related Data Home medications: Home Medications Medication Instructions Recorded Confirmed multivitamin 1 tablet PO DAILY 06/22/19 06/02/20 ibuprofen 200 mg PO Q6-8H PRN 01/27/20 06/02/20 polyethylene glycol 3350 17 gram 17 gm PO DAILY 04/14/20 06/02/20 oral powder packet alprazolam 0.25 mg PO DIRECTED PRN 05/12/20 06/02/20 albuterol sulfate [Ventolin HFA] 2 puff INHALATION Q4-6H PRN 06/02/20 06/02/20 lorazepam 1 - 2 mg PO HS 06/02/20 06/02/20 <Azar Christopher MD - Last Filed: 07/30/20 18:54> Allergies/adverse reactions: Allergies Allergy/AdvReac Type Severity Reaction Status Date / Time tetanus immune globulin Allergy Severe FEVER, FLU Verified 07/30/20 17:21 SX. cefaclor Allergy Unknown Hives Verified 07/30/20 17:21 tetanus toxoid, adsorbed Allergy Unknown Unknown Verified 07/30/20 17:21 Tetanus Vaccines and Toxoid Allergy Unknown Unknown Verified 07/30/20 17:21 adhesive tape AdvReac Unknown Other Verified 07/30/20 17:21 <Azar Christopher MD - Last Filed: 07/30/20 18:54> Review of Systems Review of Systems: Narrative: CONSTITUTIONAL: Denies fever, chills, or sweats. EYES: Denies visual changes, redness, or discharge. ENT: Denies rhinorrhea, congestion, sore throat, or otalgia. CARDIOVASCULAR: Denies chest pain, palpitations, or edema. RESPIRATORY: Complaining of hyperventilation and shortness of breath GASTROINTESTINAL: Intermittent nausea no abdominal pain GENITOURINARY: Denies dysuria or hematuria. SKIN: Denies rash or itching. MUSCULOSKELETAL: Denies back pain, joint pain, or myalgia. NEUROLOGIC: Denies headache, numbness, or weakness. PSYCHIATRIC: Very anxious and distressed <Azar Christopher MD - Last Filed: 07/30/20 18:54> [facility] Past Medical History Medical History: Medical History Abdominal pain Anorexia Anxiety with depression Basal cell carcinoma of nose Benign essential hypertension Benign fundic gland polyps of stomach (~05/2017) BMI 25.0-25.9,adult Burst fracture of T12 vertebra Chronic nausea Chronic sinusitis Debility Diverticulosis Eczema Elevated homocysteine Elevated LFTs Fatigue Follow up Gastroesophageal reflux disease History of hypertension Hyperplastic polyp of sigmoid colon Hyponatremia Iron deficiency anemia Mild reactive airways disease Physical debility Restless leg syndrome Sinusitis SOB (shortness of breath) Unsteady gait Vitamin B12 deficiency Vitamin D deficiency Weakness Weight loss <Azar Christopher MD - Last Filed: 07/30/20 18:54> Surgical History Surgical History: Surgical History History of appendectomy History of cholecystectomy History of exploratory laparotomy (~10/2003) Removal of anterior abdominal wall mass (benign fibroid), adhesiolysis, and bilateral salpingo-oophorectomy with bladder repair. History of gastric bypass History of lumbar fusion History of vaginal hysterectomy Status post functional endoscopic sinus surgery And bilateral maxil
[2020-07-30] MEDS: LORazepam INJ (*CRX) 2 MG/ML VIAL (18:16)
[2020-07-30 18:26] LABS: Ethanol < 10 mg/dL (<10)
[2020-07-30] MEDS: POTASSIUM CHLORIDE 20 MEQ TABLET 40 MEQ PO (18:44)
[2020-07-30 20:40] LABS: Reflex Lactic Acid Yes or No Add Lactic
--- NOTE | 2020-07-30 20:59 | PM.IMHP ---
H&P: HPI History of Present Illness Date/Time: 07/30/20 20:59 Chief complaint: covid pui, pneumonia, metabolic encephalopathy Narrative: Juliet Weinstein is a 70 year old female with past medical history anxiety, hypertension, iron deficiency anemia, GERD presents to ED with complaints of anxiety, fevers, chills, malaise, increased confusion over the last couple weeks. She knows that she is confused and is having a hard time describing her medical history and recent events. 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 The onset appears to be gradual and may or may not correlate with new medication from her PCP. She does not know what medications and when they were changed, it appears like she got Wellbutrin XL and Abilify filled 07/28/2020 which may be new. Nurses are unable to verify medications this evening. She denies any sick contacts, recent travels. Recently she was evaluated in the ED 06/19/2020 for head injury after falling out of bed, an incidental finding of UTI treated with Macrobid. When talking nurses there was some concern patient's confusion may be more manager intermediate as they think care for in the past and she has had acute encephalopathy previously associated with UTIs. In the ED: Patient found to be tachypneic rate 34, ABG was consistent with pH 7.64/pCO2 19.9/PO2 98.3/bicarb 21.1. Chest x-ray showed patchy bilateral airspace opacities right greater than left. CTA chest found airspace opacities and no PE. Head CT was negative. Her lactic acid was elevated at 4.0 and normalized to 1.0. In the ED she received Levaquin, [place] and morphine for pain and potassium 40 mEq once. COVID swab, urine culture and blood cultures sent. Alcohol level negative. Patient admitted medical floor without telemetry for observation for community-acquired pneumonia and acute encephalopathy, she is also a PUI for COVID-19. Review of Systems Review of Systems: Narrative: Constitutional:No Night Sweats, No Fatigue, No Malaise. Endorses fever and chills. ENT/Mouth: No Hearing Changes, No Ear Pain, No Sinus Pain, No Hoarseness, No sore throat, No Rhinorrhea, No Swallowing Difficulty. Endorses chronic congestion Eyes: No Eye Pain, No Redness, No Vision Changes Cardiovascular: No Chest Pain, No Palpitations,No Orthopnea, No Claudication, No Edema Respiratory: No Sputum, No Wheezing. Endorses cough, dyspnea. Gastrointestinal: No Nausea, No Vomiting, No Abdominal Pain, No Heartburn, No Hematochezia, No Melena. Endorses chronic diarrhea and constipation from IBS. Genitourinary: No Dysuria, No Urinary Frequency, No Hematuria, No Urinary Incontinence, No Urgency Musculoskeletal: No Arthralgias, No Myalgias, No Joint Swelling, No Joint Stiffness, No Back Pain Skin: No Skin Lesions, No Pruritis, No Hair Changes Neuro: No Weakness, No Numbness, No Paresthesias, No Loss of Consciousness, No Syncope, No Dizziness, No Headache Psych: Endorses anxiety Heme: No Bleeding. Endorses chronic bruising from skin condition Lymph: No Adenopathy Endocrine: No Polyuria, No Polydipsia, No Temperature Intolerance PMFSH Past Medical History Medical History Abdominal pain Anorexia Anxiety with depression Basal cell carcinoma of nose Benign essential hypertension Benign fundic gland polyps of stomach (~05/2017) BMI 25.0-25.9,adult Burst fracture of T12 vertebra Chronic nausea Chronic sinusitis Debility Diverticulosis Eczema Elevated homocysteine Elevated LFTs Fatigue Follow up Gastroesophageal reflux disease History of hypertension Hyperplastic polyp of sigmoid colon Hyponatremia Iron deficiency anemia Mild reactive airways disease Physical debility Restless leg syndrome Sinusitis SOB (shortness of breath) Unsteady gait Vitamin B12 deficiency Vitamin D deficiency Weakness Weight loss Surgical History Surgica
[2020-07-30 22:00] LABS: Alveolar/Arterial O2 Gradient 24.8 mmHg; Base Excess ABG 0.5 mEq/l (+/-2.0); Carboxyhemoglobin 0.2 % THb (0-2.0); Fractional Inspired Oxygen 21 %; HCO3 ABG 23.1 mEq/l (22.0-26.0); Methemoglobin ABG 0.3 %THb (0-1.5); Oxygen Content ABG 14.1 %vol (16.0-22.0); Oxygen Saturation ABG 97.5 % (95.0-100.0); Oxyhemoglobin 95.8 % THb (90.0-100.0); PCO2 ABG 30.2 mmHg (35.0-45.0); PO2 ABG 88.8 mmHg (80.0-100.0); PO2 FiO2 Ratio Arterial Blood 4.23 %; Reduced Hemoglobin 3.7 %THb (0-5.0); Total Hemoglobin 10.4 g/dL (12.0-18.0); pH ABG 7.502 (7.350-7.450)
[2020-07-30 22:02] LABS: Device ROOM AIR; Modified Allen's Test Pass; Site Drawn RIGHT RADIAL
--- NOTE | 2020-07-30 23:00 | ADMGEN ---
This patient, Juliet Weinstein, was admitted to [facility] Surg Room 333-01. Patient/family oriented to hospital policies and general routines including ID bracelet, bed and alarms, visiting hours, pain management, procedures, bathroom and other care routines, personal items, smoking policy, room service/diet, and visiting hours. Information on how to activate the Rapid Response Team has been discussed. Patient/Family are encouraged to report perceived risks to care and to ask questions if they do not understand what they are told or what they should do.
[2020-07-30] MEDS: ACETAMINOPHEN 325 MG TABLET 650 MG PO (23:22)
[2020-07-31] MEDS: HYDROcodone/acetaminophen (*CRX) 5-325 MG TABLET 1 TAB PO ×2 (00:09→11:55)
--- NOTE | 2020-07-31 01:19 | PC.NURSE ---
Attempted to call to confirm medication list. Unable to reach . Dr. Lynch and Teresa Vega aware that med list was not able to be obtained. Will attempt to call daughter in the morning to obtain medication list. If still unable to obtain may have to call pharmacy in the morning when they open.
[2020-07-31 04:00] VITALS: BP 129/68; PULSE 91; RESP 16; TEMP 36.8; O2SAT 99
[2020-07-31 06:49] LABS: Anion Gap 7 mmol/L (8-16); Blood Urea Nitrogen 4 mg/dL (7-17); Calcium 7.9 mg/dL (8.4-10.2); Carbon Dioxide 23 mmol/L (22-30); Chloride 108 mmol/L (98-107); Estimated CRCL calculation 68 ml/min; Estimated Glomerular Filt Rate > 60; Glucose 86 mg/dL (65-105); Magnesium 1.9 mg/dL (1.6-2.3); Potassium 3.9 mmol/L (3.4-5.0); Sodium 138 mmol/L (137-145)
[2020-07-31 07:27] LABS: Basophils Percent Auto 0.7 % (0.2-1.2); Eosinophils Absolute Auto 0.1 K/mm3 (0-0.3); Eosinophils Percent Auto 2.7 % (0-4.4); Immature Granulocyte Absolute 0.02 K/mm3 (0.00-0.031); Immature Granulocyte Percent A 0.5 % (0-0.5); Lymphocytes Absolute Auto 0.93 K/mm3 (0.9-3.2); Mean Corpuscular HGB Conc 32.1 g/dl (32-36); Mean Corpuscular Hemoglobin 29.3 pg (26-34); Mean Corpuscular Volume 91.2 fl (80-100); Mean Platelet Volume 10.5 fl (7.4-10.4); Monocytes Absolute Auto 0.5 K/mm3 (0.1-0.6); Monocytes Percent Auto 10.6 % (2.6-8.5); Neutrophils Absolute Auto 2.9 K/mm3 (1.3-6.7); Neutrophils Percent Auto 64.5 % (45.5-73.1); Platelet Count Result 343 k/mm3 (150-375); Red Blood Count 3.07 M/mm3 (4.2-5.4); Red Cell Distribution Width 18.4 % (11.5-14.5); White Blood Count 4.4 K/mm3 (4.5-10.0)
[2020-07-31 08:00] VITALS: BP 141/91; PULSE 91; PULSE 96; RESP 16; RESP 18; TEMP 36.8; O2SAT 100; O2SAT 99
[2020-07-31] MEDS: ALPRAZolam (*CRX) 0.25 MG TABLET PO ×2 (11:55→16:11)
[2020-07-31 12:00] VITALS: BP 151/82; PULSE 100; RESP 18; TEMP 36.7; O2SAT 99
[2020-07-31] MEDS: lisinopriL 20 MG TABLET 40 MG PO (13:40)
[2020-07-31] MEDS: polyethylene glycoL 3350 17 GM POWD.PACK PO (13:40)
[2020-07-31] MEDS: VITAMIN B COMPLEX CAPSULE 1 CAP PO (13:41)
[2020-07-31] MEDS: MULTIVITAMINS THERAPEUTIC TAB (*BKC) 1 TABLET PO (13:41)
[2020-07-31] MEDS: FERROUS SULFATE 324 MG TABLET PO (13:41)
[2020-07-31] MEDS: CHOLECALCIFEROL 1,000 UNITS TABLET 1000 UNITS PO (13:41)
[2020-07-31] MEDS: FOLIC ACID 1 MG TABLET PO (13:41)
[2020-07-31 14:12] LABS: Hematocrit 31.9 % (37.0-47.0); Hemoglobin 10.4 g/dL (12.0-15.0)
[2020-07-31 16:00] VITALS: BP 148/89; PULSE 99; RESP 18; TEMP 36.4; O2SAT 100
[2020-07-31] MEDS: traMADol HCL (*CRX) 50 MG TABLET PO (16:11)
[2020-07-31 18:35] LABS: SARS-CoV-2 RNA PCR Negative
[2020-07-31] MEDS: PANTOPRAZOLE 40 MG TABLET PO (18:35)
--- NOTE | 2020-07-31 18:42 | PM.IMPN ---
Progress Note: A&P Assessment and Plan (1) Community acquired pneumonia: Qualifiers: Laterality: left Lung location: lower lobe of lung Qualified Code(s): J18.9 - Pneumonia, unspecified organism Code(s): J18.9 - Pneumonia, unspecified organism Status: Acute Assessment and Plan: Patient has complaints of fever and chills but no fevers noted here. WBC normal on admission but low 4400 today possibly viral. CXR showing patchy bilateral airspace opacities, right greater than left. CTA showing no PE but with groundglass opacities of the right upper lobe and to a lesser extent in the lower lobes. ABG consistent with hyperventilation. Patient received Levaquin in the ED but changed to azithromycin Continue Azithro monotherapy for now since WBC okay and no fever COVID-19 test pending continue supportive care history of asthma but no wheezing currently - hold on steroids Add nebs if becomes hypoxic (2) Hypokalemia: Code(s): E87.6 - Hypokalemia Status: Acute Assessment and Plan: Potassium 3.2 on admission and received 40 mEq in ED. Repeat potassium today 3.9. Mag 1.9 Follow (3) Generalized weakness: Code(s): R53.1 - Weakness Status: Acute Assessment and Plan: Patient with generalized weakness. CT brain shwong no acute findings. PT evaluate and treat (4) Acute encephalopathy: Code(s): G93.40 - Encephalopathy, unspecified Status: Acute Assessment and Plan: Patient has new confusion that is going on for last couple weeks which may correlate with the medication (unknown type). Med list here compared to May showing Diflucan and Macrobid are new but Lorazepam has been stopped. Patient with anxiety and confusion. Patient is not hypoxic or hypercarbic. No uremia or hypertensive. No alcohol since May per . states has been confused since October. MRI Brain in May normal. Has seen neurologist recently and EEG was done but results unknown. Resume home meds and follow Neuro consult try Seroquel at night (5) Anxiety: Code(s): F41.9 - Anxiety disorder, unspecified Status: Acute Assessment and Plan: Patient has anxiety with hyperventilation as seen on ABG with alkalemia and hypocapnia. resume prn alprazolam (6) Polyuria: Code(s): R35.8 - Other polyuria Status: Acute Assessment and Plan: Nurses note patient is having frequent urinations. She has a history of urinary retention needing indwelling Sommers. UA showing WBC 10-15, LE 1+ but many squamous cells. urine culture contamination check bladder scan (7) Anemia: Code(s): D64.9 - Anemia, unspecified Status: Acute Assessment and Plan: Patient with chronic anemia. Workup in May unrevealing. Hgb dropped to 9.0 today. No evidence of acute blood loss. Repeat HH later today to assess stability --> Hgb 10.4 now. follow (8) DVT prophylaxis: Code(s): Z29.9 - Encounter for prophylactic measures, unspecified Status: Acute Assessment and Plan: Lovenox Subjective Date/time seen: 07/31/20 18:42 Interval history: Date of service 07/31/20 70 year old female with anxiety, HTN, and iron deficiency anemia presents to ED with complaints of anxiety, fevers, chills, malaise, increased confusion over the last couple weeks. Patient alert, anxious and confused. She is eating okay. Denies CP. She feels anxious and SOB. Hx unreliable. Review of Systems Review of Systems: ROS unobtainable: Yes unobtainable due to mental status Exam Narrative: Exam Narrative: AF 98.0 151/82 100 18 99% ra Gen - NARD sitting up in chair Chest - CTA bilaterally, nml RR CV - RRR S1/S2 Abd - Soft, NT/ND, Positive BS Ext - trace pedal edema Neuro - Alert but confused. Psych - anxious and nervous Skin - Warm and dry Objective Data Vital Signs Vital Signs: Vital
[2020-07-31] MEDS: QUEtiapine FUMARATE 12.5 MG TABLET PO (21:50)
[2020-07-31 22:00] VITALS: BP 132/97; PULSE 107; RESP 20; TEMP 36.6; O2SAT 100
[2020-08-01 06:00] VITALS: BP 150/87; PULSE 100; RESP 20; TEMP 36.8; O2SAT 100
[2020-08-01 06:48] LABS: Hemoglobin 8.7 g/dL (12.0-15.0); Mean Corpuscular HGB Conc 31.1 g/dl (32-36); Mean Corpuscular Hemoglobin 28.4 pg (26-34); Mean Corpuscular Volume 91.5 fl (80-100); Mean Platelet Volume 10.2 fl (7.4-10.4); Platelet Count Result 336 k/mm3 (150-375); Red Blood Count 3.06 M/mm3 (4.2-5.4); Red Cell Distribution Width 18.2 % (11.5-14.5); White Blood Count 3.8 K/mm3 (4.5-10.0)
[2020-08-01 07:06] LABS: Anion Gap 4 mmol/L (8-16); Blood Urea Nitrogen 6 mg/dL (7-17); Calcium 8.1 mg/dL (8.4-10.2); Carbon Dioxide 27 mmol/L (22-30); Chloride 108 mmol/L (98-107); Estimated CRCL calculation 59 ml/min; Estimated Glomerular Filt Rate > 60; Glucose 85 mg/dL (65-105); Potassium 3.6 mmol/L (3.4-5.0); Sodium 139 mmol/L (137-145)
[2020-08-01] MEDS: PANTOPRAZOLE 40 MG TABLET PO ×2 (09:07→16:22)
[2020-08-01] MEDS: MULTIVITAMINS THERAPEUTIC TAB (*BKC) 1 TABLET PO (09:07)
[2020-08-01] MEDS: FOLIC ACID 1 MG TABLET PO (09:07)
[2020-08-01] MEDS: VITAMIN B COMPLEX CAPSULE 1 CAP PO (09:08)
[2020-08-01] MEDS: FERROUS SULFATE 324 MG TABLET PO (09:08)
[2020-08-01] MEDS: lisinopriL 20 MG TABLET 40 MG PO (09:08)
[2020-08-01] MEDS: ENOXAPARIN 40 MG/0.4 ML SYRINGE SUB-Q (09:08)
[2020-08-01] MEDS: polyethylene glycoL 3350 17 GM POWD.PACK PO (09:08)
[2020-08-01] MEDS: CHOLECALCIFEROL 1,000 UNITS TABLET 1000 UNITS PO (09:08)
--- NOTE | 2020-08-01 11:37 | WPDNEURCNPN ---
Assessment and Plan Assessment and plan (1) Anxiety: Code(s): F41.9 - Anxiety disorder, unspecified Status: Acute (2) Acute encephalopathy: Code(s): G93.40 - Encephalopathy, unspecified Status: Acute (3) Vitamin B deficiency: Code(s): E53.9 - Vitamin B deficiency, unspecified Status: Acute (4) Anxiety with depression: Code(s): F41.8 - Other specified anxiety disorders Status: Acute Additional Plan encephalopathy versus a postictal condition will obtain a routine EEG and MRI of brain Consult date: 08/01/20 Time Seen: 11:35 HPI: Juliet Weinstein is a 70 year old female admitted to the hospital with the chief complaint of COVID pneumonia metabolic encephalopathy in addition to a history of anxiety, hypertension, iron deficiency anemia, GERD, 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 and work last week as well he was unclear about the medication she is taking but included Wellbutrin XL and Abilify filled on July 28, 2020 she gave no history of any sick contact recent travel he was initially evaluated in the emergency room on 06/19 for head injury after falling out of bed and incidental finding of UTI which was treated with Macrobid on initial evaluation in the emergency room he was found to be tachypnea chest x-ray with patchy bilateral airspace opacities right> than left CTA airspace opacities but no pulmonary emboli head CT negative she was given Levaquin in the emergency room along with the pain medication and all other cultures were taken . patient has a long list of multiple medical problems pertinent 1 include the anorexia, anxiety with depression B12 deficiency with unsteady gait and history of multiple surgeries including the gastric bypass. Routine labs with leukopenia anemia with hemoglobin of 8.7 WBC of 3.8 platelet count of 336, basic metabolic panel with a chloride of 108 creatinine 0.7 BUN only 6 and calcium 8.1 SARS-CoV-2 at this time negative cultures negative Review of Systems Review of Systems: All systems reviewed & are unremarkable except as noted in HPI and below PMFSH Past Medical History Medical History Abdominal pain Anorexia Anxiety with depression Basal cell carcinoma of nose Benign essential hypertension Benign fundic gland polyps of stomach (~05/2017) BMI 25.0-25.9,adult Burst fracture of T12 vertebra Chronic nausea Chronic sinusitis Debility Diverticulosis Eczema Elevated homocysteine Elevated LFTs Fatigue Follow up Gastroesophageal reflux disease History of hypertension Hyperplastic polyp of sigmoid colon Hyponatremia Iron deficiency anemia Mild reactive airways disease Physical debility Restless leg syndrome Sinusitis SOB (shortness of breath) Unsteady gait Vitamin B12 deficiency Vitamin D deficiency Weakness Weight loss Surgical History Surgical History History of appendectomy History of cholecystectomy History of exploratory laparotomy (~10/2003) Removal of anterior abdominal wall mass (benign fibroid), adhesiolysis, and bilateral salpingo-oophorectomy with bladder repair. History of gastric bypass History of lumbar fusion History of vaginal hysterectomy Status post functional endoscopic sinus surgery And bilateral maxillary antrostomy. Status post surgical removal of malignant neoplasm of skin Excision basal cell carcinoma from the bridge of the nose. Family History Family History Sibling Family history of lung cancer Patient's sister is Father Family history of malignant melanoma Acute myocardial infarction Family history of throat cancer Family history of congestive heart failure Family history of type 1 diabetes mellitus Mother Family history of lung cancer Family history of congestive heart failure Family history of type 1 diabetes m
[2020-08-01] MEDS: levoFLOXacin 500 MG/D5W 100 ML 500 MG/100 ML BAG 100 MG IVPB (12:22)
[2020-08-01 13:20] VITALS: PULSE 110; RESP 22; O2SAT 98
[2020-08-01] MEDS: ALBUTEROL SULFATE (*SP) AEROSOL 1 PUFF 2 PUFF INHALATION (13:21)
[2020-08-01] MEDS: ALPRAZolam (*CRX) 0.25 MG TABLET PO ×2 (13:22→21:48)
[2020-08-01 14:00] VITALS: BP 108/78; PULSE 110; RESP 16; TEMP 36.4; O2SAT 100
--- NOTE | 2020-08-01 15:38 | PM.IMPN ---
Progress Note: A&P Assessment and Plan (1) Community acquired pneumonia: Qualifiers: Laterality: left Lung location: lower lobe of lung Qualified Code(s): J18.9 - Pneumonia, unspecified organism Code(s): J18.9 - Pneumonia, unspecified organism Status: Acute Assessment and Plan: Patient has complaints of fever and chills but no fevers noted here. WBC normal on admission but low 4400 today possibly viral. CXR showing patchy bilateral airspace opacities, right greater than left. CTA showing no PE but with groundglass opacities of the right upper lobe and to a lesser extent in the lower lobes. ABG consistent with hyperventilation. Patient received Levaquin in the ED and will continue Continue levaquin monotherapy for now since WBC okay and no fever COVID-19 test negative continue supportive care history of asthma but no wheezing currently - hold on steroids Add nebs if becomes hypoxic (2) Hypokalemia: Code(s): E87.6 - Hypokalemia Status: Acute Assessment and Plan: Potassium 3.2 on admission and received 40 mEq in ED. Repeat potassium today 3.6. Follow (3) Generalized weakness: Code(s): R53.1 - Weakness Status: Acute Assessment and Plan: Patient with generalized weakness. CT brain shwong no acute findings. PT evaluate and treat (4) Acute encephalopathy: Code(s): G93.40 - Encephalopathy, unspecified Status: Acute Assessment and Plan: Patient has new confusion that is going on for last couple weeks which may correlate with the medication (unknown type). Med list here compared to May showing Diflucan and Macrobid are new but Lorazepam has been stopped. Patient with anxiety and confusion. Patient is not hypoxic or hypercarbic. No uremia or hypertensive. No alcohol since May per . states has been confused since October. MRI Brain in May normal. Has seen neurologist recently and EEG was done but results unknown. Resume home meds and follow Neuro consult try Seroquel at night check TSH, B12 normal 06/06 (5) Anxiety: Code(s): F41.9 - Anxiety disorder, unspecified Status: Acute Assessment and Plan: Patient has anxiety with hyperventilation as seen on ABG with alkalemia and hypocapnia. resumed prn alprazolam (6) Polyuria: Code(s): R35.8 - Other polyuria Status: Acute Assessment and Plan: Nurses note patient is having frequent urinations. She has a history of urinary retention needing indwelling Sommers. UA showing WBC 10-15, LE 1+ but many squamous cells. urine culture contamination continue levaquin (7) Anemia: Code(s): D64.9 - Anemia, unspecified Status: Acute Assessment and Plan: Patient with chronic anemia. Workup in May unrevealing. Hgb dropped to 8.7, recheck Fe studies (8) DVT prophylaxis: Code(s): Z29.9 - Encounter for prophylactic measures, unspecified Status: Acute Assessment and Plan: Lovenox Subjective Date/time seen: 08/01/20 15:38 Interval history: Date of service 08/01/20 70 year old female with anxiety, HTN, and iron deficiency anemia presents to ED with complaints of anxiety, fevers, chills, malaise, increased confusion over the last couple weeks. Patient alert, anxious and confused. She is eating okay. Denies CP. She feels anxious and SOB. Hx unreliable. Exam Narrative: Exam Narrative: AF 98.0 110/78 90 18 99% ra Gen - NARD sitting up in chair Chest - CTA bilaterally, nml RR CV - RRR S1/S2 Abd - Soft, NT/ND, Positive BS Ext - trace pedal edema Neuro - Alert but confused. Psych - anxious and nervous Skin - Warm and dry Objective Data Vital Signs Vital Signs: Vital Signs - 24 hr 07/31/20 16:00 07/31/20 22:00 08/01/20 06:00 Temperature 36.4 C L 36.6 C 36.8 C Pulse Rate 99 107 H 100 Respiratory Rate 18 20 20 Blood Pressure 148
[2020-08-01] MEDS: traMADol HCL (*CRX) 50 MG TABLET PO ×2 (16:21→21:46)
[2020-08-01 20:00] VITALS: PULSE 92
[2020-08-01 20:53] VITALS: BP 154/83; PULSE 98; RESP 20; TEMP 36.6; O2SAT 100
[2020-08-01] MEDS: ACETAMINOPHEN 325 MG TABLET 650 MG PO (21:47)
[2020-08-01] MEDS: QUEtiapine FUMARATE 12.5 MG TABLET PO (21:50)
[2020-08-02] VITALS: PULSE 90
[2020-08-02 04:00] VITALS: PULSE 90
[2020-08-02 06:00] VITALS: BP 135/75; PULSE 82; RESP 20; TEMP 36.1; O2SAT 100
[2020-08-02 07:26] LABS: Hematocrit 28.7 % (37.0-47.0); Mean Corpuscular HGB Conc 31.4 g/dl (32-36); Mean Corpuscular Hemoglobin 29.6 pg (26-34); Mean Corpuscular Volume 94.4 fl (80-100); Mean Platelet Volume 10.4 fl (7.4-10.4); Platelet Count Result 320 k/mm3 (150-375); Red Blood Count 3.04 M/mm3 (4.2-5.4); Red Cell Distribution Width 18.6 % (11.5-14.5); White Blood Count 3.5 K/mm3 (4.5-10.0)
[2020-08-02 07:37] LABS: Iron 20 ug/dL (37-170)
[2020-08-02 07:48] LABS: Percent Iron Saturation 7 % (20-50)
[2020-08-02] MEDS: CHOLECALCIFEROL 1,000 UNITS TABLET 1000 UNITS PO (09:22)
[2020-08-02] MEDS: MULTIVITAMINS THERAPEUTIC TAB (*BKC) 1 TABLET PO (09:22)
[2020-08-02] MEDS: FERROUS SULFATE 324 MG TABLET PO (09:22)
[2020-08-02] MEDS: VITAMIN B COMPLEX CAPSULE 1 CAP PO (09:22)
[2020-08-02] MEDS: PANTOPRAZOLE 40 MG TABLET PO (09:23)
[2020-08-02] MEDS: FLUTICASONE PROPIONATE 0.05% NA SPR 16 GM BTL (*BKC) 2 SPRAY NASAL (09:23)
[2020-08-02] MEDS: ENOXAPARIN 40 MG/0.4 ML SYRINGE SUB-Q (09:23)
[2020-08-02] MEDS: FOLIC ACID 1 MG TABLET PO (09:23)
[2020-08-02] MEDS: lisinopriL 20 MG TABLET 40 MG PO (09:23)
[2020-08-02] MEDS: polyethylene glycoL 3350 17 GM POWD.PACK PO (09:25)
[2020-08-02] MEDS: ALPRAZolam (*CRX) 0.25 MG TABLET PO (09:28)
--- NOTE | 2020-08-02 10:19 | WPDNEUROLOGY ---
Neurology EEG Report General Information Date of Study: 07/28/20 TEST EEG DIAGNOSIS confusion CONDITION OF RECORDING awake drowsy and sleep EEG NUMBER [id number] CLINICAL HISTORY patient reported she has been having lot of confusion in the last couple of months. EEG DESCRIPTION Basic resting occipital frequency consists of low to medium voltage 8 to 10 hertz per 2nd alpha admixed with low-voltage 15 to 18 hertz per 2nd beta. Bilateral symmetrical sleep activity seen during sleep hyperventilation not done. Photic stimulation produced normal drive. Rather multiple muscle artifacts seen throughout the tracing. Non paroxysmal. Nonfocal. Nonlateralizing. IMPRESSION No significant abnormalities noted
[2020-08-02] MEDS: traMADol HCL (*CRX) 50 MG TABLET PO (10:38)
[2020-08-02] MEDS: levoFLOXacin 500 MG/D5W 100 ML 500 MG/100 ML BAG 100 MG IVPB (10:44)
--- NOTE | 2020-08-02 12:27 | PC.NURSE ---
Per Dr Campbell patient okay for discharge no follow up needed.
--- NOTE | 2020-08-02 18:34 | PM.DS ---
DS: Admitting Diagnosis Admitting Diagnosis Admitting Diagnosis: Pneumonia DS: Discharge Diagnosis Discharge Diagnosis (1) Community acquired pneumonia: Qualifiers: Laterality: left Lung location: lower lobe of lung Qualified Code(s): J18.9 - Pneumonia, unspecified organism Code(s): J18.9 - Pneumonia, unspecified organism Status: Acute Assessment and Plan: Patient has complaints of fever and chills but no fevers noted here. WBC normal on admission but low 4400 today possibly viral. CXR showing patchy bilateral airspace opacities, right greater than left. CTA showing no PE but with groundglass opacities of the right upper lobe and to a lesser extent in the lower lobes. ABG consistent with hyperventilation. Patient received Levaquin in the ED and continued while here 4 days and will receive 3 more days for total of 7 days treatment Continue levaquin monotherapy for now since WBC okay and no fever COVID-19 test negative history of asthma but no wheezing currently - hold on steroids (2) Hypokalemia: Code(s): E87.6 - Hypokalemia Status: Acute Assessment and Plan: Potassium 3.2 on admission and received 40 mEq in ED. Repeat potassium 3.6. 08/01 with sodium of 139 Follow (3) Generalized weakness: Code(s): R53.1 - Weakness Status: Acute Assessment and Plan: Patient with generalized weakness. CT brain shwong no acute findings. PT evaluated and treated while here (4) Acute encephalopathy: Code(s): G93.40 - Encephalopathy, unspecified Status: Acute Assessment and Plan: Patient has new confusion that is going on for last couple weeks which may correlate with the medication (unknown type). Med list here compared to May showing Diflucan and Macrobid are new but Lorazepam has been stopped. Patient with anxiety and confusion. Patient is not hypoxic or hypercarbic. No uremia or hypertensive. No alcohol since May per . states has been confused since October. MRI Brain in May normal. Has seen neurologist recently and EEG was done but results unknown. Resumed home meds Neuro consult was obtained and no change in meds. check TSH normal, and B12 was normal 06/06 (5) Anxiety: Code(s): F41.9 - Anxiety disorder, unspecified Status: Acute Assessment and Plan: Patient has anxiety with hyperventilation as seen on ABG with alkalemia and hypocapnia. resumed prn alprazolam (6) Polyuria: Code(s): R35.8 - Other polyuria Status: Acute Assessment and Plan: Nurses note patient is having frequent urinations. She has a history of urinary retention needing indwelling Sommers. UA showing WBC 10-15, LE 1+ but many squamous cells. urine culture contamination continued levaquin (7) Anemia: Code(s): D64.9 - Anemia, unspecified Status: Acute Assessment and Plan: Patient with chronic anemia. Workup in May unrevealing. Hgb 8.7 day before discharge. No IV iron given in the face of the infection. Status post gastric bypass and long history of electrolyte abnormalities and anemia is due to malabsorption DS: Summary Hospital Course Hospital Course: 70-year-old hypertensive female with several months history of declining mental status and confusion admitted with increased and coughing. Chest CT revealed infiltrates with some ground-glass appearance. COVID test was negative but patient was treated for bacterial pneumonia with Levaquin 4 days inpatient and will continue home for 3 more days for total 7 days treatment. Blood cultures were no growth. She remained afebrile with normal O2 saturations. Her ongoing anemia will be followed by her primary care and she will see him and 2 weeks. Time Spent with Patient Time attestation: Total time spent providing and/or coordinating discharge services: 35 minutes Exam Narrative: Exam Narrative: Cond
== END 2020-08-02 12:55 | disposition home health service (06) | DRG 194 ==
LOC: ANHED 22:00 → ANH3MEDSUR 22:01
PROVIDERS: Emergency Medicine; Internal Medicine; Admitting Provider Student in an Organized Health Care Education/Training Program; Emergency Provider Emergency Medicine; PCP Internal Medicine; Visit Provider Internal Medicine
DX: J15.9 Unspecified bacterial pneumonia (principal); G93.40 Encephalopathy, unspecified; K90.9 Intestinal malabsorption, unspecified; Z20.828 Contact with and (suspected) exposure to other viral communicable diseases; J45.909 Unspecified asthma, uncomplicated; R06.4 Hyperventilation; I10 Essential (primary) hypertension; R53.1 Weakness; F41.8 Other specified anxiety disorders; E87.6 Hypokalemia; D50.9 Iron deficiency anemia, unspecified; E55.9 Vitamin D deficiency, unspecified; E53.8 Deficiency of other specified B group vitamins; K21.9 Gastro-esophageal reflux disease without esophagitis; R35.8 Other polyuria; Z98.1 Arthrodesis status; Z79.899 Other long term (current) drug therapy; Z88.1 Allergy status to other antibiotic agents; Z98.84 Bariatric surgery status
CPT/HCPCS: 36415; 36600; 70450; 71045; 71275; 72131; 80048; 80053; 80307; 81001; 82375; 82728; 82805; 83050; 83540; 83550; 83605; 83735; 83880; 84443; 84484; 85014; 85018; 85025; 85027; 85380; 85610; 85730; 87040; 87086; 87088; 87635; 92523; 93005; 95816; 96365; 96366; 96375; 97110; 97116; 97161; 99285; A9270; C9803; G0378; J0456; J1650; J1956; J2060; Q9967; U0003

== ENCOUNTER 2020-08-25 08:34 | Outpatient (CLI) | payer MEDICARE, OTHER, SELFPAY ==
--- NOTE | ~2020-08-25 | XR_ITS ---
XR lumbar spine 2-3V DATE: 08/25/2020 09:35 INDICATION: Fall. Back pain. TECHNIQUE: AP, lateral, coned lateral lumbosacral views COMPARISON: 07/28/2020 CT lumbar spine FINDINGS: Vertebroplasty is noted in a prominent burst fracture deformity of T12. There is prominent loss of height, biconcavity and anterior wedging of T11 consistent with chronic fr acture at this site as well. These findings at T11 and T12 are unchanged since 07/28/2020. Prominent diffuse osteopenia. There is mild dextroscoliosis of the thoracolumbar spine. Status post posterior and interbody spinal fusion at L4-5. The hardware appears intact without fractu re or displacement. 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 The intervertebral disc prosthesis projects further into the superior aspect of the L5 vertebral body suggesting interval compression fracture of L5 since 07/28/2020. No other interval lumbar spine fracture is noted since 07/28/2020. The sacroiliac joints appear intact. Surgical clips overlying the left sacroiliac area. IMPRESSION: Interval superior L5 compression fracture with L4-5 intervertebral disc prosthesis projec ting further into the superior aspect of the L5 vertebral body since 07/28/2020 No other significant change since 07/28/2020 Reviewed, dictated and finalized at location B. ICAL METHODS ANALYST IMPRESSION: Interval superior L5 compression fracture with L4-5 intervertebral disc prosthesis projecting further into the superior aspect of the L5 vertebral body since 07/28/2020 No other significant change since 07/28/2020
--- NOTE | ~2020-08-25 | XR_ITS ---
XR hip LT 2V w AP pelvis 08/25/2020 09:35 INDICATION: Left hip pain PROCEDURE: 3 views left hip COMPARISON: 05/12/2020 FINDINGS: Fracture, dislocation or subluxation is not identified. Mild osteoarthritis of the left hip . There are surgical changes L4-5. Sacral foramen are symmetric. The soft tissues appear within leroy l limits. No foreign bodies are identified. IMPRESSION: 1: NO ACUTE BONE OR JOINT ABNORMALITY IDENTIFIED. Reviewed, dictated and finalized at location A. R LINING CEMENTER
--- NOTE | ~2020-08-25 | XR_ITS ---
XR knee LT 2V 08/25/2020 09:49 Indication: Knee pain Procedure: 2 views left knee Comparison: No prior studies for comparison. Findings: Mild patellofemoral osteoarthritis. No fracture, subluxation or dislocation. There is anato nay alignment. No joint effusion. Impression: 1: Mild patellofemoral osteoarthritis. Reviewed, dictated and finalized at location A. IVES SPECIALIST Impression: 1: Mild patellofemoral osteoarthritis.
== END 2020-08-25 08:35 | disposition home or self-care (01) ==
PROVIDERS: PCP Internal Medicine; Visit Provider Urology
DX: M25.559 Pain in unspecified hip (principal); M17.12 Unilateral primary osteoarthritis, left knee; S32.050A Wedge compression fracture of fifth lumbar vertebra, initial encounter for closed fracture; X58.XXXA Exposure to other specified factors, initial encounter
CPT/HCPCS: 72100; 73502; 73560

== ENCOUNTER 2020-08-28 14:03 | Outpatient (CLI) | payer MEDICARE, OTHER, SELFPAY ==
--- NOTE | ~2020-08-28 | CT_ITS ---
EXAMINATION: CT lumbar spine wo con DATE: 08/28/2020 14:31 INDICATION: Back pain. Fall. TECHNIQUE: Computed tomography (CT) of the lumbar spine was performed without intravenous contrast. A utomated exposure control and iterative reconstruction technique were employed. The dose-length produ ct was 412.60 mGy-cm. COMPARISON: Chest CT 07/30/2020, lumbar spine radiographs 08/25/2020, lumbar spine CT 07/28/2020. FINDINGS: There is 10 degrees dextroscoliosis of thoracolumbar spine. There is 7 mm anterolisthesis o f L4 on L5. There are changes of anterior and posterior fusion procedures at L4-L5 with interbody dev ices and pedicle screws. There are changes of L4 laminectomy with resection of the inferior facets. T here is a chronic burst fracture of T12 with 1/2 loss of height and changes of vertebroplasty involvi ng the vertebral body and T11-T12 disc. There is retropulsion of bone 5 mm into central spinal canal. There is a burst fracture of T11 with 2/5 loss of height, visible fracture lines, and sclerosis, con sistent with healing. The following disc levels are specifically discussed: T11-T12: The disc does not extend beyond the endplate margin. There is mild bilateral facet joint ost eoarthritis. There is no neural foraminal stenosis. There is mild central canal stenosis. T12-L1: The disc is bulging. There is mild bilateral facet joint osteoarthritis. There is mild left n eural foraminal stenosis. There is mild central canal stenosis. L1-L2: The disc is bulging. There is mild bilateral facet joint osteoarthritis. There is mild bilater al neural foraminal stenosis. There is mild central canal stenosis. L2-L3: The disc is bulging. There is mild bilateral facet joint osteoarthritis. There is mild bilater al neural foraminal stenosis. There is mild central canal stenosis. L3-L4: The disc is bulging. There is mild bilateral facet joint hypertrophy. There is mild bilateral neural foraminal stenosis. There is mild central canal stenosis. L4-L5: The disc does not extend beyond the endplate margin. There is no facet joint hypertrophy. Ther e is mild right neural foraminal stenosis. There is no central canal stenosis. L5-S1: The disc does not extend beyond the endplate margin. There is moderate bilateral facet joint o steoarthritis. There is no neural foraminal stenosis. There is no central canal stenosis. IMPRESSION: 1. Subacute T11 burst fracture with worsened height loss from 07/28/2020. 2. Chronic T12 burst fracture changes of vertebroplasty. 3. Anterior and posterior fusion procedures at L4-L5. 4. Mild lumbar spondylosis. 5. Thoracolumbar dextroscoliosis. Reviewed, dictated and finalized at location A. ULUS TEACHER
--- NOTE | ~2020-08-28 | XR_ITS ---
EXAMINATION: XR chest 2V DATE: 08/28/2020 14:27 INDICATION: Cough. Dyspnea on exertion. TECHNIQUE: Frontal and lateral views of the chest were obtained. COMPARISON: Chest single view 07/30/2020, lumbar spine radiographs 05/12/2020, 08/25/2020 FINDINGS: The chest demonstrates clear lungs without pneumonia, pleural effusion, or pneumothorax. Th e heart size is normal. There is a chronic burst fracture of T12 with changes of vertebroplasty. Ther e is a burst fracture of T11, worsened from 05/12/2020. IMPRESSION: 1. No acute cardiopulmonary disease. 2. T11 burst fracture, worsened from 05/12/2020. Reviewed, dictated and finalized at location A. RANS' COORDINATOR
== END 2020-08-28 14:04 | disposition home or self-care (01) ==
PROVIDERS: PCP Internal Medicine; Visit Provider Internal Medicine
DX: R05 Cough (principal); R06.02 Shortness of breath; M47.896 Other spondylosis, lumbar region; Z98.1 Arthrodesis status; S22.081D Stable burst fracture of T11-T12 vertebra, subsequent encounter for fracture with routine healing; X58.XXXD Exposure to other specified factors, subsequent encounter
CPT/HCPCS: 71046; 72131

== ENCOUNTER 2020-09-06 11:21 | Outpatient (CLI) | payer MEDICARE, OTHER, SELFPAY ==
--- NOTE | ~2020-09-06 | MR_ITS ---
EXAMINATION: MR thoracic spine wo con EXAM DATE: 09/06/2020 12:48 INDICATION: Thoracic back pain. TECHNIQUE: Multi-sequential, multiplanar MR images of the thoracic spine were obtained without contra st. Sagittal T1, T2, T2 fat saturation, axial T2 weighted images reviewed. Comparison is made to hadley or examination from 02/21/2020. FINDINGS: There is been interval placement of methylmethacrylate within the chronic T12 burst fractur e, moderate to severe loss of this height is unchanged. About 3 mm retropulsion of the superior endpl ate unchanged. There is a mild to moderate compression fracture of T11 which is new compared to that examination, wi th bone marrow edema in that vertebral body, could be acute or subacute. There are scattered small disc protrusions, some indenting the anterior aspect of the spinal cord, bu t the thoracic spinal canal is widely patent. Mild to moderate thoracic disc disease. Mild to moderat e left neural foraminal stenosis at T10-11, the most narrowed thoracic level. There is normal thoraci c cord signal. There is mild diffuse thoracic facet arthropathy. Paraspinal soft tissue is unremarkab le. IMPRESSION: 1. Development of mild to moderate T11 compression fracture which could be acute. 2. Chronic, treated T12 burst fracture. 3. Mild to moderate thoracic spondylosis. Reviewed, dictated and finalized at location A. ACCOUNTING MANAGER IMPRESSION: 1. Development of mild to moderate T11 compression fracture which could be acu te. 2. Chronic, treated T12 burst fracture. 3. Mild to moderate thoracic spondylosis.
== END 2020-09-06 11:22 | disposition home or self-care (01) ==
PROVIDERS: PCP Internal Medicine; Visit Provider Nurse Practitioner Adult Health
DX: M54.6 Pain in thoracic spine (principal); M47.894 Other spondylosis, thoracic region
CPT/HCPCS: 72146

== ENCOUNTER 2020-09-16 06:59 | Outpatient (NON) | payer MEDICARE, OTHER, SELFPAY ==
[2020-09-16 22:28] LABS: SARS-CoV-2 RNA PCR Negative
== END 2020-09-16 07:00 ==
LOC: ANHCOVIDDT 06:59
PROVIDERS: PCP Internal Medicine; Visit Provider Nurse Practitioner Adult Health
DX: Z01.812 Encounter for preprocedural laboratory examination (principal); Z20.822 Contact with and (suspected) exposure to COVID-19
CPT/HCPCS: C9803; U0003; U0005

== ENCOUNTER 2020-10-19 11:37 | Outpatient (CLI) | payer MEDICARE, OTHER, SELFPAY ==
--- NOTE | ~2020-10-19 | US_ITS ---
EXAMINATION: US venous doppler [facility] EXAM DATE: 10/19/2020 12:41 INDICATION: Left leg pain. TECHNIQUE: Multiple grayscale, color flow and Doppler images of the left lower extremity deep venous system were obtained and reviewed. There is no prior study for comparison. FINDINGS: The left common femoral, femoral and profunda veins demonstrate normal color flow, respirat ory variation, augmentation and compressibility. Compressibility, color flow confirmed within the le ft popliteal, posterior tibial, peroneal, and greater saphenous veins. IMPRESSION: No left lower extremity deep venous thrombosis. Reviewed, dictated and finalized at location A. R COACH CHAUFFEUR
[2020-10-19 12:20] LABS: Basophils Percent Auto 0.7 % (0.2-1.2); Eosinophils Percent Auto 0.7 % (0-4.4); Hematocrit 35.9 % (37.0-47.0); Hemoglobin 12.3 g/dL (12.0-15.0); Immature Granulocyte Absolute 0.03 K/mm3 (0.00-0.031); Immature Granulocyte Percent A 0.6 % (0-0.5); Lymphocytes Absolute Auto 1.13 K/mm3 (0.9-3.2); Lymphocytes Percent Auto 20.8 % (18.3-44.2); Mean Corpuscular HGB Conc 34.3 g/dl (32-36); Mean Corpuscular Hemoglobin 32.3 pg (26-34); Mean Corpuscular Volume 94.2 fl (80-100); Mean Platelet Volume 9.4 fl (7.4-10.4); Monocytes Absolute Auto 0.4 K/mm3 (0.1-0.6); Monocytes Percent Auto 8.1 % (2.6-8.5); Neutrophils Absolute Auto 3.8 K/mm3 (1.3-6.7); Neutrophils Percent Auto 69.1 % (45.5-73.1); Platelet Count Result 356 k/mm3 (150-375); Red Blood Count 3.81 M/mm3 (4.2-5.4); Red Cell Distribution Width 17.2 % (11.5-14.5); White Blood Count 5.4 K/mm3 (4.5-10.0)
[2020-10-19 12:35] LABS: Alanine Aminotransferase 23 U/L (4-35); Albumin Level 2.8 g/dL (3.5-5.1); Alkaline Phosphatase 145 U/L (38-126); Aspartate Amino Transferase 35 U/L (14-36); Bilirubin,Total 0.9 mg/dL (0.2-1.3); Cholesterol 178 mg/dL (0-200); Creatine Kinase 45 U/L (30-135); HDL Direct 92 mg/dL; Triglycerides 109 mg/dL (<150)
[2020-10-19 12:46] LABS: LDL Cholesterol Direct 63 mg/dL; Prealbumin 20.1 mg/dL (17.6-36.0)
[2020-10-19 13:05] LABS: Iron 91 ug/dL (37-170)
[2020-10-19 13:14] LABS: Percent Iron Saturation 47 % (20-50)
[2020-10-19 13:42] LABS: Folic Acid > 20.0 ng/mL (2.76->20); Vitamin B12 > 1000.0 pg/mL (239-931)
[2020-10-22 11:32] LABS: Vitamin B1 <6 nmol/L (8-30)
[2020-10-25 12:11] LABS: Vitamin B2 8.2 nmol/L (6.2-39.0)
== END 2020-10-19 11:38 | disposition home or self-care (01) ==
PROVIDERS: PCP Internal Medicine; Visit Provider Internal Medicine
DX: M79.605 Pain in left leg (principal); M79.89 Other specified soft tissue disorders; Z79.899 Other long term (current) drug therapy; D64.9 Anemia, unspecified; I10 Essential (primary) hypertension; R53.1 Weakness; E53.8 Deficiency of other specified B group vitamins; R63.4 Abnormal weight loss
CPT/HCPCS: 36415; 80061; 80076; 82550; 82607; 82728; 82746; 83540; 83550; 84134; 84207; 84252; 84425; 85025; 93971

== ENCOUNTER 2020-11-28 13:17 | Outpatient (CLI) | payer MEDICARE, OTHER, SELFPAY | END 2020-11-28 13:18 | disposition home or self-care (01) | LOC: ANHCOVIDVC 13:18 | PROVIDERS: PCP Internal Medicine | DX: Z23 Encounter for immunization (principal) | CPT/HCPCS: 0001A; 91300 ==

== ENCOUNTER 2020-12-19 13:11 | Outpatient (CLI) | payer MEDICARE, OTHER, SELFPAY | END 2020-12-19 13:12 | disposition home or self-care (01) | LOC: ANHCOVIDVC 13:11 | PROVIDERS: PCP Internal Medicine | DX: Z23 Encounter for immunization (principal) | CPT/HCPCS: 0002A; 91300 ==

== ENCOUNTER 2021-02-02 10:30 | Outpatient (CLI) | payer MEDICARE, OTHER, SELFPAY ==
[2021-02-02 10:53] LABS: Basophils Absolute Auto 0.1 K/mm3 (0.0-0.1); Eosinophils Absolute Auto 0.3 K/mm3 (0-0.3); Eosinophils Percent Auto 4.1 % (0-4.4); Hematocrit 31.1 % (37.0-47.0); Hemoglobin 9.3 g/dL (12.0-15.0); Immature Granulocyte Absolute 0.03 K/mm3 (0.00-0.031); Immature Granulocyte Percent A 0.4 % (0-0.5); Lymphocytes Absolute Auto 0.87 K/mm3 (0.9-3.2); Lymphocytes Percent Auto 12.9 % (18.3-44.2); Mean Corpuscular HGB Conc 29.9 g/dl (32-36); Mean Corpuscular Hemoglobin 30.3 pg (26-34); Mean Corpuscular Volume 101.3 fl (80-100); Mean Platelet Volume 9.7 fl (7.4-10.4); Monocytes Absolute Auto 0.6 K/mm3 (0.1-0.6); Monocytes Percent Auto 8.9 % (2.6-8.5); Neutrophils Absolute Auto 4.9 K/mm3 (1.3-6.7); Neutrophils Percent Auto 72.7 % (45.5-73.1); Platelet Count Result 365 k/mm3 (150-375); Red Blood Count 3.07 M/mm3 (4.2-5.4); Red Cell Distribution Width 13.6 % (11.5-14.5); White Blood Count 6.8 K/mm3 (4.5-10.0)
[2021-02-02 11:20] LABS: Iron 68 ug/dL (37-170)
[2021-02-02 11:29] LABS: Percent Iron Saturation 21 % (20-50)
[2021-02-02 11:38] LABS: Free T4 Free Thyroxine 1.13 ng/mL (0.78-2.19)
[2021-02-02 11:39] LABS: Anisocytosis 1+ (NORMAL); Macrocytosis 1+ (NORMAL); Platelet Estimate Adequate (Adequate)
[2021-02-02 11:47] LABS: Thyroid Stimulating Hormone 0.913 uIU/mL (0.465-4.680)
[2021-02-02 12:31] LABS: Folic Acid > 20.0 ng/mL (2.76->20)
--- NOTE | 2021-02-02 13:37 | ECHO_ITS ---
Patient Info Name: Juliet Weinstein Age: 70 years : 1950 Gender: Female Ht: 67 in Wt: 132 lbs BSA: 1.68 m2 HR: 87 bpm BP: 136 / 91 mmHg Technical Quality: Good Exam Date: 02/02/2021 1:54 PM Exam Location: [facility] Patient Status: Outpatient Admit Date: 02/02/2021 Staff Ordering Physician: Davey Klein MD Industrial Gas Fitter: Davide Wilson, ABDIEL, RT Attending Provider: Davey Klein MD Referring Physician: Ernie RAND; Exam Type: CA echo doppler color flow Study Info Indications R60.9 - Edema, unspecified Complete two-dimensional, color flow and Doppler transthoracic echocardiogram is performed. Summary 1. Complete two-dimensional, color flow and Doppler transthoracic echocardiogram is performed. 2. Left ventricular chamber dimension is normal. 3. Left ventricular systolic function is normal, estimated at 60-65%. 4. The left ventricular diastolic function is normal. 5. E/e' 9 is minimally elevated. 6. Global longitudinal strain is normal at -20.3%. 7. Left atrial chamber dimension is mildly enlarged. 8. There is mild mitral valve regurgitation. 9. There is trace tricuspid valve regurgitation. 10. No pulmonary hypertension, estimated pulmonary arterial systolic pressure is 30 mmHg. Left Ventricle Global longitudinal strain is normal at -20.3%. E/e' 9 is minimally elevated. Left ventricular chamber dimension is normal. Left ventricular systolic function is normal, estimated at 60-65%. The left ventricular diastolic function is normal. Right Ventricle Right ventricular systolic function is normal and with normal TAPSE 2.1 cm. Right ventricular chamber dimension is normal. Left Atria Left atrial chamber dimension is mildly enlarged. Right Atria Right atrial chamber dimension is normal. Aortic Valve The aortic valve is trileaflet. There is no aortic valve stenosis. There is no aortic valve regurgitation. Pulmonic Valve There is no pulmonic regurgitation. Mitral Valve There is no mitral valve stenosis. There is mild mitral valve regurgitation. Tricuspid Valve There is trace tricuspid valve regurgitation. No pulmonary hypertension, estimated pulmonary arterial systolic pressure is 30 mmHg. Pericardium/Pleural There is no pericardial effusion. Inferior Vena Cava Normal inferior vena cava with >50% collapse upon inspiration consistent with normal right atrial pressure, 5 mmHg. Aorta The aortic root size at the sinus of Valsalva is normal. Left Ventricular Outflow Tract Name Value Normal LVOT 2D LVOT Diameter 1.9 cm LVOT Doppler LVOT Peak Gradient 3 mmHg LVOT Mean Gradient 2 mmHg LVOT VTI 21 cm LVOT VTI/AV VTI Ratio 0.8 LVOT Stroke Volume 59 ml LVOT CO 4.6 l/min LVOT CI 2.7 l/min/m2 Mitral Valve Name Value Normal ---------
== END 2021-02-02 10:31 | disposition home or self-care (01) ==
PROVIDERS: PCP Internal Medicine; Visit Provider Internal Medicine
DX: R60.1 Generalized edema (principal); I10 Essential (primary) hypertension; K92.1 Melena; Z79.899 Other long term (current) drug therapy; E53.8 Deficiency of other specified B group vitamins
CPT/HCPCS: 36415; 82607; 82728; 82746; 83540; 83550; 84439; 84443; 85025; 93306

== ENCOUNTER 2021-03-16 12:34 | Outpatient (CLI) | payer MEDICARE, OTHER, SELFPAY ==
[2021-03-16 13:10] LABS: Basophils Absolute Auto 0.1 K/mm3 (0.0-0.1); Basophils Percent Auto 0.9 % (0.2-1.2); Eosinophils Absolute Auto 0.1 K/mm3 (0-0.3); Eosinophils Percent Auto 2.1 % (0-4.4); Hematocrit 39.3 % (37.0-47.0); Hemoglobin 12.2 g/dL (12.0-15.0); Immature Granulocyte Absolute 0.02 K/mm3 (0.00-0.031); Immature Granulocyte Percent A 0.4 % (0-0.5); Immature Reticulocyte Fraction 6.9 % (3.0-15.9); Lymphocytes Absolute Auto 0.94 K/mm3 (0.9-3.2); Lymphocytes Percent Auto 16.8 % (18.3-44.2); Mean Corpuscular Volume 96.8 fl (80-100); Mean Platelet Volume 10.3 fl (7.4-10.4); Monocytes Absolute Auto 0.5 K/mm3 (0.1-0.6); Monocytes Percent Auto 9.1 % (2.6-8.5); Neutrophils Percent Auto 70.7 % (45.5-73.1); Platelet Count Result 263 k/mm3 (150-375); Red Blood Count 4.06 M/mm3 (4.2-5.4); Red Cell Distribution Width 14.8 % (11.5-14.5); Reticulocyte Hemoglobin Conten 36.3 pg (28.2-35.7); Reticulocyte Percent 1.64 % (0.7-4.3); Reticulocytes Absolute 0.07 B/L (32.2-175.7); White Blood Count 5.6 K/mm3 (4.5-10.0)
[2021-03-16 16:41] LABS: Alanine Aminotransferase 16 U/L (4-35); Albumin Level 4.2 g/dL (3.5-5.1); Alkaline Phosphatase 98 U/L (38-126); Anion Gap 9 mmol/L (8-16); Aspartate Amino Transferase 21 U/L (14-36); Bilirubin,Total 0.5 mg/dL (0.2-1.3); Blood Urea Nitrogen 12 mg/dL (7-17); Calcium 9.7 mg/dL (8.4-10.2); Carbon Dioxide 26 mmol/L (22-30); Chloride 105 mmol/L (98-107); Estimated Glomerular Filt Rate > 60; Glucose 100 mg/dL (65-110); Lactate Dehydrogenase 340 U/L (313-618); Potassium 4.7 mmol/L (3.4-5.0); Sodium 140 mmol/L (137-145)
[2021-03-16 17:10] LABS: Thyroid Stimulating Hormone 0.836 uIU/mL (0.465-4.680)
[2021-03-16 19:55] LABS: Folic Acid > 20.0 ng/mL (2.76->20)
[2021-03-16 21:12] LABS: Iron 33 ug/dL (37-170)
[2021-03-16 21:22] LABS: Percent Iron Saturation 8 % (20-50)
[2021-03-20 07:16] LABS: Methylmalonic Acid 111 nmol/L (87-318)
[2021-03-20 13:55] LABS: Soluble Transferrin Receptor 1.61 mg/L (0.76-1.76)
== END 2021-03-16 12:35 | disposition home or self-care (01) ==
PROVIDERS: PCP Internal Medicine; Visit Provider Internal Medicine Hematology & Oncology
DX: D64.9 Anemia, unspecified (principal)
CPT/HCPCS: 36415; 80053; 82607; 82728; 82746; 83540; 83550; 83615; 83921; 84238; 84443; 85025; 85046

== ENCOUNTER 2021-04-25 09:15 | Outpatient (CLI) | payer MEDICARE, OTHER, SELFPAY ==
[2021-04-25 09:58] LABS: Anion Gap 7 mmol/L (8-16); Blood Urea Nitrogen 13 mg/dL (7-17); Calcium 9.3 mg/dL (8.4-10.2); Carbon Dioxide 28 mmol/L (22-30); Chloride 107 mmol/L (98-107); Estimated Glomerular Filt Rate > 60; Glucose 96 mg/dL (65-110); Phosphorus 4.8 mg/dL (2.5-4.5); Potassium 4.2 mmol/L (3.4-5.0); Sodium 142 mmol/L (137-145)
== END 2021-04-25 09:16 | disposition home or self-care (01) ==
PROVIDERS: PCP Internal Medicine; Visit Provider Internal Medicine Nephrology
DX: E87.1 Hypo-osmolality and hyponatremia (principal)
CPT/HCPCS: 36415; 80069

== ENCOUNTER 2021-05-31 11:20 | Emergency (ER) | payer MEDICARE, OTHER, SELFPAY ==
--- NOTE | ~2021-05-31 | CT_ITS ---
EXAMINATION: CT abdomen pelvis w con DATE: 05/31/2021 14:23 INDICATION: Lower abdominal pain. Blood in stool. TECHNIQUE: Computed tomography (CT) of the abdomen and pelvis was performed with 100 mL Omnipaque-350 intravenous contrast. Automated exposure control and iterative reconstruction technique were employe d. The dose-length product was 389.94 mGy-cm. COMPARISON: 03/22/2020 FINDINGS: Mild left basilar atelectasis. Heart size is normal. Atherosclerotic coronary artery calcific locatio n. No pericardial or pleural effusion. Postoperative change of prior Ivania-en-Y gastric bypass procedu re. 6 mm low-attenuation cyst in the left hepatic lobe. Gallbladder is not visualized and likely surg ically absent. Splenic calcification consistent with old granulomatous disease. Pancreas, bilateral a drenal glands and kidneys are normal. The appendix is not visualized. No pericecal inflammatory valdivia e to suggest acute appendicitis. No bowel obstruction. There is moderate colonic diverticulosis with a sigmoid predominance. There is no adjacent inflammatory change to suggest diverticulitis. Bladder is normal. The uterus and bilateral ovaries are not identified and have likely been surgically resec josef. 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 Multiple phleboliths in the pelvis. No free intrap eritoneal gas or fluid. No pathologically enlarged abdominal or pelvic lymphadenopathy. L4 laminectom y. Unchanged 7 mm anterolisthesis L4 on L5 combined noncemented anterior and posterior spinal fusion at this level with interbody bone graft cages and bilateral vertical cat and pedicle screws. Chronic T11 and T12 compression fractures with approximately 50% anterior vertebral body height loss and juares ges of vertebral plasties at both levels. At T12 there is extravasation of methylmethacrylate both in to the T11-T12 disc space as well as into an internally draining vertebral vein. IMPRESSION: 1. No acute intra-abdominal/pelvic process. 2. Diverticulosis. 3. Multiple postoperative changes as detailed above. Reviewed, dictated and finalized at location A.
[2021-05-31 11:50] VITALS: BP 111/80; PULSE 91; RESP 14; TEMP 36.7; O2SAT 99
[2021-05-31 12:02] LABS: Basophils Absolute Auto 0.1 K/mm3 (0.0-0.1); Basophils Percent Auto 0.8 % (0.2-1.2); Eosinophils Absolute Auto 0.2 K/mm3 (0-0.3); Eosinophils Percent Auto 2.5 % (0-4.4); Hematocrit 38.8 % (37.0-47.0); Hemoglobin 12.8 g/dL (12.0-15.0); Immature Granulocyte Absolute 0.02 K/mm3 (0.00-0.031); Immature Granulocyte Percent A 0.3 % (0-0.5); Lymphocytes Absolute Auto 1.79 K/mm3 (0.9-3.2); Mean Corpuscular Volume 103.2 fl (80-100); Mean Platelet Volume 10.4 fl (7.4-10.4); Monocytes Absolute Auto 0.5 K/mm3 (0.1-0.6); Monocytes Percent Auto 7.2 % (2.6-8.5); Neutrophils Absolute Auto 4.9 K/mm3 (1.3-6.7); Neutrophils Percent Auto 65.2 % (45.5-73.1); Platelet Count Result 277 k/mm3 (150-375); Red Blood Count 3.76 M/mm3 (4.2-5.4); Red Cell Distribution Width 13.9 % (11.5-14.5); White Blood Count 7.5 K/mm3 (4.5-10.0)
[2021-05-31 12:28] LABS: Alanine Aminotransferase 16 U/L (4-35); Albumin Level 4.2 g/dL (3.5-5.1); Alkaline Phosphatase 83 U/L (38-126); Anion Gap 6 mmol/L (8-16); Aspartate Amino Transferase 24 U/L (14-36); Bilirubin,Total 0.6 mg/dL (0.2-1.3); Blood Urea Nitrogen 12 mg/dL (7-17); Calcium 9.2 mg/dL (8.4-10.2); Carbon Dioxide 25 mmol/L (22-30); Chloride 109 mmol/L (98-107); Estimated Glomerular Filt Rate > 60; Glucose 124 mg/dL (65-110); Lipase 55 U/L (23-300); Potassium 4.7 mmol/L (3.4-5.0); Sodium 140 mmol/L (137-145)
[2021-05-31 13:15] LABS: Add Urine Microscopic? YES; Appearance Urine Clear (Clear); Bilirubin Urine Negative (Negative); Calcium Oxalate Crystals Urine Many /hpf; Color Urine Yellow (Yellow); Glucose Urine UA Negative (Negative); Ketones Urine Negative (Negative); Leukocyte Esterase Ur Negative LEU/UL (Negative); Mucus Urine Rare /lpf; Nitrate Urine Negative (Negative); Protein Urine Negative (Negative); Specific Grav Ur 1.021 (1.001-1.035); Squamous Epithelial Cell Urine Occasional /hpf (Few)
[2021-05-31 13:22] LABS: Blood Urine Negative (Negative)
--- NOTE | 2021-05-31 13:48 | ED.NAVMDI ---
HPI - Nausea/Vomiting/Diarrhea General Chief complaint: Nausea/Vomiting/Diarrhea Stated complaint: rectal bleeding Time Seen by Provider: 05/31/21 13:32 Source: patient History of Present Illness HPI Narrative: Patient presents with lower abdominal pain, diarrhea nausea and dysuria. Patient also reports increased urinary frequency and urgency. pain is in the lower abdomen achy, constant, radiates to her right mid back. Patient does report trace blood associated with diarrhea she denies melena lightheadedness or weakness. Denies fevers Related Data Home Medications Medication Instructions Recorded Confirmed multivitamin 1 tablet PO DAILY 06/22/19 04/12/21 polyethylene glycol 3350 17 gram 17 g PO BID ea 08/16/20 04/12/21 oral powder packet fluticasone propionate 50 2 spray INTRANASAL DAILY 08/25/20 04/12/21 mcg/actuation nasal spray,suspension Allergies Allergy/AdvReac Type Severity Reaction Status Date / Time tetanus immune globulin Allergy Severe FEVER, FLU Verified 04/27/21 08:00 SX. cefaclor Allergy Unknown Hives Verified 04/27/21 08:00 tetanus toxoid, adsorbed Allergy Unknown Unknown Verified 04/27/21 08:00 Tetanus Vaccines and Toxoid Allergy Unknown Unknown Verified 04/27/21 08:00 adhesive tape AdvReac Unknown Other Verified 04/27/21 08:00 Review of Systems Review of Systems: CONSTITUTIONAL: Denies fever, chills, or sweats. EYES: Denies visual changes, redness, or discharge. ENT: Denies rhinorrhea, congestion, sore throat, or otalgia. CARDIOVASCULAR: Denies chest pain, palpitations, or edema. RESPIRATORY: Denies cough or dyspnea. GASTROINTESTINAL: Reports abdominal pain nausea and diarrhea GENITOURINARY: Denies dysuria or hematuria. SKIN: Denies rash or itching. MUSCULOSKELETAL: Denies joint pain, or myalgia. NEUROLOGIC: Denies headache, numbness, dizziness, or weakness. PSYCHIATRIC: Denies anxiety or depression. All systems reviewed & are unremarkable except as noted in HPI and below PMFSH Past Medical History Medical History Abdominal pain Adult BMI 19-24 kg/sq m Anorexia Anxiety with depression Back pain Basal cell carcinoma of nose Belching Benign essential hypertension Benign fundic gland polyps of stomach (~05/2017) BMI 20.0-20.9, adult BMI 21.0-21.9, adult BMI 22.0-22.9, adult BMI 25.0-25.9,adult Burst fracture of T12 vertebra Chronic back pain Chronic nausea Chronic sinusitis Confusion Constipation Debility Diarrhea Diverticulosis Dizziness Eczema Edema Elevated homocysteine Elevated LFTs Fall Fatigue Follow up Follow up Gastroesophageal reflux disease Hip pain History of hypertension Hyperplastic polyp of sigmoid colon Hyponatremia Impacted cerumen of both ears Ingrowing eyelash of lower lid Iron deficiency anemia Mild reactive airways disease Numbness of both lower extremities Numbness of upper extremity Pedal edema Physical debility Restless leg syndrome Sinusitis SOB (shortness of breath) Unsteady gait URI (upper respiratory infection) Vitamin B 12 deficiency Vitamin B deficiency Vitamin B12 deficiency Vitamin D deficiency Weakness Weight loss Surgical History Surgical History History of appendectomy History of cholecystectomy History of exploratory laparotomy (~10/2003) Removal of anterior abdominal wall mass (benign fibroid), adhesiolysis, and bilateral salpingo-oophorectomy with bladder repair. History of gastric bypass History of lumbar fusion History of vaginal hysterectomy Status post functional endoscopic sinus surgery And bilateral maxillary antrostomy. Status post surgical removal of malignant neoplasm of skin Excision basal cell carcinoma from the bridge of the nose. Family History Family History Sibling Family history of lung cancer Patient's sister is Father Fam
[2021-05-31] MEDS: SODIUM CHLORIDE 0.9% IV 1,000 ML 999 ML IV CONT (14:05)
[2021-05-31 14:07] VITALS: BP 123/89; PULSE 80; RESP 18; O2SAT 100
[2021-05-31 15:56] VITALS: BP 128/82; PULSE 81; RESP 18; O2SAT 99
== END 2021-05-31 16:15 | disposition home or self-care (01) ==
PROVIDERS: Emergency Medicine; Emergency Provider Emergency Medicine; PCP Internal Medicine
DX: N10 Acute pyelonephritis (principal); Z85.828 Personal history of other malignant neoplasm of skin; I10 Essential (primary) hypertension; K21.9 Gastro-esophageal reflux disease without esophagitis; Z87.19 Personal history of other diseases of the digestive system; D50.9 Iron deficiency anemia, unspecified; G25.81 Restless legs syndrome; E53.8 Deficiency of other specified B group vitamins; E53.9 Vitamin B deficiency, unspecified; E55.9 Vitamin D deficiency, unspecified; Z98.84 Bariatric surgery status; Z98.1 Arthrodesis status; K57.90 Diverticulosis of intestine, part unspecified, without perforation or abscess without bleeding
CPT/HCPCS: 36415; 74177; 80053; 81001; 83690; 85025; 87086; 87088; 96365; 96366; 99284; J0131; J7030; Q9967

== ENCOUNTER 2021-08-21 12:53 | Outpatient (CLI) | payer MEDICARE, OTHER, SELFPAY ==
[2021-08-21 13:11] LABS: Basophils Absolute Auto 0.1 K/mm3 (0.0-0.1); Basophils Percent Auto 1.2 % (0.2-1.2); Eosinophils Absolute Auto 0.3 K/mm3 (0-0.3); Hematocrit 44.8 % (37.0-47.0); Hemoglobin 14.7 g/dL (12.0-15.0); Immature Granulocyte Absolute 0.01 K/mm3 (0.00-0.031); Immature Granulocyte Percent A 0.2 % (0-0.5); Lymphocytes Absolute Auto 0.91 K/mm3 (0.9-3.2); Lymphocytes Percent Auto 13.9 % (18.3-44.2); Mean Corpuscular HGB Conc 32.8 g/dl (32-36); Mean Corpuscular Hemoglobin 33.6 pg (26-34); Mean Corpuscular Volume 102.3 fl (80-100); Mean Platelet Volume 10.1 fl (7.4-10.4); Monocytes Absolute Auto 0.5 K/mm3 (0.1-0.6); Monocytes Percent Auto 7.2 % (2.6-8.5); Neutrophils Absolute Auto 4.8 K/mm3 (1.3-6.7); Neutrophils Percent Auto 73.5 % (45.5-73.1); Platelet Count Result 264 k/mm3 (150-375); Red Blood Count 4.38 M/mm3 (4.2-5.4); Red Cell Distribution Width 12.3 % (11.5-14.5); White Blood Count 6.6 K/mm3 (4.5-10.0)
[2021-08-21 13:24] LABS: Alanine Aminotransferase 17 U/L (4-35); Albumin Level 4.6 g/dL (3.5-5.1); Alkaline Phosphatase 122 U/L (38-126); Anion Gap 11 mmol/L (8-16); Aspartate Amino Transferase 27 U/L (14-36); Bilirubin,Total 0.6 mg/dL (0.2-1.3); Blood Urea Nitrogen 15 mg/dL (7-17); Calcium 9.6 mg/dL (8.4-10.2); Carbon Dioxide 27 mmol/L (22-30); Chloride 103 mmol/L (98-107); Cholesterol 250 mg/dL (0-200); Estimated Glomerular Filt Rate > 60; Glucose 103 mg/dL (65-110); HDL Direct 103 mg/dL; Potassium 4.3 mmol/L (3.4-5.0); Sodium 141 mmol/L (137-145); Triglycerides 154 mg/dL (<150)
[2021-08-21 13:34] LABS: LDL Cholesterol Direct 128 mg/dL
[2021-08-21 13:40] LABS: Free T4 Free Thyroxine 0.98 ng/mL (0.78-2.19)
== END 2021-08-21 12:54 | disposition home or self-care (01) ==
PROVIDERS: PCP Internal Medicine; Visit Provider Internal Medicine
DX: D50.9 Iron deficiency anemia, unspecified (principal); I10 Essential (primary) hypertension; E03.9 Hypothyroidism, unspecified; R73.9 Hyperglycemia, unspecified
CPT/HCPCS: 36415; 80053; 80061; 83036; 84439; 84443; 85025

== ENCOUNTER 2021-10-26 11:06 | Outpatient (CLI) | payer MEDICARE, OTHER, SELFPAY ==
[2021-10-26 11:27] LABS: Basophils Absolute Auto 0.1 K/mm3 (0.0-0.1); Basophils Percent Auto 1.1 % (0.2-1.2); Eosinophils Absolute Auto 0.2 K/mm3 (0-0.3); Eosinophils Percent Auto 3.5 % (0-4.4); Hematocrit 43.9 % (37.0-47.0); Immature Granulocyte Absolute 0.02 K/mm3 (0.00-0.031); Immature Granulocyte Percent A 0.3 % (0-0.5); Lymphocytes Percent Auto 18.9 % (18.3-44.2); Mean Corpuscular HGB Conc 31.9 g/dl (32-36); Mean Corpuscular Volume 106.6 fl (80-100); Monocytes Absolute Auto 0.5 K/mm3 (0.1-0.6); Monocytes Percent Auto 8.5 % (2.6-8.5); Neutrophils Absolute Auto 4.3 K/mm3 (1.3-6.7); Neutrophils Percent Auto 67.7 % (45.5-73.1); Platelet Count Result 295 k/mm3 (150-375); Red Blood Count 4.12 M/mm3 (4.2-5.4); White Blood Count 6.3 K/mm3 (4.5-10.0)
[2021-10-26 12:21] LABS: Alanine Aminotransferase 16 U/L (4-35); Albumin Level 4.6 g/dL (3.5-5.1); Alkaline Phosphatase 128 U/L (38-126); Anion Gap 7 mmol/L (8-16); Aspartate Amino Transferase 55 U/L (14-36); Bilirubin,Total 0.7 mg/dL (0.2-1.3); Blood Urea Nitrogen 14 mg/dL (7-17); Calcium 8.8 mg/dL (8.4-10.2); Carbon Dioxide 30 mmol/L (22-30); Chloride 102 mmol/L (98-107); Cholesterol 237 mg/dL (0-200); Estimated Glomerular Filt Rate > 60; Glucose 105 mg/dL (65-110); HDL Direct 102 mg/dL; Potassium 4.2 mmol/L (3.4-5.0); Sodium 139 mmol/L (137-145); Triglycerides 138 mg/dL (<150)
[2021-10-26 12:24] LABS: Hemoglobin A1C 4.7 % (<5.7)
[2021-10-26 12:27] LABS: Add Urine Microscopic? NO; Appearance Urine Clear (Clear); Bilirubin Urine Negative (Negative); Blood Urine Negative (Negative); Color Urine Yellow (Yellow); Glucose Urine UA Negative (Negative); Ketones Urine Negative (Negative); Leukocyte Esterase Ur Negative LEU/UL (Negative); Nitrate Urine Negative (Negative); Protein Urine Negative (Negative); Specific Grav Ur 1.008 (1.001-1.035); Urobilinogen Urine Negative mg/dL (<2.0)
[2021-10-26 12:32] LABS: LDL Cholesterol Direct 87 mg/dL
[2021-10-26 12:37] LABS: Free T4 Free Thyroxine 1.01 ng/mL (0.78-2.19)
== END 2021-10-26 11:07 | disposition home or self-care (01) ==
PROVIDERS: PCP Internal Medicine; Visit Provider Internal Medicine
DX: Z79.899 Other long term (current) drug therapy (principal); R73.9 Hyperglycemia, unspecified; E78.5 Hyperlipidemia, unspecified; I10 Essential (primary) hypertension
CPT/HCPCS: 36415; 80053; 80061; 81003; 83036; 84439; 84443; 85025

== ENCOUNTER → 2021-10-30 15:09 | Outpatient (CLI) | payer MEDICARE, OTHER, SELFPAY ==
--- NOTE | ~2021-10-30 | XR_ITS ---
XR lumbar spine 2-3V 10/30/2021 15:38 Indication: Radiculopathy Procedure: 3 views lumbar spine Comparison: 08/25/2020 Findings: There are chronic burst fractures of T11 and T12 with vertebroplasty changes. There are pos terior spinal fusion changes at L4-5 with prosthetic intervertebral disc. Disc alignment is unchanged . There is grade 2 spondylolisthesis at L4-5. Pedicle screws appear to be intact. There is dextroscol iosis. Osteopenia. No acute fracture or traumatic malalignment. There is lower lumbar facet hypertrop hy. Impression: 1: No acute abnormality of the lumbar spine. 2: Chronic burst fractures of T11 and T12 with vertebroplasty change. 3: Posterior spinal fusion with discectomy at L4-5 with grade 2 spondylolisthesis. Reviewed, dictated and finalized at location B. Impression: 1: No acute abnormality of the lumbar spine. 2: Chronic burst fractures of T11 and T12 with vertebroplasty change. 3: Posterior spinal fusion with discectomy at L4-5 with grade 2 spondylolisthes is.
--- NOTE | ~2021-10-30 | XR_ITS ---
XR thoracic spine 3V DATE: 10/30/2021 15:38 INDICATION: Thoracic back pain, radiculopathy. TECHNIQUE: AP and lateral and swimmer's standing views COMPARISON: 02/14/2017 thoracic spine 09/06/2020 MR thoracic spine FINDINGS: Status post vertebroplasty at prominent T11 compression fracture and T12 burst fracture. No interval fracture or dislocation is detected. There is however prominent increased levoscoliosis of the thoracic spine since 02/14/2017. Diffuse osteopenia. IMPRESSION: Prominent levoscoliosis, increased since 2016 Status post vertebroplasty at T11 compression fracture and T12 burst fracture Osteopenia Reviewed, dictated and finalized at location A.
== END ==
PROVIDERS: Visit Provider Nurse Practitioner Adult Health
DX: S22.081A Stable burst fracture of T11-T12 vertebra, initial encounter for closed fracture (principal); Z98.1 Arthrodesis status; M41.9 Scoliosis, unspecified
CPT/HCPCS: 72072; 72100

== ENCOUNTER 2021-12-04 13:42 | Outpatient (CLI) | payer MEDICARE, OTHER, SELFPAY ==
--- NOTE | ~2021-12-04 | XR_ITS ---
EXAM: XR lumbar spine 2-3V HISTORY: W19.XXXA - Unspecified fall, initial encounter, FALL X1 WEEK COMPARISON: 10/30/2021. FINDINGS: 5 nonrib-bearing lumbar-type vertebral bodies, hypoplastic ribs at T12. L4-5 posterior fus ion, no hardware fracture, lucency, or interbody device position change. Vertebral body cement in the lower thoracic spine. Multiple surgical clips and phleboliths project over the pelvis. Stable grade 2 anterolisthesis of L4 on L5. Scoliosis. Osteopenia. IMPRESSION: No acute fracture or traumatic malalignment in the lumbar spine. L4-5 posterior fusion, without hardw are-related complication. Reviewed, dictated and finalized at location K. IMPRESSION: No acute fracture or traumatic malalignment in the lumbar spine. L4-5 posterior fusion, without hardware-related complication.
--- NOTE | ~2021-12-04 | XR_ITS ---
EXAMINATION: XR hip RT 2V w AP pelvis DATE: 12/04/2021 14:20 INDICATION: Low back pain post fall one week prior TECHNIQUE: Anteroposterior view of the pelvis and anteroposterior and frog-leg lateral views of the r ight hip were obtained. COMPARISON: None. FINDINGS: Alignment is normal. Old healed fracture along the left inferior pubic ramus. There is an additional nondisplaced fracture, new since CT dated 05/31/2021 involving the right inferior pubic ramus. No oth er fractures identified. Mild left and mild to moderate right hip osteoarthritis. Numerous phlebolith s in the pelvis. Surgical clips in the left hemipelvis. Transitional L5 segment which is sacralized o n the left. L4-L5 posterior spinal fusion with bilateral vertical cat and pedicle screw fixation. IMPRESSION: 1. Age-indeterminate nondisplaced fracture involving the right inferior pubic ramus new since 021. Reviewed, dictated and finalized at location A. IMPRESSION: 1. Age-indeterminate nondisplaced fracture involving the right inferior pubic r amus new since 05/31/2021.
== END 2021-12-04 13:43 | disposition home or self-care (01) ==
PROVIDERS: PCP Internal Medicine; Visit Provider Internal Medicine
DX: M54.9 Dorsalgia, unspecified (principal); R10.2 Pelvic and perineal pain; M25.551 Pain in right hip; S22.081D Stable burst fracture of T11-T12 vertebra, subsequent encounter for fracture with routine healing; X58.XXXD Exposure to other specified factors, subsequent encounter
CPT/HCPCS: 72100; 73502

== ENCOUNTER 2021-12-04 16:10 | Emergency (ER) | payer MEDICARE, OTHER, SELFPAY ==
[2021-12-04 16:34] VITALS: BP 163/118; PULSE 85; RESP 12; TEMP 36.6; O2SAT 100
--- NOTE | 2021-12-04 17:49 | ED.FALL ---
HPI - Fall General Chief Complaint: Fall Stated Complaint: pelvis fracture, fall Time Seen by Provider: 12/04/21 17:34 History of Present Illness HPI Narrative: 8-year-old female presenting to the emergency room for further evaluation of a right hip pain. Patient states 1 week ago she slipped and fell in the shower landing on her right hip. States today she followed up with her PCP, and he recommended outpatient imaging. X-rays of her hip shows a nondisplaced right pubic fracture. Patient has been ambulatory since the injury. Related Data Home Medications Medication Instructions Recorded Confirmed multivitamin 1 tablet PO DAILY 06/22/19 10/26/21 polyethylene glycol 3350 17 gram 17 g PO BID ea 08/16/20 10/26/21 oral powder packet Allergies Allergy/AdvReac Type Severity Reaction Status Date / Time tetanus immune globulin Allergy Severe FEVER, FLU Verified 12/04/21 13:09 SX. cefaclor Allergy Unknown Hives Verified 12/04/21 13:09 tetanus toxoid, adsorbed Allergy Unknown Unknown Verified 12/04/21 13:09 Tetanus Vaccines and Toxoid Allergy Unknown Unknown Verified 12/04/21 13:09 adhesive tape AdvReac Unknown Other Verified 12/04/21 13:09 Review of Systems Review of Systems: CONSTITUTIONAL: Denies fever, chills, or sweats. EYES: Denies visual changes, redness, or discharge. ENT: Denies rhinorrhea, congestion, sore throat, or otalgia. CARDIOVASCULAR: Denies chest pain, palpitations, or edema. RESPIRATORY: Denies cough or dyspnea. GASTROINTESTINAL: Denies abdominal pain, nausea, vomiting, or diarrhea. GENITOURINARY: Denies dysuria or hematuria. SKIN: Denies rash or itching. MUSCULOSKELETAL: Reports right hip pain NEUROLOGIC: Denies headache, numbness, dizziness, or weakness. PSYCHIATRIC: Denies anxiety or depression. [facility] Past Medical History Medical History Abdominal pain Adult BMI 19-24 kg/sq m Anorexia Anxiety with depression Back pain Basal cell carcinoma of nose Belching Benign essential hypertension Benign fundic gland polyps of stomach (~05/2017) BMI 20.0-20.9, adult BMI 21.0-21.9, adult BMI 22.0-22.9, adult BMI 23.0-23.9, adult BMI 25.0-25.9,adult Burst fracture of T12 vertebra Chronic back pain Chronic nausea Chronic sinusitis Cognitive dysfunction Colon cancer screening Confusion Constipation Debility Diarrhea Diverticulosis Dizziness DJD (degenerative joint disease), multiple sites Eczema Edema Elevated homocysteine Elevated LFTs Encounter for routine adult health examination with abnormal findings Encounter for routine adult health examination without abnormal findings Fall Fatigue Follow up Follow up Gastroesophageal reflux disease Hip pain History of hypertension Hx of colonic polyps Hyperplastic polyp of sigmoid colon Hyponatremia Impacted cerumen of both ears Ingrowing eyelash of lower lid Iron deficiency anemia Mass of head Mild reactive airways disease Numbness of both lower extremities Numbness of upper extremity Pedal edema Peripheral neuropathy Physical debility Restless leg syndrome Right hip pain RLS (restless legs syndrome) Seasonal allergies Sinusitis SOB (shortness of breath) Unsteady gait URI (upper respiratory infection) Vitamin B 12 deficiency Vitamin B deficiency Vitamin B12 deficiency Vitamin D deficiency Weakness Weight loss Surgical History Surgical History History of appendectomy History of cholecystectomy History of exploratory laparotomy (~10/2003) Removal of anterior abdominal wall mass (benign fibroid), adhesiolysis, and bilateral salpingo-oophorectomy with bladder repair. History of gastric bypass History of lumbar fusion History of vaginal hysterectomy Status post functional endoscopic sinus surgery And bilateral maxillary antrostomy. Status post surgical removal of malignant neoplasm of skin Excision basal cell carcinoma from the
[2021-12-04 18:01] VITALS: BP 157/104
== END 2021-12-04 18:44 | disposition home or self-care (01) ==
LOC: ANHED 18:17
PROVIDERS: Emergency Provider Nurse Practitioner Family; PCP Internal Medicine
DX: S32.501A Unspecified fracture of right pubis, initial encounter for closed fracture (principal); I10 Essential (primary) hypertension; D50.9 Iron deficiency anemia, unspecified; J45.909 Unspecified asthma, uncomplicated; G62.9 Polyneuropathy, unspecified; G25.81 Restless legs syndrome; K21.9 Gastro-esophageal reflux disease without esophagitis; E53.8 Deficiency of other specified B group vitamins; E55.9 Vitamin D deficiency, unspecified; J32.9 Chronic sinusitis, unspecified; F41.8 Other specified anxiety disorders; Z98.84 Bariatric surgery status; Z85.828 Personal history of other malignant neoplasm of skin; Z86.010 Personal history of colon polyps; Z98.1 Arthrodesis status; W18.2XXA Fall in (into) shower or empty bathtub, initial encounter
CPT/HCPCS: 72100; 73502; 99283

== ENCOUNTER 2022-04-01 06:49 | Outpatient (CLI) | payer MEDICARE, OTHER, SELFPAY ==
[2022-04-01 08:05] LABS: Appearance Urine Clear (Clear); Bilirubin Urine Negative (Negative); Blood Urine Negative (Negative); Color Urine Yellow (Yellow); Glucose Urine UA Negative (Negative); Ketones Urine Trace mg/dL (Negative); Leukocyte Esterase Ur Negative LEU/UL (Negative); Nitrate Urine Negative (Negative); Protein Urine Negative (Negative); Specific Grav Ur <= 1.005 (1.001-1.035); Urobilinogen Urine 0.2 mg/dL (<2.0); pH Urine 5.5 (5.0-9.0)
[2022-04-01 08:27] LABS: Add Urine Microscopic? YES
[2022-04-01 08:28] LABS: RBC Urine 0-2 /hpf (0-2); Squamous Epithelial Cell Urine Rare /hpf (Few); WBC Urine 0-3 /hpf
== END 2022-04-01 06:50 | disposition home or self-care (01) ==
LOC: ANHLAB 06:52
PROVIDERS: PCP Internal Medicine; Visit Provider Internal Medicine
DX: N76.0 Acute vaginitis (principal)
CPT/HCPCS: 81001; 81003

== ENCOUNTER → 2022-05-14 00:41 | Day surgery (SDC) | payer MEDICARE, OTHER, SELFPAY ==
[2022-05-01 09:46] VITALS: BMI 21.2
[2022-05-14 10:32] VITALS: BP 108/87; PULSE 114; RESP 18; TEMP 36.3; O2SAT 98
--- NOTE | 2022-05-14 10:47 | WPDGIPROGNO ---
Progress Note: A&P Assessment and Plan (1) Constipation: Code(s): K59.00 - Constipation, unspecified Status: Acute Assessment and Plan: Patient complains of constipation. Rather than taking Ex-Lax daily I would advise she take MiraLax 17g p.o. daily. If this is too much then MiraLax 17g every other day or twice a week is advised. (2) Hx of colonic polyps: Code(s): Z86.010 - Personal history of colonic polyps Status: Acute Assessment and Plan: Patient has a distant history of colon polyps. Most recent colonoscopy 2019 revealed only diverticular disease recommend follow-up colonoscopy every 3-5 years. (3) Colon cancer screening: Code(s): Z12.11 - Encounter for screening for malignant neoplasm of colon Status: Acute Assessment and Plan: Colon cancer screening not indicated at this time would defer colonoscopy for 1-3 years. Reschedule colonoscopy electively at that time. (4) History of gastric bypass: Code(s): Z98.84 - Bariatric surgery status Status: Acute Subjective Date/time seen: 05/14/22 10:47 71-year-old white female patient referred by primary care service Dr. Klein for colonoscopy because of history of colon polyps. Patient presents to the GI lab today complaining of constipation. patient is uncertain when she had previous colon polyps. Review of records reveals that she did have a colonoscopy January 29, 2020 that revealed diverticulosis no polyps at that time. Patient states she has a history of gastric bypass. Was seen by Dr. Parker in 2000 and G-tube was not felt necessary. Patient apparently has been eating adequately but only a small amount after her gastric bypass. Patient denies any bleeding. She does have constipation has begun to take Ex-Lax on a frequent basis. Her who accompanies her today states that she is not as active as she used to be uses a walker to ambulate. She has no blood in her stools. Patient did not take laxatives for the colonoscopy as prescribed in fact has had coffee this morning therefore colonoscopy will be canceled. Review of Systems Review of Systems: Review of systems noncontributory. Exam Narrative: Physical exam reveals patient lying in bed. Vital signs are stable. HEENT exam reveals no icterus. Lungs are clear. Heart without murmur. Abdomen bowel sounds present soft nontender with no organomegaly. Objective Data Vital Signs Vital Signs: Vital Signs - 24 hr 05/14/22 10:32 Temperature 97.3 F L Pulse Rate 114 H Respiratory Rate 18 Blood Pressure 108/87 Pulse Oximetry 98 Oxygen Delivery Room Air Meds/Results Medications: Active Medications Generic Name Dose Route Start Last Admin Trade Name Freq PRN Reason Stop Dose Admin Lactated Ringer's 1,000 mls @ 150 mls/hr 05/13/22 14:30 Lr - Lactated Ringers Iv IV CONT .[id number] RASHID
--- NOTE | 2022-05-14 10:51 | SUR.PREOP ---
PT INTO PREOP WITH SPOUSE JEFRY. PT STATES SHE TOOK HER SECOND BOTTLE OF BOWEL PREP AT 0700 THIS AM AND DRANK COFFEE AT 0915. PT STATES HAVING DARK BROWN STOOLS. VITAL SIGNS TAKEN. DR UNDERWOOD AND DR BUTTS BOTH MADE AWARE. DR UNDERWOOD SAW PT AND DISCUSSED RESCHEDULING PROCEDURE IN ANOTHER YEAR. PT AND SPOUSE STATE UNDERSTANDING.
== END | disposition home or self-care (01) ==
PROVIDERS: PCP Internal Medicine; Visit Provider Internal Medicine Gastroenterology
PROC: 0DJD8ZZ Inspection of Lower Intestinal Tract, Via Natural or Artificial Opening Endoscopic (ICD-10-PCS; CPT 45378; principal; 2022-05-14 10:30)
DX: Z12.11 Encounter for screening for malignant neoplasm of colon (principal); K59.00 Constipation, unspecified; Z53.09 Procedure and treatment not carried out because of other contraindication
CPT/HCPCS: 99212; G0463

== ENCOUNTER 2022-09-23 12:24 | Inpatient (IN) | payer MEDICARE, OTHER, SELFPAY ==
[2022-09-23] VITALS (19 sets, daily range): BP systolic 94–144; BP diastolic 67–94; PULSE 85–109; RESP 13–32; TEMP 36.1–36.8; O2SAT 97–100; BMI 18.7
--- NOTE | ~2022-09-23 | CT_ITS ---
EXAMINATION: CT facial & cervical spine wo DATE: 09/23/2022 14:01 INDICATION: Head injury. TECHNIQUE: Computed tomography (CT) of the maxillofacial region and cervical spine was performed with out intravenous contrast. Automated exposure control and iterative reconstruction technique were empl oyed. The dose-length product was 166.96 mGy-cm. COMPARISON: Cervical spine CT 06/19/2020 FINDINGS: MAXILLOFACIAL CT: There is left cheek soft tissue swelling. There is rightward deviation of the nasal septum. There is mucosal thickening in the paranasal sinuses. There is near complete opacification of left maxillary s inus. There are changes of right uncinectomy, right middle turbinectomy, and ethmoidectomies. There i s thickening of the prado of the maxillary sinuses. The orbits are normal. CERVICAL SPINE CT: There is a fracture of C4 spinous process. There is 9 degrees dextrocurvature of cervicothoracic spin e. Vertebral body heights are normal. There is mildly decreased disc height at C4-C5 and C5-C6. The f ollowing disc levels are specifically discussed: C2-C3: There is ankylosis of the uncovertebral joints. There is ankylosis of the facet joints. There is no neural foraminal stenosis. There is no central canal stenosis. C3-C4: There is severe left uncovertebral joint osteoarthritis. There is moderate right and severe le ft facet joint osteoarthritis. There is mild left neural foraminal stenosis. There is no central emir l stenosis. C4-C5: There is no uncovertebral joint osteoarthritis. There is moderate bilateral facet joint osteoa rthritis. There is no neural foraminal stenosis. There is no central canal stenosis. C5-C6: There is mild left uncovertebral joint osteoarthritis. There is moderate bilateral facet joint osteoarthritis. There is no neural foraminal stenosis. There is no central canal stenosis. C6-C7: There is no uncovertebral joint osteoarthritis. There is mild bilateral facet joint osteoarthr itis. There is no neural foraminal stenosis. There is no central canal stenosis. C7-T1: There is no uncovertebral joint osteoarthritis. There is mild right and severe left facet join t osteoarthritis. There is no neural foraminal stenosis. There is no central canal stenosis. IMPRESSION: 1. Fracture of C4 spinous process. 2. Mild cervical spondylosis. Reviewed, dictated and finalized at location A. PROOF DOOR ASSEMBLER
--- NOTE | ~2022-09-23 | XR_ITS ---
EXAMINATION: XR chest 1V INDICATION: Cough TECHNIQUE: AP view of the chest is obtained. COMPARISON: 08/28/2020 FINDINGS: The lungs are free of acute opacities. No pleural effusion or pneumothorax. The cardiomedia stinal silhouette is normal. Vertebroplasty change is noted at T11 and T12. IMPRESSION: 1. No acute cardiopulmonary abnormality. Reviewed, dictated and finalized at location B. ALT PAVER OPERATOR
--- NOTE | ~2022-09-23 | CT_ITS ---
EXAMINATION: CT brain wo con INDICATION: Headache COMPARISON: 07/30/2020 TECHNIQUE: Standard unenhanced head CT. The dose-length product (DLP) was 605.33 mGy-cm. The mA was a djusted according to patient size. Iterative reconstruction technique was employed. FINDINGS: There is no acute intraparenchymal hemorrhage. No evidence of mass lesion. No evidence of a cute infarction. There is mild periventricular and subcortical hypodensity probably related to small vessel ischemic disease. There is mild prominence of the sulci and ventricles related to cerebral atr ophy. Intracranial calcified cerebral atherosclerosis is noted. There are no extra-axial collections. There is no mass effect or midline shift. The orbits and soft tissues are unremarkable. Again noted are changes of chronic left sinusitis with changes of maxillary antrostomy. IMPRESSION: 1. No acute intracranial abnormality. 2. Age related findings. Reviewed, dictated and finalized at location B. IVING CHECKER
--- NOTE | 2022-09-23 12:31 | ECG_ITS ---
Measurements Intervals [place] Rate: 90 P: 66 W[place]: 156 QRS: -41 QRSD: 84 T: 70 QT: 371 QTc: 456 Interpretive Statements SINUS RHYTHM LEFT AXIS DEVIATION POSSIBLE RIGHT VENTRICULAR CONDUCTION DELAY ST & T-WAVE ABNORMALITY, CONSIDER ISCHEMIA ABNORMAL ECG COMPARED TO ECG 07/30/2020 17:20:59 HEART RATE HAS DECREASED, ST ABNORMALITIES ARE MORE PROMINENT Electronically Signed On 09-23-2022 16:23:48 SHIFT SUPERVISOR by Samir Eric M.D.
[2022-09-23 13:16] LABS: Basophils Percent Auto 0.2 % (0.2-1.2); Eosinophils Percent Auto 0.2 % (0-4.4); Hemoglobin 13.9 g/dL (12.0-15.0); Immature Granulocyte Absolute 0.03 K/mm3 (0.00-0.031); Immature Granulocyte Percent A 0.7 % (0-0.5); Lymphocytes Absolute Auto 0.97 K/mm3 (0.9-3.2); Lymphocytes Percent Auto 23.3 % (18.3-44.2); Mean Corpuscular HGB Conc 34.8 g/dl (32-36); Mean Corpuscular Hemoglobin 33.8 pg (26-34); Mean Corpuscular Volume 97.3 fl (80-100); Mean Platelet Volume 10.1 fl (7.4-10.4); Monocytes Absolute Auto 0.2 K/mm3 (0.1-0.6); Neutrophils Absolute Auto 2.9 K/mm3 (1.3-6.7); Neutrophils Percent Auto 70.6 % (45.5-73.1); Platelet Count Result 353 k/mm3 (150-375); Red Blood Count 4.11 M/mm3 (4.2-5.4); White Blood Count 4.2 K/mm3 (4.5-10.0)
[2022-09-23 13:25] LABS: Chloride 100 mmol/L (98-107); Lactic Acid Reflex 2.9 mmol/L (0.7-2.0)
[2022-09-23 13:31] LABS: Alanine Aminotransferase 24 U/L (6-35); Albumin Level 2.3 g/dL (3.5-5.1); Alkaline Phosphatase 302 U/L (38-126); Anion Gap 8 mmol/L (8-16); Aspartate Amino Transferase 32 U/L (14-36); Bilirubin,Total 0.9 mg/dL (0.2-1.3); Blood Urea Nitrogen 14 mg/dL (7-17); Calcium 7.2 mg/dL (8.4-10.2); Carbon Dioxide 25 mmol/L (22-30); Creatine Kinase 36 U/L (30-135); Estimated CRCL calculation 44 ml/min; Estimated Glomerular Filt Rate > 60; Glucose 93 mg/dL (65-110); INR 2.6; Magnesium 1.6 mg/dL (1.6-2.3); Potassium 2.5 mmol/L (3.4-5.0); Prothrombin Time 26.8 Seconds (11.1-14.7); Sodium 133 mmol/L (137-145)
[2022-09-23 13:32] LABS: Partial Thromboplastin Time 56.2 SECONDS (22.3-36.8)
[2022-09-23] MEDS: SILVERGEL (ELTA) 45 ML 1 APPLIC TOPICAL (13:37)
--- NOTE | 2022-09-23 13:39 | ED.GENADULT ---
HPI - General Adult General Chief complaint: Altered Mental Status Stated complaint: decrease in pt condition, po intake, and walking a Source: family, EMS and RN notes reviewed History of Present Illness HPI narrative: Patient presents to emergency department from home via EMS for weakness. History is per EMS as well as the patient's this present. Patient has a history of epidermolysis bullosa and has had wounds on the bilateral arms for over 1 week patient's been unable to take off her sweatshirt for over a week with a sweatshirt stuck to her bilateral arms for the the patient has been becoming more progressively weak at home and not getting up and around as well patient did have a fall approximately 5 days ago and has contusion noted over the left side of the face no loss of consciousness per patient or patient states she has not been feeling well but states she has not been having fevers she denies any chest pain shortness of breath abdominal pain nausea or vomiting she does note pain to her bilateral arms from the wounds Related Data Home Medications Medication Instructions Recorded Confirmed multivitamin 1 tablet PO DAILY 06/22/19 07/26/22 donepezil 10 mg tablet 10 mg PO HS 05/01/22 07/26/22 hydrochlorothiazide 12.5 mg tablet 12.5 mg PO BID 05/01/22 07/26/22 mirtazapine 15 mg tablet 15 mg PO HS 05/01/22 07/26/22 quetiapine 100 mg tablet 200 mg PO HS 05/01/22 07/26/22 vortioxetine 20 mg tablet 20 mg PO DAILY 05/01/22 07/26/22 (Trintellix) Allergies Allergy/AdvReac Type Severity Reaction Status Date / Time cefaclor Allergy Unknown Hives Verified 09/23/22 15:23 tetanus toxoid, adsorbed Allergy Unknown Unknown Verified 09/23/22 15:23 adhesive tape AdvReac Unknown Other Verified 09/23/22 15:23 Review of Systems Review of Systems: Gen.: Denies fevers or chills Eyes: Denies eye pain or visual change ENT: Denies congestion Respiratory: Denies shortness of breath or cough CV: Denies chest pain or palpitations GI: Denies abdominal pain nausea, emesis Musculoskeletal: Denies back pain or muscle pain Neuro reports weakness Skin: See HPI Except as documented, all other systems reviewed and negative PMFSH Past Medical History Medical History Abdominal pain Adult BMI 19-24 kg/sq m Anorexia Anxiety with depression Back pain Basal cell carcinoma of nose Belching Benign essential hypertension Benign fundic gland polyps of stomach (~05/2017) BMI 20.0-20.9, adult BMI 21.0-21.9, adult BMI 22.0-22.9, adult BMI 23.0-23.9, adult BMI 25.0-25.9,adult Burst fracture of T12 vertebra Chronic back pain Chronic nausea Chronic sinusitis Cognitive dysfunction Colon cancer screening Confusion Constipation Debility Diarrhea Diverticulosis Dizziness DJD (degenerative joint disease), multiple sites Eczema Edema Elevated homocysteine Elevated LFTs Encounter for routine adult health examination with abnormal findings Encounter for routine adult health examination without abnormal findings Fall Fatigue Follow up Follow up Gastroesophageal reflux disease Hip pain History of hypertension Hx of colonic polyps Hyperplastic polyp of sigmoid colon Hyponatremia Impacted cerumen of both ears Ingrowing eyelash of lower lid Insomnia Iron deficiency anemia Mass of head Mild reactive airways disease Numbness of both lower extremities Numbness of upper extremity Pedal edema Peripheral neuropathy Physical debility Restless leg syndrome Right hip pain RLS (restless legs syndrome) Routine gynecological examination Seasonal allergies Sinusitis SOB (shortness of breath) Unsteady gait URI (upper respiratory infection) Vaginal infection Vitamin B 12 deficiency Vitamin B deficiency Vitamin B12 deficiency Vitamin D deficiency Weakness Weight loss Surgical History Surgical History History of appendectomy
[2022-09-23 13:52] LABS: Influenza A QL RT-PCR Negative (Negative); Influenza B QL RT-PCR Negative (Negative); SARS-CoV-2 RNA PCR Negative
[2022-09-23 14:16] LABS: Appearance Urine Slightly Cloudy (Clear); Bilirubin Urine 2+ (Negative); Blood Urine Trace-intact (Negative); Color Urine Amber (Yellow); Glucose Urine UA Negative (Negative); Ketones Urine Negative (Negative); Leukocyte Esterase Ur Negative LEU/UL (Negative); Nitrate Urine Negative (Negative); Protein Urine 1+ mg/dL (Negative); Specific Grav Ur 1.025 (1.001-1.035); pH Urine 5.5 (5.0-9.0)
[2022-09-23 14:22] LABS: Bacteria Urine Trace /hpf; Hyaline Casts Urine 20-29 /lpf; Mucus Urine Few /lpf; Squamous Epithelial Cell Urine Few /hpf (Few)
[2022-09-23 14:26] LABS: Add Urine Microscopic? YES
[2022-09-23] MEDS: SODIUM CHLORIDE 0.9% IV 1,000 ML 999 ML IV CONT (14:28)
--- NOTE | 2022-09-23 14:35 | PC.NURSE ---
c Collar placed on patient at this time
[2022-09-23] MEDS: POTASSIUM CHLORIDE INJ 40 MEQ in SODIUM CHLORIDE 0.9% IV 500 ML 130 MEQ IVPB (14:36)
[2022-09-23] MEDS: POTASSIUM CHLORIDE 20 MEQ PACKET (FOR LIQUID) 40 MEQ PO (14:55)
[2022-09-23] MEDS: metroNIDAZOLE 500 MG/ISO 100ML 500 MG/100 ML BAG 100 MG IVPB ×2 (15:36→20:47)
[2022-09-23 16:13] LABS: Reflex Lactic Acid Yes or No Add Lactic
[2022-09-23 16:56] LABS: Lactic Acid 1.2 mmol/L (0.7-2.0)
--- NOTE | 2022-09-23 18:45 | ADMGEN ---
This patient, Juliet Weinstein, was admitted to Medical Room 349-01. Patient/family oriented to hospital policies and general routines including ID bracelet, bed and alarms, visiting hours, pain management, procedures, bathroom and other care routines, personal items, smoking policy, room service/diet, and visiting hours. Information on how to activate the Rapid Response Team has been discussed. Patient/Family are encouraged to report perceived risks to care and to ask questions if they do not understand what they are told or what they should do.
[2022-09-23] MEDS: OLANZapine 10 MG INJ VIAL 5 MG IM (19:43)
--- NOTE | 2022-09-23 22:52 | PM.IMHP ---
H&P: HPI History of Present Illness Date/Time: 09/23/22 22:52 Chief Complaint: Altered mental status Narrative: This is a 72-year-old female patient who has a history of dementia and she lives with her . The patient came to the emergency room for complaint of weakness. The was at the bedside in the emergency room. 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 The patient fell approximately 5 days ago and has a contusion noted over her left side of her face. No fever chills. The sweater was cut off and wound care nurse Jo to care for the wounds in the emergency room. Patient has 2 large patches on bilateral arms and she has a patch on her chest. Chest x-ray was read as no acute cardiopulmonary abnormality. Head cervical spine and facial CT was read as fracture of see for spinous process. Mild cervical spondylosis. No acute intracranial abnormality.. Age-related findings. Neurosurgery has been consulted and cervical spine collar was placed on the patient. The patient has a large purple bruise over the left eye. White count 4.2. INR is 2.6. Potassium 2.5 and sodium 133. Patient was started on Levaquin and Flagyl in the emergency room for the skin infection. She was given 3 L of IV fluids. Her wounds were dressed by the wound care nurse with silver gel. Her potassium was replaced. The patient is being admitted to observation on the date of service of 09/23/2022 Review of Systems Review of Systems: The patient has dementia and is not able to answer questions. All systems reviewed & are unremarkable except as noted in HPI and below Constitutional: Constitutional: Reports as per HPI and Reports no additional constitutional complaints Eyes: Eyes: Reports as per HPI and Reports no additional eye complaints ENT: Reports system reviewed and no additional complaints, except as documented and Reports Normal hearing present Cardiovascular: Cardiovascular: Reports no additional cardiovascular complaints Respiratory: Respiratory: Reports no additional respiratory complaints and Reports no additional respiratory complaints Gastrointestinal: Gastrointestinal: Reports as per HPI and Reports no additional gastrointestinal complaints Musculoskeletal: Musculoskeletal: Reports no additional musculoskeletal complaints Integumentary/Breasts: Skin/Breast: Reports system reviewed and no additional complaints, except as docu and Reports as per HPI Neurologic: Reports system reviewed and no additional complaints, except as documented, Reports as per HPI and Reports Normal hearing present Psychiatric: Psychiatric: Reports no additional psychiatric complaints and Reports as per HPI Endocrine: Endocrine: Reports no additional endocrine complaints Hematologic/Lymphatic: Hematologic/Lymphatic: Reports no additional hematologic/lymphatic complaints Allergic/Immunologic: Allergic/Immunologic: Reports no additional allergic/immunologic complaints PMFSH Past Medical History Medical History Abdominal pain Adult BMI 19-24 kg/sq m Anorexia Anxiety with depression Back pain Basal cell carcinoma of nose Belching Benign essential hypertension Benign fundic gland polyps of stomach (~05/2017) BMI 20.0-20.9, adult BMI 21.0-21.9, adult BMI 22.0-22.9, adult BMI 23.0-23.9, adult BMI 25.0-25.9,adult Burst fracture of T12 vertebra Chronic back pain Chronic nausea Chronic sinusitis Cognitive dysfunction Colon cancer screening Confusion Constipation Debility Diarrhea Diverticulosis Dizziness DJD (degenerative joint disease), multiple sites Eczema Edema Elevated homocysteine Elevated LFTs Encounter for routine adult health examination with abnormal findings Encounter for routine adult health examination without abnormal findings Fall Fatigue Follow up Follow up Gastroesophageal reflux disease
[2022-09-23] MEDS: MIRTAZAPINE 15 MG TABLET PO (23:25)
[2022-09-23] MEDS: QUEtiapine FUMARATE 100 MG TABLET 200 MG PO (23:25)
[2022-09-23] MEDS: DONEPEZIL HCL 10 MG TABLET PO (23:25)
[2022-09-24] VITALS (9 sets, daily range): BP systolic 125–140; BP diastolic 74–84; PULSE 69–104; RESP 18–22; TEMP 36.1–37; O2SAT 97–100
[2022-09-24] MEDS: metroNIDAZOLE 500 MG/ISO 100ML 500 MG/100 ML BAG 100 MG IVPB ×3 (02:40→17:33)
[2022-09-24 05:54] LABS: Basophils Percent Auto 0.7 % (0.2-1.2); Eosinophils Percent Auto 0.2 % (0-4.4); Hematocrit 29.7 % (37.0-47.0); Hemoglobin 9.8 g/dL (12.0-15.0); Immature Granulocyte Absolute 0.04 K/mm3 (0.00-0.031); Lymphocytes Absolute Auto 1.23 K/mm3 (0.9-3.2); Lymphocytes Percent Auto 29.5 % (18.3-44.2); Mean Corpuscular Hemoglobin 34.3 pg (26-34); Mean Corpuscular Volume 103.8 fl (80-100); Mean Platelet Volume 10.3 fl (7.4-10.4); Monocytes Absolute Auto 0.3 K/mm3 (0.1-0.6); Monocytes Percent Auto 6.2 % (2.6-8.5); Neutrophils Absolute Auto 2.6 K/mm3 (1.3-6.7); Neutrophils Percent Auto 62.4 % (45.5-73.1); Platelet Count Result 194 k/mm3 (150-375); Red Blood Count 2.86 M/mm3 (4.2-5.4); Red Cell Distribution Width 15.3 % (11.5-14.5); White Blood Count 4.2 K/mm3 (4.5-10.0)
[2022-09-24 06:14] LABS: Lactic Acid Reflex 1.4 mmol/L (0.7-2.0)
[2022-09-24 07:35] LABS: Alanine Aminotransferase 18 U/L (6-35); Albumin Level 1.6 g/dL (3.5-5.1); Alkaline Phosphatase 186 U/L (38-126); Anion Gap 4 mmol/L (8-16); Aspartate Amino Transferase 24 U/L (14-36); Bilirubin,Total 0.7 mg/dL (0.2-1.3); Blood Urea Nitrogen 14 mg/dL (7-17); Calcium 6.5 mg/dL (8.4-10.2); Carbon Dioxide 17 mmol/L (22-30); Chloride 106 mmol/L (98-107); Estimated CRCL calculation 50 ml/min; Estimated Glomerular Filt Rate > 60; Glucose 58 mg/dL (65-110); Magnesium 1.4 mg/dL (1.6-2.3); Potassium 3.3 mmol/L (3.4-5.0); Sodium 127 mmol/L (137-145)
[2022-09-24 08:22] LABS: Glucose Point of Care 63 mg/dl (65-105)
[2022-09-24 10:18] LABS: Iron 89 ug/dL (37-170)
[2022-09-24] MEDS: MAGNESIUM SULF 2 GM/WATER 50ML 2 GM/50 ML BAG IVPB (10:28)
[2022-09-24 10:30] LABS: Percent Iron Saturation 76 % (20-50)
--- NOTE | 2022-09-24 11:13 | PCOTNOTE ---
Pt. awaiting neurosurgery consultation. Nursing aware. Due to concern for safety pt. to been seen after consult. Following.
[2022-09-24 11:46] LABS: Folic Acid 6.2 ng/mL (2.76->20)
--- NOTE | 2022-09-24 12:23 | PCPTNOTE ---
Pt. awaiting neurosurgery consultation. Due to concern for safety pt. to been seen after consult. Following.
--- NOTE | 2022-09-24 13:00 | PC.NURSE ---
Attempted to arouse patient several times. is bedside and has attempted to wake patient up. Patient will not fully awake for morning oral medications. Patient responds verbally that she is sleeping and then immediately dozes back to sleep. Hospitalist Shirley aware that RN is unable to give medications for patient to swallow safely.
[2022-09-24 14:39] LABS: Hematocrit 27.6 % (37.0-47.0); Hemoglobin 9.6 g/dL (12.0-15.0)
[2022-09-24 14:48] LABS: Sodium 124 mmol/L (137-145)
--- NOTE | 2022-09-24 15:33 | PM.IMPN ---
Progress Note: A&P Assessment and Plan (1) Closed fracture of spinous process of cervical vertebra: Code(s): S12.9XXA - Fracture of neck, unspecified, initial encounter Status: Acute (2) Fall: Code(s): W19.XXXA - Unspecified fall, initial encounter Status: Acute (3) Epidermolysis bullosa: Code(s): Q81.9 - Epidermolysis bullosa, unspecified Status: Acute (4) Electrolyte abnormality: Code(s): E87.8 - Other disorders of electrolyte and fluid balance, not elsewhere classified Status: Acute (5) Anemia: Code(s): D64.9 - Anemia, unspecified Status: Acute (6) Failure to thrive: Status: Acute Plan Patient suffered a fall home several days prior to presentation. Imaging on admission revealed a fracture of the C4 spinous process. Patient has been placed in a cervical collar. Appreciate Neurosurgery recommendations. Continue with supportive care. Implement fall precautions patient with history of epidermolysis bullosa presented wounds on her bilateral forearms and her clothing was stuck to these wounds and remained in place for over 1 week. Patient has been evaluated by the wound nurse and these wounds have been dressed appropriately. There is concern for secondary infection of these wounds, therefore patient has been placed on Levaquin and Flagyl. Blood cultures are pending patient with multiple electrolyte abnormalities including hyponatremia, hypokalemia, hypomagnesemia. Potassium and magnesium have been supplemented. Sodium is low which may be related to dehydration. begin gentle IV fluid rehydration as patient is not really tolerating oral intake. Recheck sodium this evening to ensure remaining stable H&H with 4 point decline from presentation. Iron panel, B12, folate, and stool occult blood test are pending. H&H remaining stable today with no evidence of active bleeding. Continue to monitor Patient with overall decline for the past several weeks. Care coordination discussed with patient's family request and hospice informational meeting. Family hopeful for discharge to hospice tomorrow. Continue with above treatment until hospice meeting has been arranged Time Spent With Patient Time: 50 minutes spent on this encounter Time with patient: Greater than 35 minutes Subjective Date/time seen: 09/24/22 15:33 Interval history: Date of service: 09/24/2022 Juliet Weinstein is a 72-year-old female with history of hypertension, iron deficiency anemia, and epidermolysis bullosa who is seen in follow-up for weakness in overall general decline. Patient suffered a fall at home several days prior and developed C4 spinous process fracture. The patient is not able to provide any history in cannot answer any questions. Review of Systems Review of Systems: ROS unobtainable: Yes unobtainable due to mental status Exam Narrative: General: chronically ill-appearing 72-year-old female, supine in bed , comfortable, NARD Neuro: awake, not able to answer any questions verbally, no focal neuro deficits noted HEENMT: left facial contusion, EOMI, sclerae anicteric Neck: Wearing cervical collar Respiratory: clear to auscultation anteriorly, nonlabored breathing Cardio: regular rate, regular rhythm with S1-S2 Abdomen: nondistended, normoactive bowel sounds, soft, nontender to palpation Extremities: no edema, erythema, or tenderness to palpation, DP pulses 2+ bilaterally Skin: scarring anterior chest and bilateral forearms with multiple skin tears bilateral forearms, warm and dry Psych: judgment and insight poor Objective Data Vital Signs Vital Signs: Vital Signs - 24 hr 09/23/22 16:42 09/23/22 16:32 09/23/22 16:57 Temperature Pulse Rate 85 87 Respiratory Rate 14 17 24 H Blood Pressure 102/67 Pulse Oximetry 100 100 Oxygen Delivery 09/23/22 17:00 09/23/22 17:15 09/23/22 17:16 Temperature Pulse Rate 85 86 Respiratory Rate 16 26 H 17
[2022-09-24] MEDS: SODIUM CHLORIDE 0.9% IV 1,000 ML 70 ML IV CONT (17:33)
--- NOTE | 2022-09-24 18:10 | PC.NURSE ---
Spoke with Dr Nath and patient no longer needs to wear a rigid cervical collar. However patient will need to wear a soft collar when out of the bed.
[2022-09-24] MEDS: DONEPEZIL HCL 10 MG TABLET PO (20:52)
[2022-09-24] MEDS: QUEtiapine FUMARATE 100 MG TABLET 200 MG PO (20:52)
[2022-09-24] MEDS: PANTOPRAZOLE 40 MG TABLET BY MOUTH (20:52)
[2022-09-24] MEDS: MIRTAZAPINE 15 MG TABLET PO (20:52)
[2022-09-25] VITALS (10 sets, daily range): BP systolic 105–118; BP diastolic 59–80; PULSE 70–98; RESP 16; TEMP 36.6–36.9; O2SAT 98–100
[2022-09-25] MEDS: metroNIDAZOLE 500 MG/ISO 100ML 500 MG/100 ML BAG 100 MG IVPB ×3 (00:05→13:28)
[2022-09-25 01:07] LABS: Sodium 126 mmol/L (137-145)
[2022-09-25 05:38] LABS: Anion Gap 0 mmol/L (8-16); Blood Urea Nitrogen 11 mg/dL (7-17); Calcium 6.5 mg/dL (8.4-10.2); Carbon Dioxide 20 mmol/L (22-30); Chloride 110 mmol/L (98-107); Estimated CRCL calculation 50 ml/min; Estimated Glomerular Filt Rate > 60; Glucose 64 mg/dL (65-110); Potassium 3.3 mmol/L (3.4-5.0); Sodium 130 mmol/L (137-145)
[2022-09-25 06:49] LABS: Hematocrit 29.3 % (37.0-47.0); Hemoglobin 9.8 g/dL (12.0-15.0); Mean Corpuscular HGB Conc 33.4 g/dl (32-36); Mean Corpuscular Hemoglobin 33.4 pg (26-34); Mean Platelet Volume 9.7 fl (7.4-10.4); Platelet Count Result 204 k/mm3 (150-375); Red Blood Count 2.93 M/mm3 (4.2-5.4); Red Cell Distribution Width 15.5 % (11.5-14.5); White Blood Count 3.3 K/mm3 (4.5-10.0)
--- NOTE | 2022-09-25 09:56 | PCPTNOTE ---
Attempted PT evaluation. Pt is getting hospice consult this morning and RN clarifying if pt is able to work with therapy. Will follow.
[2022-09-25] MEDS: MAGNESIUM OXIDE 400 MG TABLET PO (10:02)
[2022-09-25] MEDS: MULTIVITAMINS THERAPEUTIC TAB (*BKC) 1 TABLET PO (10:02)
[2022-09-25] MEDS: FOLIC ACID 1 MG TABLET BY MOUTH (10:02)
[2022-09-25] MEDS: PANTOPRAZOLE 40 MG TABLET BY MOUTH ×2 (10:02→20:50)
[2022-09-25] MEDS: FERROUS SULFATE 324 MG TABLET PO (10:02)
[2022-09-25] MEDS: busPIRone HCL 5 MG TABLET 10 MG PO ×3 (10:02→17:39)
[2022-09-25] MEDS: VITAMIN B COMPLEX CAPSULE 2 CAP PO (10:02)
--- NOTE | 2022-09-25 11:20 | PC.NURSE ---
Call made to web applications developer MD at neurosurgery regarding clarification on the soft collar orders. Awaiting a call back.
--- NOTE | 2022-09-25 12:03 | PCOTNOTE ---
Spoke with hospitalist, Rachel Vasquez, who agreed that pt. orders for evaluation could be cancelled due to pt. now transitioning to hospice.
--- NOTE | 2022-09-25 12:36 | PCPTNOTE ---
Per OT: Spoke with hospitalist, Rachel Vasquez, who agreed that pt. orders for evaluation could be cancelled due to pt. now transitioning to hospice.
[2022-09-25 12:43] LABS: Glucose Point of Care 106 mg/dl (65-105)
[2022-09-25] MEDS: DEXTROSE 5%/0.9% SOD CHL 1,000 ML 70 ML IV CONT (13:26)
--- NOTE | 2022-09-25 16:56 | PM.IMPN ---
Progress Note: A&P Assessment and Plan (1) Closed fracture of spinous process of cervical vertebra: Code(s): S12.9XXA - Fracture of neck, unspecified, initial encounter Status: Acute Assessment and Plan: Patient suffered a fall home several days prior to presentation.? Imaging on admission revealed a fracture of the C4 spinous process.? Patient had been placed in a cervical collar.? Neurosurgery consulted and given family plans for home hospice, recommend c-collar when out of bed for comfort.? Continue with supportive care. fall precautions (2) Fall: Code(s): W19.XXXA - Unspecified fall, initial encounter Status: Acute Assessment and Plan: secondary to acute infection, electrolyte abnormality and physical decline. (3) Epidermolysis bullosa: Code(s): Q81.9 - Epidermolysis bullosa, unspecified Status: Acute Assessment and Plan: patient with history of epidermolysis bullosa presented wounds on her bilateral forearms and her clothing was stuck to these wounds and remained in place for over 1 week.? Patient has been evaluated by the wound nurse and these wounds have been dressed appropriately.? Continue silver gel ointment, mepilex dressing and oral levaquin and flagyl x 10 days. Blood cultures are negative to date. (4) Electrolyte abnormality: Code(s): E87.8 - Other disorders of electrolyte and fluid balance, not elsewhere classified Status: Acute Assessment and Plan: ?patient with multiple electrolyte abnormalities including hyponatremia 124, hypokalemia 2.5, hypomagnesemia 1.4.? Treated with IV fluids and replaced K and magnesium with IV/PO formulations. Trend electrolytes. Glucose 58 to 64 this morning. oral intake is poor. Start accu-checks AC/HS with hypoglycemia protocol. Add dextrose to IV fluids. Continue regular diet. (5) Anemia: Code(s): D64.9 - Anemia, unspecified Status: Chronic Assessment and Plan: H&H with 4 point decline from presentation.? Iron panel, B12, folate, and stool occult blood test are pending.? H&H remaining stable today with no evidence of active bleeding.? Continue to monitor (6) Failure to thrive: Status: Acute Assessment and Plan: Family plans to take the patient home with hospice tomorrow 09/26/22 albumin 1.6, BMI 18 suggesting severe protein malnutrition. Family reports she has progressively been declining in the past 4 years. Time Spent With Patient Time with patient: 25 - 35 minutes Subjective Date/time seen: 09/25/22 16:56 Interval history: Patient is a 72-year-old female with hypertension, iron deficiency anemia, and epidermolysis bullosa who is seen in follow-up for weakness in overall general decline. Patient suffered a fall at home several days prior and developed C4 spinous process fracture. She was found to have upper extremity infected, ulcerated wound to both forearms and was admitted foro further management. Patient found lying in bed. She c/o pain to her posterior neck and both arms. She endorses some weakness to both arms, however, nursing reports patient is able to feed herself, take pills and has good dexterity. Morning serum glucose 64 today. Patient reportedly snowed yesterday and not eating much. Today she ate 50% of breakfast. She has been unable to urinate this morning and had difficulty getting up to the bedside commode, per nursing. Bladder scan showed 500 mL and she was straight cathed x1 with approximately 500 mL urine removed. Family met with [facility] today and plan to take the patient home with hospice tomorrow morning. Review of Systems Review of Systems: All systems reviewed & are unremarkable except as noted in HPI and below Exam Narrative: General: Frail, older adult female sitting up in bed, comfortable, NARD Neuro: awake, oriented to self, hospital, month and year. no focal neuro deficits noted HEENT: left facial contusion, EOMI, PERRL, no nys
[2022-09-25 17:19] LABS: Glucose Point of Care 136 mg/dl (65-105)
[2022-09-25] MEDS: levoFLOXacin 750 MG TABLET PO (17:41)
[2022-09-25] MEDS: DONEPEZIL HCL 10 MG TABLET PO (20:50)
[2022-09-25] MEDS: QUEtiapine FUMARATE 100 MG TABLET 200 MG PO (20:50)
[2022-09-25] MEDS: MIRTAZAPINE 15 MG TABLET PO (20:50)
[2022-09-25 20:51] LABS: Glucose Point of Care 125 mg/dl (65-105)
[2022-09-25] MEDS: metroNIDAZOLE 250 MG TABLET 500 MG PO (21:40)
[2022-09-26] VITALS: PULSE 102
[2022-09-26 04:00] VITALS: PULSE 85
[2022-09-26] MEDS: metroNIDAZOLE 250 MG TABLET 500 MG PO (05:26)
[2022-09-26 05:53] VITALS: BP 110/58; PULSE 90; RESP 18; TEMP 36.6; O2SAT 100
[2022-09-26 08:00] VITALS: PULSE 78
[2022-09-26 08:46] LABS: Glucose Point of Care 74 mg/dl (65-105)
[2022-09-26] MEDS: DEXTROSE 5%/0.9% SOD CHL 1,000 ML 70 ML IV CONT (08:49)
[2022-09-26] MEDS: FOLIC ACID 1 MG TABLET BY MOUTH (08:52)
[2022-09-26] MEDS: busPIRone HCL 5 MG TABLET 10 MG PO (08:52)
[2022-09-26] MEDS: VITAMIN B COMPLEX CAPSULE 2 CAP PO (08:52)
[2022-09-26] MEDS: MULTIVITAMINS THERAPEUTIC TAB (*BKC) 1 TABLET PO (08:52)
[2022-09-26] MEDS: MAGNESIUM OXIDE 400 MG TABLET PO (08:52)
[2022-09-26] MEDS: FERROUS SULFATE 324 MG TABLET PO (08:52)
[2022-09-26] MEDS: SILVERGEL (ELTA) 45 ML 1 APPLIC TOPICAL (08:53)
[2022-09-26] MEDS: PANTOPRAZOLE 40 MG TABLET BY MOUTH (08:59)
--- NOTE | 2022-09-26 09:50 | PM.DS ---
DS: Admitting Diagnosis Discharge Date 09/26/2022 0950 Admitting Diagnosis Acute hypokalemia Cellulitis of bilateral arms Closed fracture of spinous process of cervical vertebra Metabolic encephalopathy Dementia RLS (restless legs syndrome) Anxiety, chronic Anemia, chronic DS: Discharge Diagnosis Discharge Diagnosis (1) Closed fracture of spinous process of cervical vertebra: Qualifiers: Encounter type: initial encounter Qualified Code(s): S12.9XXA - Fracture of neck, unspecified, initial encounter Code(s): S12.9XXA - Fracture of neck, unspecified, initial encounter Status: Acute (2) Fall: Qualifiers: Encounter type: initial encounter Qualified Code(s): W19.XXXA - Unspecified fall, initial encounter Code(s): W19.XXXA - Unspecified fall, initial encounter Status: Acute (3) Epidermolysis bullosa: Code(s): Q81.9 - Epidermolysis bullosa, unspecified Status: Acute (4) Anemia: Qualifiers: Anemia type: unspecified type Qualified Code(s): D64.9 - Anemia, unspecified Code(s): D64.9 - Anemia, unspecified Status: Chronic (5) Failure to thrive: Qualifiers: Failure to thrive age range: in adult Qualified Code(s): R62.7 - Adult failure to thrive Status: Acute (6) Acute hypokalemia: Code(s): E87.6 - Hypokalemia Status: Acute (7) Hyponatremia: Code(s): E87.1 - Hypo-osmolality and hyponatremia Status: Acute (8) Weakness: Code(s): R53.1 - Weakness Status: Acute (9) Hypomagnesemia: Code(s): E83.42 - Hypomagnesemia Status: Acute (10) Palliative care encounter: Code(s): Z51.5 - Encounter for palliative care Status: Acute (11) Hypoglycemia: Code(s): E16.2 - Hypoglycemia, unspecified Status: Acute (12) Cellulitis: Qualifiers: Site of cellulitis: extremity Site of cellulitis of extremity: upper extremity Laterality: unspecified laterality Qualified Code(s): L03.119 - Cellulitis of unspecified part of limb Code(s): L03.90 - Cellulitis, unspecified Status: Acute (13) Acute metabolic encephalopathy: Code(s): G93.41 - Metabolic encephalopathy Status: Acute (14) Urinary retention: Code(s): R33.9 - Retention of urine, unspecified Status: Acute DS: Summary Hospital Course Reason for hospitalization: Altered mental status Hospital Course: Juliet Weinstein is a 72-year-old female with hypertension, iron deficiency anemia, and epidermolysis bullosa who is seen in follow-up for weakness in overall general decline.? Patient suffered a fall at home several days prior and developed C4 spinous process fracture.? She was found to have upper extremity infected, ulcerated wounds to both forearms and right lower extremity. She was admitted for further management. 1. Closed fracture of spinous process of cervical vertebra: Patient suffered a fall home several days prior to presentation.? Imaging on admission revealed a fracture of the C4 spinous process.? Patient had been placed in a cervical collar.? Neurosurgery consulted and given family plans for home hospice, recommend c-collar when out of bed for comfort.? fall precautions 2. Fall secondary to acute infection, electrolyte abnormality and physical decline. PT/OT consulted 3. Epidermolysis bullosa: Cellulitis, BUE and right thigh patient with history of epidermolysis bullosa presented wounds on her bilateral forearms and her clothing was stuck to these wounds and remained in place for over 1 week.? Patient has been evaluated by the wound nurse and these wounds treated with silver gel, mepilex nonstick dressing and dry gauze.? Treated with IV levaquin and flagyl and transitioned to oral regimen to complete 10 days course.? Blood cultures are negative to date. 4. Hypokalemia: 5. Hyponatremia: 6. Hypomagnesemia: patient with multiple electroly
[2022-09-26 12:29] LABS: Glucose Point of Care 68 mg/dl (65-105)
== END 2022-09-26 13:38 | disposition hospice, home (50) | DRG 551 ==
LOC: ANHED 16:01 → ANH3MED 17:47
PROVIDERS: Nurse Practitioner; Physician Assistant; Admitting Provider Family Medicine; Emergency Provider Emergency Medicine; PCP Internal Medicine; Visit Provider Nurse Practitioner Family
DX: S12.300A Unspecified displaced fracture of fourth cervical vertebra, initial encounter for closed fracture (principal); E43 Unspecified severe protein-calorie malnutrition; G93.41 Metabolic encephalopathy; Z68.1 Body mass index [BMI] 19.9 or less, adult; E87.1 Hypo-osmolality and hyponatremia; L03.114 Cellulitis of left upper limb; L03.113 Cellulitis of right upper limb; L03.115 Cellulitis of right lower limb; Q81.9 Epidermolysis bullosa, unspecified; Z20.822 Contact with and (suspected) exposure to COVID-19; R23.4 Changes in skin texture; F03.90 Unspecified dementia, unspecified severity, without behavioral disturbance, psychotic disturbance, mood disturbance, and anxiety; F41.8 Other specified anxiety disorders; K57.90 Diverticulosis of intestine, part unspecified, without perforation or abscess without bleeding; I10 Essential (primary) hypertension; L30.9 Dermatitis, unspecified; W19.XXXA Unspecified fall, initial encounter; K21.9 Gastro-esophageal reflux disease without esophagitis; G62.9 Polyneuropathy, unspecified; E16.2 Hypoglycemia, unspecified; E86.0 Dehydration; E87.6 Hypokalemia; E83.42 Hypomagnesemia; D50.9 Iron deficiency anemia, unspecified; R33.9 Retention of urine, unspecified; R62.7 Adult failure to thrive; G25.81 Restless legs syndrome; Z85.828 Personal history of other malignant neoplasm of skin; Z90.49 Acquired absence of other specified parts of digestive tract; Z98.84 Bariatric surgery status; Z98.1 Arthrodesis status; Z51.5 Encounter for palliative care
CPT/HCPCS: 36415; 70450; 70486; 71045; 72125; 80048; 80053; 81001; 82550; 82607; 82728; 82746; 82948; 83540; 83550; 83605; 83735; 84295; 84443; 85014; 85018; 85025; 85027; 85610; 85730; 87040; 87086; 87088; 87636; 93005; 96365; 96366; 96367; 96368; 96372; 96376; 99285; A9270; G0378; J0131; J1956; J3475; J7030; J7040; J7042; L0140